=== PATIENT | female | born 1940 | race Two or more races ===

== ENCOUNTER 2020-07-01 17:54 | Inpatient (IN) | payer MEDICARE, MEDICAID ==
[~2020-07-01] VITALS: Ht 162.6 cm; Wt 81.2 kg
[~2020-07-01 17:54] MED LIST: AUGMENTIN 875-1 EAC1 ORAL; BACTRIM DS TAB1 EAC1 ORAL; NORCO 5-325 TA1 EAC1 ORAL; ZOFRAN4 MG ORAL
--- NOTE | 2020-07-01 18:23 | Emergency Room Report ---
History of Present Illness General Chief Complaint: Headache Source: Patient Present Illness HPI Disclaimer: Please note that this report is being documented using [employer] technology. This can lead to erroneous entry secondary to incorrect interpretation by the dictating instrument. HPI: 80-year-old female presents for evaluation of headache and fatigue. Symptoms present 3 days. Denies inciting injury but reports initially a pressure in the back of her head which then spread to the entire scalp. She reports feeling intermittently dizzy. No connection with head movements. Denies ringing in her ears or pain. Denies chest pain, palpitations, nausea, vomiting, diarrhea. She feels globally fatigued. Denies fevers but states she has felt "warm." Denies cough or congestion but states she does feel a little bit short of breath. She reports pressure in the frontal sinuses. Denies nasal congestion or sore throat. Received COVID-19 vaccine 3 weeks ago. PMH: Diabetes, obesity, hypertension PSH: Reviewed Allergies: Reviewed Social Hx: Reviewed Allergies: Coded Allergies: No Known Allergies (Unverified , 02/22/15) Nursing Documentation-PMH Hx Hypertension: Yes Hx Diabetes: Yes Hx Neurological Problems: Yes - Sciatica Review of Systems All Other Systems: negative except mentioned in HPI Physical Exam General: Awake and alert, appears moderately uncomfortable, hypertensive on arrival HEENT: NC/AT. EOMI. Cardiovascular: Tachycardic Resp: Slight tachypnea. Normal work of breathing. No cough, wheezing or crackles appreciated Abdomen: Abdomen is soft, nondistended. Obese abdomen. Nontender Skin: Intact. No abrasions, laceration or rash over the exposed skin MSK: Normal tone and bulk. Moving all extremities. No obvious deformity. Neuro: Awake and alert. Mentating appropriately. No ataxia on [id number] testing. Medical Decision Making Diagnostic Impression: Primary Impression: Hypertensive urgency Additional Impressions: Hiatal hernia Weakness Anemia ER Course 80-year-old female presents for evaluation of headache, fatigue of the past 3 days. Differential includes was not limited to hypertensive urgency, hypertensive emergency, ICH, CVA, ACS, dehydration, electrolyte abnormality, viral syndrome, labyrinthitis, vestibular neuritis, BPPV among others. EKG shows sinus tachycardia but no signs of acute ischemia. Chest x-ray shows some vascular congestion vs infiltratre herniation of bowel in the left side vs mass. CT ordered to further evaluate. CT shows large hiatal hernia, moderate left base atelectasis, evidence of cirrhosis and cholecystectomy. Patient's blood pressures are improving. She is still tachypneic with mild increase in work of breathing. May be mass-effect of the hernia. Heart rate borderline elevated. She appears weak. Antibiotics given for possible pneumonia coverage. Will admit for further work-up. Laboratory Tests Test 07/01/20 18:26 White Blood Count 12.9 K/UL (4.8-10.8) H Red Blood Count 4.28 M/UL (4.20-5.40) Hemoglobin 9.3 G/DL (12.0-16.0) L Hematocrit 31.1 % (37.0-47.0) L Mean Corpuscular Volume 73 FL (80-99) L Mean Corpuscular Hemoglobin 21.7 PG (27.0-31.0) L Mean Corpuscular Hemoglobin Concent 29.8 G/DL (32.0-36.0) L Red Cell Distribution Width 18.2 % (11.6-14.8) H Platelet Count 320 K/UL (150-450) Mean Platelet Volume 7.1 FL (6.5-10.1) Neutrophils (%) (Auto) 58.2 % (45.0-75.0) Lymphocytes (%) (Auto) 31.4 % (20.0-45.0) Monocytes (%) (Auto) 7.2 % (1.0-10.0) Eosinophils (%) (Auto) 1.9 % (0.0-3.0) Basophils (%) (Auto) 1.4 % (0.0-2.0) Prothrombin Time 12.3 SEC (9.30-11.50) H Prothrombin Time INR 1.1 (0.9-1.1) Activated Partial Thromboplast Time 26 SEC (23-33) Sodium Level 138 MMOL/L (136-145) Potassium Level 4.5 MMOL/L (3.5-5.1) Chloride Level 103 MMOL/L (98-107) Carbon Dioxide Level 22 MMOL/L (21-32) Anion Gap 13 mmol/L (5-15) Blood Urea Nitrogen 14 mg/dL (7-18) Creatinine 1.2 MG/DL (0.55-1.30) Estimated Glomerular Filtration Rate 43.1 mL/min (>60) Glucose Level 163 MG/DL (74-106) H Calcium Level 9.2 MG/DL (8.5-10.1) Total Bilirubin 0.2 MG/DL (0.2-1.0) Aspartate Amino Transferase (AST) 76 U/L (15-37) H Alanine Aminotransferase (ALT) 43 U/L (12-78) Alkaline Phosphatase 172 U/L (46-116) H Troponin I 0.048 ng/mL (0.000-0.056) Pro-B-Type Natriuretic Peptide 203 pg/mL (0-125) H Total Protein 8.5 G/DL (6.4-8.2) H Albumin 3.2 G/DL (3.4-5.0) L Globulin 5.3 g/dL Albumin/Globulin Ratio 0.6 (1.0-2.7) L EKG Diagnostic Results Troponin ordered: Yes When was troponin ordered?: Jul 01, 2020 EKG Time: 18:24 Rate: normal Rhythm: NSR ST Segments: no acute changes Other Impression Sinus tachycardia, normal axis. No obvious ST segment changes. Normal intervals. Rhythm Strip Diag. Results Rhythm Strip Time: 18:24 EP Interpretation: yes Rate: 120s Rhythm: NSR, no PVC's, no ectopy Chest X-Ray Diagnostic Results Chest X-Ray Diagnostic Results : Chest X-Ray Ordered: Yes # of Views/Limited/Complete: 1 View Indication: Shortness of Breath EP Interpretation: Yes Interpretation: no pneumothorax, other - Bilateral vascular congestion questionable infiltrate left lower lobe Impression: Other - Consolidation and vascular congestion Electronically Signed by: Electronically signed by Dr. Wni Eaton MD Disposition: ADMITTED INPATIENT Condition: Serious Win Eaton MD Jul 01, 2020 18:22
[2020-07-01 18:30] VITALS: BP 185/68
[2020-07-01] MEDS ORDERED: Labetalol 5mg/ml 20ml vial IV ONE (18:30)
[2020-07-01 18:38] LABS: BASOPHILS % (AUTO) 1.4 % (0.0-2.0); EOSINOPHILS % (AUTO) 1.9 % (0.0-3.0); HEMATOCRIT 31.1 % (37.0-47.0); HEMOGLOBIN 9.3 G/DL (12.0-16.0); LYMPHOCYTES % (AUTO) 31.4 % (20.0-45.0); MEAN CORPUSCULAR VOLUME 73 FL (80-99); MONOCYTES % (AUTO) 7.2 % (1.0-10.0); NEUTROPHILS % (AUTO) 58.2 % (45.0-75.0); PLATELET COUNT 320 K/UL (150-450); RED BLOOD COUNT 4.28 M/UL (4.20-5.40); RED CELL DISTRIBUTION WIDTH 18.2 % (11.6-14.8); WHITE BLOOD COUNT 12.9 K/UL (4.8-10.8)
[2020-07-01 18:45] LABS: CALCIUM 9.2 MG/DL (8.5-10.1); CREATININE 1.2 MG/DL (0.55-1.30); POTASSIUM 4.5 MMOL/L (3.5-5.1)
[2020-07-01 18:46] LABS: INR 1.1 (0.9-1.1)
[2020-07-01 18:58] LABS: ALBUMIN 3.2 G/DL (3.4-5.0); ALBUMIN/GLOBULIN RATIO 0.6 (1.0-2.7); BILIRUBIN,TOTAL 0.2 MG/DL (0.2-1.0)
[2020-07-01] MEDS ORDERED: Nitroglycerin 2% oint pkt TOPIC ONE (19:00)
--- NOTE | 2020-07-01 19:00 | NUR ---
pt brought in with complaints of weakness and elevated blood pressure, pt is calm AOx4, tachycardic, and hypertensive, and tachypnic ct pending
--- NOTE | 2020-07-01 19:10 | Diagnostic Imaging Report ---
EXAM: XR Chest, 1 View CLINICAL HISTORY: SOB TECHNIQUE: Frontal view of the chest. COMPARISON: No relevant prior studies available. FINDINGS: Lungs: Low lung volumes with bronchovascular crowding. Left midlung and base opacities could represent consolidation, some component of small pleural effusion, or hollow visceral herniation. Retrocardiac atelectasis without or with consolidation. Pleural space: See above. Heart: Unremarkable. No cardiomegaly. Mediastinum: Unremarkable. Bones/joints: No acute abnormality IMPRESSION: 1. Low lung volumes with bronchovascular crowding. 2. Left midlung and base opacities could represent consolidation, some component of small pleural effusion, or hollow visceral herniation. 3. Recommend CT chest or PA and lateral chest radiographs to further evaluate left midlung and base findings. 4. Retrocardiac atelectasis without or with consolidation.
[2020-07-01] MEDS ORDERED: LORazepam Inj 2mg/ml 1ml IV ONE (20:00)
--- NOTE | 2020-07-01 20:43 | Diagnostic Imaging Report ---
EXAM: CT Head Without Intravenous Contrast CLINICAL HISTORY: H/A TECHNIQUE: Axial computed tomography images of the head/brain without intravenous contrast. CTDI is 53.40 mGy and DLP is 1018.80 mGy-cm. One or more of the following dose reduction techniques were used: automated exposure control, adjustment of the mA and/or kV according to patient size, use of iterative reconstruction technique. COMPARISON: No relevant prior studies available. FINDINGS: Brain: Parenchymal volume loss. Nonspecific white matter hypoattenuation likely secondary to chronic microvascular ischemia. Cerebrovascular ASVD. No hemorrhage. Ventricles: Unremarkable. No ventriculomegaly. Bones/joints: Unremarkable. No acute fracture. Soft tissues: Unremarkable. Sinuses: Unremarkable as visualized. No acute sinusitis. Mastoid air cells: Unremarkable as visualized. No mastoid effusion. IMPRESSION: 1. No acute intracranial abnormality. 2. Mild chronic senescent findings above.
--- NOTE | 2020-07-01 20:51 | Diagnostic Imaging Report ---
EXAM: CT Chest Without Intravenous Contrast CLINICAL HISTORY: SOB TECHNIQUE: Axial computed tomography images of the chest without intravenous contrast. CTDI is 8.1 mGy and DLP is 239.7 mGy-cm. One or more of the following dose reduction techniques were used: automated exposure control, adjustment of the mA and/or kV according to patient size, use of iterative reconstruction technique. COMPARISON: No relevant prior studies available. FINDINGS: Lungs: Moderate left base passive atelectasis, correlate to exclude consolidation. Otherwise unremarkable lungs. Pleural space: Unremarkable. No pneumothorax. No significant effusion. Heart: Unremarkable. No cardiomegaly. No significant pericardial effusion. Mediastinum: Large hiatal hernia in the left thoracic cavity containing the majority of the organoaxial rotated, partially fluid- containing stomach. Bones/joints: Unremarkable. No acute fracture. No dislocation. Soft tissues: Recommend endoscopy to further evaluate distal esophageal/GE junction region soft tissue thickening, neoplasm not excluded. Vasculature: Unremarkable. No thoracic aortic aneurysm. Lymph nodes: Unremarkable. No enlarged lymph nodes. Liver: Cirrhosis. Gallbladder and bile ducts: Cholecystectomy. IMPRESSION: 1. Large hiatal hernia in the left thoracic cavity containing the majority of the organoaxial rotated, partially fluid-containing stomach. 2. Moderate left base passive atelectasis, correlate to exclude consolidation. 3. Otherwise unremarkable lungs. 4. Recommend endoscopy to further evaluate distal esophageal/GE junction region soft tissue thickening, neoplasm not excluded. 5. Cirrhosis. 6. Cholecystectomy.
[2020-07-01] MEDS ORDERED: Azithromycin 500 MG in NS 275 ML IV ONE (21:15)
[2020-07-01] MEDS ORDERED: cefTRIAXone 1 GM in NS 55 ML IVPB ONE (21:15)
--- NOTE | 2020-07-01 21:38 | NUR ---
ED Nurse Note: urine and blood cultures collected and sent to lab
--- NOTE | 2020-07-01 21:45 | NUR ---
Liana caicedo in [facility] - 07/01/20 at 2146 by NOLAN 7
--- NOTE | 2020-07-01 21:46 | NUR ---
ED Nurse Note: pt daughter took all persoanl belongings
[2020-07-01 21:51] LABS: BILIRUBIN, URINE NEGATIVE (NEGATIVE); GLUCOSE, URINE (UA) NEGATIVE (NEGATIVE); KETONES,URINE NEGATIVE (NEGATIVE); LEUKOCYTE ESTERASE ,URINE 1+ (NEGATIVE); NITRITE,URINE NEGATIVE (NEGATIVE); PH,URINE 5 (4.5-8.0); PROTEIN,URINE 2+ (NEGATIVE); UROBILINOGEN,URINE 1 MG/DL (0.0-1.0)
[2020-07-01 22:03] LABS: APPEARANCE,URINE SLIGHTLY CLOUDY; COLOR,URINE YELLOW
[2020-07-01 23:00] VITALS: BP 137/57
[2020-07-01 23:22] VITALS: BP 131/57
--- NOTE | 2020-07-01 23:30 | NUR ---
TRANSFER TO FLOOR: Patient transferred to Tele as ordered, per MD. Report given to Jaren RAY. Belongings and medications taken with daughter
--- NOTE | 2020-07-02 00:15 | NUR ---
NURSE NOTES: Received report from Shannan RAY at ER.The patient is alert and oriented x2 Croatian speaking, was noted with confusion, forgetfulness with mild anxiety also noted. she is on 2 liters of oxygen via NC with Spo2 @ 95%, the lungs sounds are diminished on auscultation as indicated. The patient body is warm and soft with Capillary refills <2 secs.The is no open sore noted on assessment.The patient has a Left AC 20g that is intact and asymptomatic.The bed in lowest level and call light within easy reach. Will continue to monitor as indicated.
[2020-07-02 00:27] VITALS: BP 140/71
--- NOTE | 2020-07-02 00:31 | NUR ---
NURSE NOTES: The physician Dr. Washington was called for admission orders as indicated and a voice message was left on the phone. Will followup FOR ADMISSION ORDERS.
--- NOTE | 2020-07-02 01:34 | NUR ---
NURSE NOTES: All admission orders obtained from Dr. Washington and executed as indicated.
[2020-07-02 04:00] VITALS: BP 139/72
--- NOTE | 2020-07-02 07:30 | NUR ---
NURSE NOTES: assessed pt, order for venous duplex to r/o DVT placed Addendum: 07/02/20 at 6034 by Willam Miranda RN WRONG PATIENT
--- NOTE | 2020-07-02 07:36 | NUR ---
NURSE HAND-OFF REPORT: Important Events on Shift:Alert and sleeping all night Patient Status: Diet: Pending Orders: Pending Results/Labs: Pending MD notification: Latest Vital Signs: Temperature 97.6 , Pulse 84 , B/P 139 /72 , Respiratory Rate 18 , O2 SAT 96 , Room Air, O2 Flow Rate 2.0 . Vital Sign Comment: EKG Rhythm: Sinus Rhythm Rhythm change?: N MD Notified?: - MD Response: Latest Crawford Fall Score: 60 Fall Risk: High Risk Safety Measures: Call light Within Reach, Bed Alarm Zone 1, Side Rails Side Rails x2, Bed position Low and Locked. Fall Precautions: Yellow Gown Door Sign Patient Fall Education Report given to .
[2020-07-02 09:00] VITALS: BP 136/63
--- NOTE | 2020-07-02 09:34 | NUR ---
assumed care for pt at 0730. pt is awake and in bed eating breakfast. pt is more alert per previous shift. pt is on 2L NC saturating at 95% O2 sat. call light is within reach, bed is locked and in lowest position. IV L AC 20g patent and flushes.
--- NOTE | 2020-07-02 10:45 | NUR ---
assisted pt to bedside commode and gait was unsteady. pt voided.
[2020-07-02 12:00] VITALS: BP 112/53
--- NOTE | 2020-07-02 12:04 | Consultation ---
Consult Note Consult Note DATE OF CONSULTATION: 07/02/2020 CONSULTING PHYSICIAN: Sebastien Chaney MD. ATTENDING PHYSICIAN: Dr. Washington REASON FOR CONSULTATION: Respiratory distress HISTORY OF PRESENT ILLNESS: This is an 80-year-old female with past medical history of hypertension, and diabetes mellitus, who presented to the ED for evaluation of headache and fatigue x3 days. She complained of pressure in the back of her head. Patient received COVID-19 vaccine 3 weeks ago. Chest x-ray showed some vascular congestion versus infiltrate, herniation of bowel in the left side versus mass. CT was ordered to further evaluate. CT of chest showed hiatal hernia, moderate left base atelectasis, evidence of cirrhosis and cholecystectomy. Head CT was negative for acute intracranial abnormality. Patient was admitted to the hospital for further work-up. PAST MEDICAL HISTORY: Hypertension, diabetes mellitus MEDICATIONS: Full list of home medication not available at this time ALLERGIES: No known allergies FAMILY HISTORY: Noncontributory REVIEW OF SYSTEMS: Negative except mentioned in HPI PHYSICAL EXAMINATION: VITAL SIGNS: Blood pressure 136/60, heart rate 89, respiratory rate 18, weight 81 kg, height 163 cm. General: Patient laying in bed comfortably, NAD, normal work of breathing on 2 L nasal cannula HEENT: Head exam reveals that the head is normocephalic, atraumatic without deformity or unusual swelling. Pupils are PERRLA. CHEST AND LUNGS: Reveals clear, normal, symmetrical breath sounds with no adventitious sounds. CARDIOVASCULAR: Reveals normal S1, S2 without murmurs, rubs, or clicks. ABDOMEN: Soft with no tenderness or organomegaly. RECTAL: Deferred. MUSCULOSKELETAL: There is no tenderness to palpation. Range of motion is normal. NEUROLOGICAL: Alert and oriented x3 , nonfocal LABORATORY DATA: Laboratory testing shows hemoglobin 9.3, hematocrit 31.1 Chemistries show glucose 163, AST 76, alk phos 172, BNP 203, albumin 3.2 Urinalysis shows 2+ protein, 11+ leukocyte esterase, and urine bacteria Assessment/Plan 1. UTI - on Abx - f/u UCx 2. Acute respiratory distress on admission -Continue supplemental oxygen; currently saturating well on 2L NC - No indication for steroid at this time 3. Hypertensive urgency - now BP better controlled 4. COVID-19 negative (07/01) 5. DVT ppx - on SCD 6. Left base atelectasis on chest CT - Normoxemia on low flow oxygen 7. ? pneumonia; afebrile, no leukocytosis - recommend Abx for pneumonia coverage The care for this patient was discussed with my supervising physician. Time spent for this case was approximately 31 minutes. Jovan Santos Jul 02, 2020 12:04
--- NOTE | 2020-07-02 13:15 | Consultation ---
Consult Note Consult Note I am asked to evaluate the patient at the request of Dr. Garvey Patient seen, record reviewed. HPI: 80-year-old female presents for evaluation of headache and fatigue. Symptoms present 3 days. Denies inciting injury but reports initially a pressure in the back of her head which then spread to the entire scalp. She re ports feeling intermittently dizzy. No connection with head movements. Denies ringing in her ears or pain. Denies chest pain, palpitations, nausea, vomiting, diarrhea. She feels globally fatigued. Denies fevers but states she has felt "warm." Denies cough or congestion but states she does feel a little bit short of breath. She reports pressure in the frontal sinuses. Denies nasal congestion or sore throat. Received COVID-19 vaccine 3 weeks ago. PMH: Diabetes, obesity, hypertension PSH: Reviewed Allergies: Reviewed Social Hx: Reviewed Allergies: No Known Allergies (Unverified , 02/22/15) Hx Hypertension: Yes Hx Diabetes: Yes Hx Neurological Problems: Yes - Sciatica PHYSICAL EXAMINATION: VITAL SIGNS: Temperature 98, pulse 103, blood pressure 151/63. HEAD AND NECK: No oral lesion. Has lost her teeth. HEART: Tachycardic. LUNGS: Clear. ABDOMEN: Soft. EXTREMITIES: No edema. NEUROLOGIC: Awake, responsive. LABORATORY AND DIAGNOSTIC DATA: WBC today 9.9, hemoglobin 9, hematocrit 31.2, platelets 296. Sodium 141, potassium 4.5, chloride 105, bicarb 28, BUN 12, creatinine 1.1, glucose is 148. Hemoglobin A1c 7.1. Albumin is 3.5. Cultures so far negative. COVID-19 test is negative. UA showed wbc's of 5 to 10, bacteria moderate. Chest x-ray, low lung volumes and bronchoalveolar opacities , left mid lung and base opacity could represent consolidation. CT of chest showed large left hiatal hernia, moderate left base atelectasis versus consolidation, cirrhosis, cholecystectomy. . Assessment/Plan Hypertensive urgency Anemia, low MCV Weakness Hiatus hernia UTI Per orders Adjust blood pressure medication Anemia work-up Antibiotics Monitor blood pressure and renal parameters Gordon Pritchett MD Jul 02, 2020 13:15
--- NOTE | 2020-07-02 14:21 | Cardiac Electrophysiology PN ---
Subjective Subjective [id number] Objective Last 24 Hour Vital Signs Date Time Temp Pulse Resp B/P (MAP) Pulse Ox O2 Delivery O2 Flow Rate FiO2 07/02/20 13:45 98 153/77 07/02/20 09:00 97.4 89 18 136/63 (87) 96 07/02/20 08:00 93 07/02/20 04:00 97.6 84 18 139/72 (94) 96 07/02/20 01:02 83 07/02/20 00:27 97.8 74 19 140/71 (94) 95 07/02/20 00:16 Nasal Cannula 2.0 07/01/20 23:22 98.5 85 16 131/57 100 Room Air 07/01/20 23:00 98.5 87 20 137/57 100 Room Air 07/01/20 18:55 152/56 07/01/20 18:30 98.5 122 18 185/68 100 Room Air 07/01/20 18:30 Room Air 07/01/20 18:18 98.4 118 18 183/66 (105) 93 Room Air Intake and Output 07/01/20 07/02/20 19:00 07:00 Intake Total 30 ml Balance 30 ml Intake Oral 30 ml # Voids 1 Laboratory Tests Test 07/01/20 18:26 07/01/20 21:30 White Blood Count 12.9 K/UL (4.8-10.8) H Red Blood Count 4.28 M/UL (4.20-5.40) Hemoglobin 9.3 G/DL (12.0-16.0) L Hematocrit 31.1 % (37.0-47.0) L Mean Corpuscular Volume 73 FL (80-99) L Mean Corpuscular Hemoglobin 21.7 PG (27.0-31.0) L Mean Corpuscular Hemoglobin Concent 29.8 G/DL (32.0-36.0) L Red Cell Distribution Width 18.2 % (11.6-14.8) H Platelet Count 320 K/UL (150-450) Mean Platelet Volume 7.1 FL (6.5-10.1) Neutrophils (%) (Auto) 58.2 % (45.0-75.0) Lymphocytes (%) (Auto) 31.4 % (20.0-45.0) Monocytes (%) (Auto) 7.2 % (1.0-10.0) Eosinophils (%) (Auto) 1.9 % (0.0-3.0) Basophils (%) (Auto) 1.4 % (0.0-2.0) Prothrombin Time 12.3 SEC (9.30-11.50) H Prothromb Time International Ratio 1.1 (0.9-1.1) Activated Partial Thromboplast Time 26 SEC (23-33) Sodium Level 138 MMOL/L (136-145) Potassium Level 4.5 MMOL/L (3.5-5.1) Chloride Level 103 MMOL/L (98-107) Carbon Dioxide Level 22 MMOL/L (21-32) Anion Gap 13 mmol/L (5-15) Blood Urea Nitrogen 14 mg/dL (7-18) Creatinine 1.2 MG/DL (0.55-1.30) Estimat Glomerular Filtration Rate 43.1 mL/min (>60) Glucose Level 163 MG/DL (74-106) H Calcium Level 9.2 MG/DL (8.5-10.1) Total Bilirubin 0.2 MG/DL (0.2-1.0) Aspartate Amino Transf (AST/SGOT) 76 U/L (15-37) H Alanine Aminotransferase (ALT/SGPT) 43 U/L (12-78) Alkaline Phosphatase 172 U/L (46-116) H Troponin I 0.048 ng/mL (0.000-0.056) Pro-B-Type Natriuretic Peptide 203 pg/mL (0-125) H Total Protein 8.5 G/DL (6.4-8.2) H Albumin 3.2 G/DL (3.4-5.0) L Globulin 5.3 g/dL Albumin/Globulin Ratio 0.6 (1.0-2.7) L Urine Color Yellow Urine Appearance Slightly cloudy Urine pH 5 (4.5-8.0) Urine Specific [place] 1.025 (1.005-1.035) Urine Protein 2+ (NEGATIVE) H Urine Glucose (UA) Negative (NEGATIVE) Urine Ketones Negative (NEGATIVE) Urine Blood Negative (NEGATIVE) Urine Nitrite Negative (NEGATIVE) Urine Bilirubin Negative (NEGATIVE) Urine Urobilinogen 1 MG/DL (0.0-1.0) H Urine Leukocyte Esterase 1+ (NEGATIVE) H Urine RBC 0-2 /HPF (0 - 2) Urine WBC 5-10 /HPF (0 - 2) H Urine Squamous Epithelial Cells Moderate /LPF (NONE/OCC) H Urine Bacteria Moderate /HPF (NONE) H Microbiology Date/Time Source Procedure Growth Status 07/01/20 18:53 Nasopharynx SARS-CoV-2 Antigen (Rapid)([facility]) - Final Complete Jude Stone MD Jul 02, 2020 14:21
--- NOTE | 2020-07-02 15:14 | Consultation ---
DATE OF CONSULTATION: 07/02/2020 CARDIOLOGY CONSULTATION CONSULTING PHYSICIAN: Jude Stone MD. REFERRING PHYSICIAN: Swathi Washington MD. REASON FOR CONSULTATION: Management of shortness of breath and accelerated hypertension. HISTORY OF PRESENT ILLNESS: The patient is an 80-year-old lady with history of hypertension, diabetes who presented to emergency room with fatigue and headache as well as pressure in the back of her head. The patient received COVID vaccine three weeks ago. Chest x-ray showed vascular congestion versus infiltrate. CT of the chest showed hiatal hernia, moderate left-sided atelectasis, evidence of cirrhosis, and cholecystectomy. Head CT was negative for acute intracranial pathology. The patient was admitted and a Cardiology consultation was obtained for further evaluation. REVIEW OF SYSTEMS: Negative other than what was mentioned in the history of present illness. PAST MEDICAL HISTORY: As mentioned above. FAMILY HISTORY: Noncontributory. ALLERGIES: She has no known drug allergies. SOCIAL HISTORY: Denies smoking, drinking alcohol, or using drugs. PHYSICAL EXAMINATION: VITAL SIGNS: Blood pressure 153/77, pulse 98, respirations 18, temperature 97.4. HEAD AND NECK: No JVD. LUNGS: Clear. CARDIOVASCULAR: Regular S1 and S2 with no gallop or murmur. ABDOMEN: Soft. EXTREMITIES: A 1+ pitting edema. LABORATORY DATA: Labs show white count 12.9, hemoglobin 9.7, hematocrit 31.1, platelet count 320. Sodium is 138, potassium 4.5, BUN of 14, creatinine 1.2, and glucose of 163. Alkaline phosphatase is 172. BNP is 203. Troponin is negative. ASSESSMENT AND PLAN: 1. Shortness of breath. EKG shows sinus rhythm with nonspecific ST-T wave abnormalities. First troponin is negative. We will completely rule out PA protocol. We will get an echocardiogram. 2. Accelerated hypertension. Blood pressure is currently better on amlodipine 5 mg b.i.d. and p.r.n. clonidine. The patient received IV labetalol in the emergency room. 3. Shortness of breath and possible pneumonia. Further evaluation by Dr. Chaney. 4. Left base atelectasis on chest CT and possible pneumonia, antibiotic. Thank you very much for allowing me to participate in the care of this patient. Please do not hesitate to contact me for any questions regarding my evaluation. Sincerely, Jude Stone M.D. DR: Lyndsey JOB#: [id number] CC:
[2020-07-02 16:00] VITALS: BP 119/69
--- NOTE | 2020-07-02 17:06 | NUR ---
pt has been eating comfortably in bed and resting. call light is within reach and needs have been met.
[2020-07-02] MEDS: Docusate 100mg cap ORAL SCH (18:29)
--- NOTE | 2020-07-02 19:35 | NUR ---
NURSE HAND-OFF: Important Events on Shift:[] Patient Status: [] Diet: [] Pending Orders: [] Pending Results/Labs:[] Pending MD notification:[] Latest Vital Signs: Temperature 98.0 , Pulse 88 , B/P 119 /69 , Respiratory Rate 18 , O2 SAT 95 , Room Air, O2 Flow Rate 2.0 . Vital Sign Comment: [] Latest Crawford Fall Score: 60 Fall Risk: High Risk Safety Measures: Call light Within Reach, Bed Alarm Zone 1, Side Rails Side Rails x2, Bed position Low and Locked. Fall Precautions: Yellow Socks Yellow Gown Door Sign Patient Fall Education Report given to []. ronnie RAY
[2020-07-02 20:00] VITALS: BP 155/66
[2020-07-02] MEDS: cefTRIAXone 1 GM in D5W 55 ML IVPB SCH (21:35)
--- NOTE | 2020-07-02 23:59 | History and Physical Report ---
DATE OF ADMISSION: 07/01/2020 HISTORY OF PRESENT ILLNESS: Patient only speaks Georgian. Imaging shows cirrhosis, large hiatal hernia. Patient also came in, admitted for hypertensive urgency. Patient is diabetic, complained of shortness of breath, was on oxygen. Also weakness and some mild nonproductive cough. Chest x-ray shows left lower lobe pneumonia. Patient admitted for pneumonia, hypertension, shortness of breath. Patient also has large hiatal hernia contributing to her shortness of breath. Denies nausea, vomiting, or diarrhea. Denies heartburn. Denies fever or chills. Denies sore throat. Denies headache. PAST MEDICAL HISTORY: GERD, constipation, hypertension, hiatal hernia, NIDDM, and hernia. PAST SURGICAL HISTORY: None. ALLERGIES: None. MEDICATIONS: None. FAMILY HISTORY: Noncontributory. SOCIAL HISTORY: Denies history of smoking. Denies history of alcohol abuse. Denies history of drug abuse. REVIEW OF SYSTEMS: HEENT: Denies headaches. RESPIRATORY: Reports shortness of breath and mild cough. CARDIOVASCULAR: Denies chest pain. No orthopnea. GASTROINTESTINAL: Denies nausea, vomiting, or diarrhea. Does have heartburn. Denies any significant abdominal pain. EXTREMITIES: Denies pain in lower extremities. CENTRAL NERVOUS SYSTEM: Denies change in speech pattern. Feels weakness. PHYSICAL EXAMINATION: VITAL SIGNS: Temperature is 97.6, pulse is 84, blood pressure is 153/77. Patient is on oxygen. HEENT: PERRLA. NECK: Supple. No lymphadenopathy. CHEST: Clear to auscultation. CARDIOVASCULAR: Regular rate and rhythm. No murmurs or extra sounds. GASTROINTESTINAL: Soft, nontender, nondistended. No organomegaly. Abdomen is soft. EXTREMITIES: No edema. Moves all four extremities. NEUROLOGIC: Has generalized weakness. Reflexes on both sides. Chest x-ray shows possible left lower lobe pneumonia. LABORATORY DATA: WBC of 12.9, hemoglobin 9.3, platelets 320. Sodium 138, potassium 4.5, BUN of 14, creatinine 1.2, glucose of 163. Troponin 0.048. ASSESSMENT AND PLAN: 1. Chest x-ray shows left lower lobe pneumonia. 2. Hypertension. 3. Shortness of breath. 4. Hiatal hernia. 5. Possible cirrhosis on the imaging. I have consulted basically Dr. Kulkarni, Dr. Sebastien Chaney, Dr. Pritchett, Dr. Keanu Goodson to help with the above-mentioned abnormal findings, abnormal imaging studies, abnormal laboratories, and abnormal x-ray. Antibiotics per Dr. Keanu Goodson. Swathi Washington M.D. DR: SAMUEL JOB#: [id number] CC:
[2020-07-03 00:33] VITALS: BP 155/67
--- NOTE | 2020-07-03 00:59 | Consultation ---
DATE OF CONSULTATION: 07/02/2020 GASTROENTEROLOGY CONSULTATION CONSULTING PHYSICIAN: Lalita Martinez M.D. CHIEF COMPLAINT: "I was asked to see this patient for evaluation of suspected cirrhosis." HISTORY OF PRESENT ILLNESS: The patient is an 80-year-old woman, who comes into the hospital due to fatigue and headaches. Her CT imaging on record shows a history of possible cirrhotic liver, and therefore, this consultation was generated. In addition, her admission laboratory tests show a significant microcytic anemia. The patient denies abdominal pain, nausea, vomiting, or diarrhea except for one episode. She had no history of liver disease and no alcohol use. No history of hepatitis or jaundice. She has never had endoscopy or colonoscopy in the past. PAST MEDICAL HISTORY: Remarkable for a history of diabetes, hypertension, and hypercholesterolemia. MEDICATIONS: Include metformin, few blood pressure medications, and aspirin. The patient is unaware of the exact names of her medications. FAMILY HISTORY: Negative for liver disease. SOCIAL HISTORY: The patient does not drink alcohol or smoke. REVIEW OF SYSTEMS: Negative. ALLERGIES: None. PHYSICAL EXAMINATION: GENERAL: A well-developed, well-nourished woman, seen in the room. HEENT: Normocephalic and atraumatic. Sclerae anicteric. Oropharynx clear. NECK: Supple. CHEST: Clear to auscultation. CARDIOVASCULAR: Revealed regular rate. ABDOMEN: Soft, nontender, nondistended. There is no organomegaly. EXTREMITIES: Revealed no edema. LABORATORY DATA: Noted. ASSESSMENT: This patient presents with severe microcytic anemia, which is concerning for iron deficiency. The patient does have a large hernia of the stomach on chest CT, and therefore, this anemia could potentially be from Moe type of ulcers seen in this setting, however, the patient should undergo an endoscopy and colonoscopy once stabilized to evaluate the GI tract. In addition, she has had a history of possible cirrhosis based on her CT imaging. I will order an abdominal ultrasound to evaluate her liver further and also order hepatitis serology, autoimmune markers, and also alpha fetoprotein. The patient is already having iron panel checked tomorrow morning and her iron can be replaced intravenously afterwards. RECOMMENDATIONS: Per above discussion and per orders in the chart. Thank you for asking me to participate in the care of this patient. Lalita Martinez M.D. DR: TY JOB#: [id number] CC:
[2020-07-03 04:24] VITALS: BP 150/71
--- NOTE | 2020-07-03 07:28 | NUR ---
Assumed pt's care at 1999 from [facility]. Pt's aox3, non thai speaking. Pt denies any pain. VSS. Respirations even and unlabored. Cont ABT rocephin IV for UTI with no adv reactions. Safety and comfort measures maintained, call light within reach.
--- NOTE | 2020-07-03 07:48 | NUR ---
NURSE HAND-OFF REPORT: Important Events on Shift: Cont abt IV rocephin, no adv reactions noted. No change in condition. Patient Status: Diet: Pending Orders: Pending Results/Labs: Pending MD notification: Latest Vital Signs: Temperature 98.4 , Pulse 83 , B/P 150 /71 , Respiratory Rate 20 , O2 SAT 95 , Room Air, O2 Flow Rate 2.0 . Vital Sign Comment: EKG Rhythm: Sinus Rhythm Rhythm change?: N MD Notified?: - MD Response: Latest Crawford Fall Score: 60 Fall Risk: High Risk Safety Measures: Call light Within Reach, Bed Alarm Zone 1, Side Rails Side Rails x2, Bed position Low and Locked. Fall Precautions: Yellow Socks Yellow Gown Door Sign Patient Fall Education Report given to .
[2020-07-03 08:00] VITALS: BP 151/63
[2020-07-03 09:03] LABS: BASOPHILS % (AUTO) 1.4 % (0.0-2.0); EOSINOPHILS % (AUTO) 3.7 % (0.0-3.0); HEMATOCRIT 31.2 % (37.0-47.0); LYMPHOCYTES % (AUTO) 39.7 % (20.0-45.0); MEAN CORPUSCULAR VOLUME 74 FL (80-99); MONOCYTES % (AUTO) 8.2 % (1.0-10.0); NEUTROPHILS % (AUTO) 47.1 % (45.0-75.0); PLATELET COUNT 296 K/UL (150-450); RED BLOOD COUNT 4.24 M/UL (4.20-5.40); WHITE BLOOD COUNT 9.9 K/UL (4.8-10.8)
--- NOTE | 2020-07-03 09:11 | Pulmonology Progress Note ---
Subjective ROS Limited/Unobtainable: No Interval Events: none major reported per nursing Constitutional: Reports: no symptoms HEENT: Repors: no symptoms Respiratory: Reports: shortness of breath Cardiovascular: Reports: no symptoms Gastrointestinal/Abdominal: Reports: no symptoms Allergies: Coded Allergies: No Known Allergies (Unverified , 02/22/15) Objective Last 24 Hour Vital Signs Date Time Temp Pulse Resp B/P (MAP) Pulse Ox O2 Delivery O2 Flow Rate FiO2 07/03/20 04:38 83 07/03/20 04:24 98.4 94 20 150/71 (97) 95 07/03/20 00:33 98.6 94 20 155/67 (96) 97 07/03/20 00:00 95 07/02/20 21:34 95 155/66 07/02/20 21:00 Nasal Cannula 2.0 07/02/20 20:00 98.5 95 20 155/66 (95) 95 07/02/20 20:00 90 07/02/20 16:00 88 07/02/20 16:00 98.0 96 18 119/69 (86) 95 07/02/20 13:45 98 153/77 07/02/20 12:00 97.7 94 18 112/53 (72) 07/02/20 12:00 99 Intake and Output 07/02/20 07/03/20 19:00 07:00 Intake Total 640 ml Output Total 400 ml Balance 240 ml Intake Oral 640 ml Output Urine Total 400 ml # Voids 3 General Appearance: no acute distress HEENT: atraumatic Respiratory: lungs clear Cardiovascular: normal rate, regular rhythm Abdomen: tender - RUQ Microbiology Date/Time Source Procedure Growth Status 07/01/20 21:30 Urine,Clean Catch Urine Culture - Preliminary NO GROWTH AFTER 24 HOURS Resulted 07/01/20 21:30 Blood Blood Culture - Preliminary NO GROWTH AFTER 24 HOURS Resulted 07/01/20 21:30 Blood Blood Culture - Preliminary NO GROWTH AFTER 24 HOURS Resulted 07/01/20 18:53 Nasopharynx SARS-CoV-2 Antigen (Rapid)(PHUONG) - Final Complete Laboratory Tests 07/03/20 08:52: White Blood Count [Pending], Red Blood Count [Pending], Hemoglobin [Pending], Hematocrit [Pending], Mean Corpuscular Volume [Pending], Mean Corpuscular Hemoglobin [Pending], Mean Corpuscular Hemoglobin Concent [Pending], Red Cell Distribution Width [Pending], Platelet Count [Pending], Mean Platelet Volume [Pending], Neutrophils (%) (Auto) [Pending], Lymphocytes (%) (Auto) [Pending], Monocytes (%) (Auto) [Pending], Eosinophils (%) (Auto) [Pending], Basophils (%) (Auto) [Pending], Sodium Level [Pending], Potassium Level [Pending], Chloride Level [Pending], Carbon Dioxide Level [Pending], Blood Urea Nitrogen [Pending], Creatinine [Pending], Estimat Glomerular Filtration Rate [Pending], Glucose Level [Pending], Hemoglobin A1c [Pending], Uric Acid [Pending], Calcium Level [Pending], Phosphorus Level [Pending], Magnesium Level [Pending], Iron Level [Pending], Unsaturated Iron Binding [Pending], Ferritin [Pending], Total Bilirubin [Pending], Gamma Glutamyl Transpeptidase [Pending], Aspartate Amino Transf (AST/SGOT) [Pending], Alanine Aminotransferase (ALT/SGPT) [Pending], A lkaline Phosphatase [Pending], Troponin I [Pending], C-Reactive Protein, Quantitative [Pending], Pro-B-Type Natriuretic Peptide [Pending], Total Protein [Pending], Albumin [Pending], Globulin [Pending], Triglycerides Level [Pending], Cholesterol Level [Pending], LDL Cholesterol [Pending], HDL Cholesterol [Pending], Cholesterol/HDL Ratio [Pending], Alpha Fetoprotein [Pending], Vitamin B12 Level [Pending], Folate [Pending], Thyroid Stimulating Hormone (TSH) [Pending], Anti-Nuclear Antibody Screen [Pending], F-Actin IgG Antibody [Pending], Hepatitis A IgM Antibody [Pending], Hepatitis B Surface Antigen [Pending], Hepatitis B Core IgM Antibody [Pending], Hepatitis C Antibody [Pending] Current Medications Medications (Trade) Dose Ordered Sig/Yasmany Route PRN Reason Start Time Stop Time Status Last Admin Dose Admin Amlodipine Besylate (Norvasc) 2.5 mg Q12HR ORAL 07/02/20 13:30 08/01/20 13:29 07/02/20 21:34 Ceftriaxone Sodium 1 gm/ Dextrose 55 ml @ 110 mls/hr Q24H IVPB 07/02/20 21:00 07/09/20 20:59 07/02/20 21:35 Clonidine HCl (Catapres Tab) 0.1 mg Q6H PRN ORAL For High Blood Pressure 07/02/20 02:15 09/30/20 02:14 Docusate Sodium (Colace) 100 mg THREE TIMES A DAY ORAL 07/02/20 18:00 08/01/20 17:59 07/02/20 18:29 Pantoprazole (Protonix) 40 mg EVERY 12 HOURS ORAL 07/02/20 21:00 08/01/20 20:59 07/02/20 21:32 Assessment/Plan Assessment/Plan 1. UTI - on Abx - f/u UCx 2. Acute respiratory distress on admission -Continue supplemental oxygen; currently saturating well on 2L NC - No indication for steroid at this time - Cardio w/u with serial trops and 2D Echo 3. Hypertensive urgency - now BP better controlled 4. COVID-19 negative (07/01) 5. DVT ppx - on SCD 6. Left base atelectasis on chest CT - Normoxemia on low flow oxygen 7. ? pneumonia; afebrile, no leukocytosis - recommend Abx for pneumonia coverage 8. ? Liver cirrhosis - GI following - Abd US, hep panel The care for this patient was discussed with my supervising physician. Time spent for this case was approximately 31 minutes. Jovan Santos Jul 03, 2020 09:11
[2020-07-03] MEDS: Docusate 100mg cap ORAL SCH ×3 (09:50→17:07)
[2020-07-03 10:13] LABS: ALANINE AMINOTRANSFERASE 56 U/L (12-78); ALBUMIN 3.1 G/DL (3.4-5.0); ALBUMIN/GLOBULIN RATIO 0.6 (1.0-2.7); ALKALINE PHOSPHATASE 160 U/L (46-116); ANION GAP 8 mmol/L (5-15); ASPARTATE AMINO TRANSFERASE 97 U/L (15-37); BILIRUBIN,TOTAL 0.5 MG/DL (0.2-1.0); BLOOD UREA NITROGEN 12 mg/dL (7-18); CALCIUM 9.6 MG/DL (8.5-10.1); CARBON DIOXIDE 28 MMOL/L (21-32); CHLORIDE 105 MMOL/L (98-107); CHOLESTEROL 132 MG/DL (< 200); CREATININE 1.1 MG/DL (0.55-1.30); FERRITIN 11 NG/ML (8-388); GAMMA GLUTAMYL TRANSPEPTIDASE 155 U/L (5-85); HDL CHOLESTEROL 58 MG/DL (40-60); PHOSPHORUS 3.7 MG/DL (2.5-4.9); POTASSIUM 4.5 MMOL/L (3.5-5.1); SODIUM 141 MMOL/L (136-145); TRIGLYCERIDES 71 MG/DL (30-150)
[2020-07-03 11:11] LABS: % IRON SATURATION 7 % (15-50); IRON 35 ug/dL (50-175); TOTAL IRON BINDING CAPACITY 508 ug/dL (250-450)
[2020-07-03 12:00] VITALS: BP 161/80
--- NOTE | 2020-07-03 12:08 | Cardiac Electrophysiology PN ---
Assessment/Plan Assessment/Plan 1. Shortness of breath. EKG shows sinus rhythm with nonspecific ST-T wave abnormalities. Ruled out VT protocol. EF 65% on echocardiogram. 2. Accelerated hypertension. Increase Norvasc to 5 po bid On p.r.n. clonidine. The patient received IV labetalol in the emergency room. 3. Shortness of breath and possible pneumonia. Further evaluation by Dr. Chaney. 4. Left base atelectasis on chest CT and possible pneumonia, antibiotic. Subjective Subjective BP better. No CP or SOB Objective Last 24 Hour Vital Signs Date Time Temp Pulse Resp B/P (MAP) Pulse Ox O2 Delivery O2 Flow Rate FiO2 07/03/20 09:50 103 151/63 07/03/20 09:00 Nasal Cannula 2.0 07/03/20 08:00 98.0 103 19 151/63 (92) 96 07/03/20 08:00 67 07/03/20 04:38 83 07/03/20 04:24 98.4 94 20 150/71 (97) 95 07/03/20 00:33 98.6 94 20 155/67 (96) 97 07/03/20 00:00 95 07/02/20 21:34 95 155/66 07/02/20 21:00 Nasal Cannula 2.0 07/02/20 20:00 98.5 95 20 155/66 (95) 95 07/02/20 20:00 90 07/02/20 16:00 88 07/02/20 16:00 98.0 96 18 119/69 (86) 95 07/02/20 13:45 98 153/77 Intake and Output 07/02/20 07/03/20 19:00 07:00 Intake Total 640 ml Output Total 400 ml Balance 240 ml Intake Oral 640 ml Output Urine Total 400 ml # Voids 3 Laboratory Tests Test 07/03/20 08:52 White Blood Count 9.9 K/UL (4.8-10.8) Red Blood Count 4.24 M/UL (4.20-5.40) Hemoglobin 9.0 G/DL (12.0-16.0) L Hematocrit 31.2 % (37.0-47.0) L Mean Corpuscular Volume 74 FL (80-99) L Mean Corpuscular Hemoglobin 21.3 PG (27.0-31.0) L Mean Corpuscular Hemoglobin Concent 29.0 G/DL (32.0-36.0) L Red Cell Distribution Width 17.0 % (11.6-14.8) H Platelet Count 296 K/UL (150-450) Mean Platelet Volume 6.6 FL (6.5-10.1) Neutrophils (%) (Auto) 47.1 % (45.0-75.0) Lymphocytes (%) (Auto) 39.7 % (20.0-45.0) Monocytes (%) (Auto) 8.2 % (1.0-10.0) Eosinophils (%) (Auto) 3.7 % (0.0-3.0) H Basophils (%) (Auto) 1.4 % (0.0-2.0) Sodium Level 141 MMOL/L (136-145) Potassium Level 4.5 MMOL/L (3.5-5.1) Chloride Level 105 MMOL/L (98-107) Carbon Dioxide Level 28 MMOL/L (21-32) Anion Gap 8 mmol/L (5-15) Blood Urea Nitrogen 12 mg/dL (7-18) Creatinine 1.1 MG/DL (0.55-1.30) Estimat Glomerular Filtration Rate 47.6 mL/min (>60) Glucose Level 148 MG/DL (74-106) H Hemoglobin A1c 7.1 % (4.3-6.0) H Uric Acid 5.4 MG/DL (2.6-7.2) Calcium Level 9.6 MG/DL (8.5-10.1) Phosphorus Level 3.7 MG/DL (2.5-4.9) Magnesium Level 1.8 MG/DL (1.8-2.4) Iron Level 35 ug/dL (50-175) L Total Iron Binding Capacity 508 ug/dL (250-450) H Percent Iron Saturation 7 % (15-50) L Unsaturated Iron Binding 473 ug/dL (112-346) H Ferritin 11 NG/ML (8-388) Total Bilirubin 0.5 MG/DL (0.2-1.0) Gamma Glutamyl Transpeptidase 155 U/L (5-85) H Aspartate Amino Transf (AST/SGOT) 97 U/L (15-37) H Alanine Aminotransferase (ALT/SGPT) 56 U/L (12-78) Alkaline Phosphatase 160 U/L (46-116) H Troponin I 0.046 ng/mL (0.000-0.056) C-Reactive Protein, Quantitative < 0.4 mg/dL (0.00-0.90) Pro-B-Type Natriuretic Peptide 223 pg/mL (0-125) H Total Protein 8.7 G/DL (6.4-8.2) H Albumin 3.1 G/DL (3.4-5.0) L Globulin 5.6 g/dL Albumin/Globulin Ratio 0.6 (1.0-2.7) L Triglycerides Level 71 MG/DL (30-150) Cholesterol Level 132 MG/DL (< 200) LDL Cholesterol 64 mg/dL (<100) HDL Cholesterol 58 MG/DL (40-60) Cholesterol/HDL Ratio 2.3 (3.3-4.4) L Alpha Fetoprotein Pending Vitamin B12 Level 1866 PG/ML (193-986) H Folate 42.4 NG/ML (8.6-58.9) Thyroid Stimulating Hormone (TSH) 1.734 uiU/mL (0.358-3.740) Anti-Nuclear Antibody Screen Pending F-Actin IgG Antibody Pending Hepatitis A IgM Antibody Pending Hepatitis B Surface Antigen Pending Hepatitis B Core IgM Antibody Pending Hepatitis C Antibody Pending Microbiology Date/Time Source Procedure Growth Status 07/01/20 21:30 Urine,Clean Catch Urine Culture - Preliminary NO GROWTH AFTER 24 HOURS Resulted 07/01/20 21:30 Blood Blood Culture - Preliminary NO GROWTH AFTER 24 HOURS Resulted 07/01/20 21:30 Blood Blood Culture - Preliminary NO GROWTH AFTER 24 HOURS Resulted 07/01/20 18:53 Nasopharynx SARS-CoV-2 Antigen (Rapid)(PHUONG) - Final Complete Objective HEAD AND NECK: No JVD. LUNGS: Clear. CARDIOVASCULAR: Regular S1 and S2 with no gallop or murmur. ABDOMEN: Soft. EXTREMITIES: 1+ pitting edema. Jude Stone MD Jul 03, 2020 12:08
--- NOTE | 2020-07-03 13:21 | Nephrology Progress Note ---
Assessment/Plan Problem List: (1) Iron deficiency anemia (2) Hypertensive urgency (3) UTI (urinary tract infection) (4) DMII (diabetes mellitus, type 2) Assessment: Hemoglobin A1c 7.1 Assessment Hypertensive urgency Anemia, low MCV Weakness Hiatus hernia UTI DM Plan July 03: Blood pressure needs better control, hence lisinopril added to Norvasc. IV iron initiated for low iron anemia. Continue per consultants. Stable from renal standpoint of view. Antibiotic for UTI in process. Subjective ROS Limited/Unobtainable: No Constitutional: Reports: malaise Objective Objective Last 24 Hour Vital Signs Date Time Temp Pulse Resp B/P (MAP) Pulse Ox O2 Delivery O2 Flow Rate FiO2 07/03/20 12:00 97.7 102 20 161/80 (107) 92 07/03/20 09:50 103 151/63 07/03/20 09:00 Nasal Cannula 2.0 07/03/20 08:00 98.0 103 19 151/63 (92) 96 07/03/20 08:00 67 07/03/20 04:38 83 07/03/20 04:24 98.4 94 20 150/71 (97) 95 07/03/20 00:33 98.6 94 20 155/67 (96) 97 07/03/20 00:00 95 07/02/20 21:34 95 155/66 07/02/20 21:00 Nasal Cannula 2.0 07/02/20 20:00 98.5 95 20 155/66 (95) 95 07/02/20 20:00 90 07/02/20 16:00 88 07/02/20 16:00 98.0 96 18 119/69 (86) 95 07/02/20 13:45 98 153/77 Intake and Output 07/02/20 07/03/20 19:00 07:00 Intake Total 640 ml Output Total 400 ml Balance 240 ml Intake Oral 640 ml Output Urine Total 400 ml # Voids 3 Current Medications Medications (Trade) Dose Ordered Sig/Yasmany Route PRN Reason Start Time Stop Time Status Last Admin Dose Admin Amlodipine Besylate (Norvasc) 2.5 mg ONCE ORAL 07/03/20 13:15 07/03/20 15:30 Amlodipine Besylate (Norvasc) 5 mg Q12HR ORAL 07/03/20 21:00 08/02/20 20:59 Ceftriaxone Sodium 1 gm/ Dextrose 55 ml @ 110 mls/hr Q24H IVPB 07/02/20 21:00 07/09/20 20:59 07/02/20 21:35 Clonidine HCl (Catapres Tab) 0.1 mg Q6H PRN ORAL For High Blood Pressure 07/02/20 02:15 09/30/20 02:14 Docusate Sodium (Colace) 100 mg THREE TIMES A DAY ORAL 07/02/20 18:00 08/01/20 17:59 07/03/20 09:50 Iron Sucrose 100 mg/Sodium Chloride 60 ml @ 240 mls/hr BEDTIME IVPB 07/04/20 21:00 07/08/20 21:14 UNV Iron Sucrose 200 mg/Sodium Chloride 120 ml @ 240 mls/hr ONCE ONCE IVPB 07/03/20 13:30 07/03/20 13:59 UNV Pantoprazole (Protonix) 40 mg EVERY 12 HOURS ORAL 07/02/20 21:00 08/01/20 20:59 07/03/20 09:50 Laboratory Tests 07/03/20 08:52: White Blood Count 9.9, Red Blood Count 4.24, Hemoglobin 9.0L, Hematocrit 31.2L, Mean Corpuscular Volume 74L, Mean Corpuscular Hemoglobin 21.3L, Mean Corpuscular Hemoglobin Concent 29.0L, Red Cell Distribution Width 17.0H, Platelet Count 296, Mean Platelet Volume 6.6, Neutrophils (%) (Auto) 47.1, Lymphocytes (%) (Auto) 39.7, Monocytes (%) (Auto) 8.2, Eosinophils (%) (Auto) 3.7H, Basophils (%) (Auto) 1.4, Sodium Level 141, Potassium Level 4.5, Chloride Level 105, Carbon Dioxide Level 28, Anion Gap 8, Blood Urea Nitrogen 12, Creatinine 1.1, Estimat Glomerular Filtration Rate 47.6, Glucose Level 148H, Hemoglobin A1c 7.1H, Uric Acid 5.4, Calcium Level 9.6, Phosphorus Level 3.7, Magnesium Level 1.8, Iron Level 35L, Total Iron Binding Capacity 508H, Percent Iron Saturation 7L, Uns aturated Iron Binding 473H, Ferritin 11, Total Bilirubin 0.5, Gamma Glutamyl Transpeptidase 155H, Aspartate Amino Transf (AST/SGOT) 97H, Alanine Aminotransferase (ALT/SGPT) 56, Alkaline Phosphatase 160H, Troponin I 0.046, C- Reactive Protein, Quantitative < 0.4, Pro-B-Type Natriuretic Peptide 223H, Total Protein 8.7H, Albumin 3.1L, Globulin 5.6, Albumin/Globulin Ratio 0.6L, Triglycerides Level 71, Cholesterol Level 132, LDL Cholesterol 64, HDL Cholesterol 58, Cholesterol/HDL Ratio 2.3L, Alpha Fetoprotein [Pending], Vitamin B12 Level 1866H, Folate 42.4, Thyroid Stimulating Hormone (TSH) 1.734, Anti- Nuclear Antibody Screen [Pending], F-Actin IgG Antibody [Pending], Hepatitis A IgM Antibody [Pending], Hepatitis B Surface Antigen [Pending], Hepatitis B Core IgM Antibody [Pending], Hepatitis C Antibody [Pending] Height (Feet): 5 Height (Inches): 4.00 Weight (Pounds): 179 General Appearance: no apparent distress Cardiovascular: tachycardia Respiratory/Chest: decreased breath sounds Abdomen: distended Gordon Pritchett MD Jul 03, 2020 13:21
--- NOTE | 2020-07-03 13:29 | Consultation ---
DATE OF CONSULTATION: 07/03/2020 INFECTIOUS DISEASES CONSULTATION CONSULTING PHYSICIAN: Keanu Goodson MD PRIMARY ATTENDING PHYSICIAN: Swathi Washington MD REASON FOR CONSULTATION: Pneumonia, pyuria, UTI. HISTORY OF PRESENT ILLNESS: This is an 80-year-old female admitted on 07/01/2020 complaining of headache, fatigue, shortness of breath. The patient has mild leukocytosis of 12.9 at the time of admission, had mild pyuria, had abnormal chest x-ray. PAST MEDICAL HISTORY: Diabetes mellitus, hypertension, obesity, has history of COVID-19 vaccination three sweeks before admission. ALLERGIES: No known drug allergies. MEDICATIONS: Getting ceftriaxone, clonidine, amlodipine. SOCIAL HISTORY: . No history of alcohol, drug abuse, or smoking. REVIEW OF SYSTEMS: Limited because of language barrier. PHYSICAL EXAMINATION: VITAL SIGNS: Temperature 98, pulse 103, blood pressure 151/63. HEAD AND NECK: No oral lesion. Has lost her teeth. HEART: Tachycardic. LUNGS: Clear. ABDOMEN: Soft. EXTREMITIES: No edema. NEUROLOGIC: Awake, responsive. LABORATORY AND DIAGNOSTIC DATA: WBC today 9.9, hemoglobin 9, hematocrit 31.2, platelets 296. Sodium 141, potassium 4.5, chloride 105, bicarb 28, BUN 12, creatinine 1.1, glucose is 148. Hemoglobin A1c 7.1. Albumin is 3.5. Cultures so far negative. COVID-19 test is negative. UA showed wbc's of 5 to 10, bacteria moderate. Chest x-ray, low lung volumes and bronchoalveolar opacities , left mid lung and base opacity could represent consolidation. CT of chest showed large left hiatal hernia, moderate left base atelectasis versus consolidation, cirrhosis, cholecystectomy. IMPRESSION: 1. Atelectasis versus pneumonia in the left lung base. 2. Pyuria and bacteriuria, may have UTI, so far urine culture is negative. 3. Diabetes mellitus. 4. Hypertensive, accelerated hypertension. 5. Cirrhosis. 6. Anemia. RECOMMENDATION: Continue with ceftriaxone. We will follow up the cultures. At the end of my exam, I thank Dr. Washington for involving me in the care of this patient. Keanu Goodson M.D. DR: Nicci JOB#: [id number] CC: CECY
[2020-07-03] MEDS ORDERED: Lisinopril 10mg tab ORAL SCH (13:30)
--- NOTE | 2020-07-03 13:43 | General Progress Note ---
Subjective ROS Limited/Unobtainable: Yes Allergies: Coded Allergies: No Known Allergies (Unverified , 02/22/15) Objective Last 24 Hour Vital Signs Date Time Temp Pulse Resp B/P (MAP) Pulse Ox O2 Delivery O2 Flow Rate FiO2 07/03/20 13:32 161/80 07/03/20 13:29 102 161/80 07/03/20 12:00 97.7 102 20 161/80 (107) 92 07/03/20 09:50 103 151/63 07/03/20 09:00 Nasal Cannula 2.0 07/03/20 08:00 98.0 103 19 151/63 (92) 96 07/03/20 08:00 67 07/03/20 04:38 83 07/03/20 04:24 98.4 94 20 150/71 (97) 95 07/03/20 00:33 98.6 94 20 155/67 (96) 97 07/03/20 00:00 95 07/02/20 21:34 95 155/66 07/02/20 21:00 Nasal Cannula 2.0 07/02/20 20:00 98.5 95 20 155/66 (95) 95 07/02/20 20:00 90 07/02/20 16:00 88 07/02/20 16:00 98.0 96 18 119/69 (86) 95 07/02/20 13:45 98 153/77 Intake and Output 07/02/20 07/03/20 19:00 07:00 Intake Total 640 ml Output Total 400 ml Balance 240 ml Intake Oral 640 ml Output Urine Total 400 ml # Voids 3 Laboratory Tests 07/03/20 08:52: White Blood Count 9.9, Red Blood Count 4.24, Hemoglobin 9.0L, Hematocrit 31.2L, Mean Corpuscular Volume 74L, Mean Corpuscular Hemoglobin 21.3L, Mean Corpuscular Hemoglobin Concent 29.0L, Red Cell Distribution Width 17.0H, Platelet Count 296, Mean Platelet Volume 6.6, Neutrophils (%) (Auto) 47.1, Lymphocytes (%) (Auto) 39.7, Monocytes (%) (Auto) 8.2, Eosinophils (%) (Auto) 3.7H, Basophils (%) (Auto) 1.4, Sodium Level 141, Potassium Level 4.5, Chloride Level 105, Carbon Dioxide Level 28, Anion Gap 8, Blood Urea Nitrogen 12, Creatinine 1.1, Estimat Glomerular Filtration Rate 47.6, Glucose Level 148H, Hemoglobin A1c 7.1H, Uric Acid 5.4, Calcium Level 9.6, Phosphorus Level 3.7, Magnesium Level 1.8, Iron Level 35L, Total Iron Binding Capacity 508H, Percent Iron Saturation 7L, Unsaturated Iron Binding 473H, Ferritin 11, Total Bilirubin 0.5, Gamma Glutamyl Transpeptidase 155H, Aspartate Amino Transf (AST/SGOT) 97H, Alanine Aminotransferase (ALT/SGPT) 56, Alkaline Phosphatase 160H, Troponin I 0.046, C- Reactive Protein, Quantitative < 0.4, Pro-B-Type Natriuretic Peptide 223H, Total Protein 8.7H, Albumin 3.1L, Globulin 5.6, Albumin/Globulin Ratio 0.6L, Triglycerides Level 71, Cholesterol Level 132, LDL Cholesterol 64, HDL Cholesterol 58, Cholesterol/HDL Ratio 2.3L, Alpha Fetoprotein [Pending], Vitamin B12 Level 1866H, Folate 42.4, Thyroid Stimulating Hormone (TSH) 1.734, Anti- Nuclear Antibody Screen [Pending], F-Actin IgG Antibody [Pending], Hepatitis A IgM Antibody [Pending], Hepatitis B Surface Antigen [Pending], Hepatitis B Core IgM Antibody [Pending], Hepatitis C Antibody [Pending] Height (Feet): 5 Height (Inches): 4.00 Weight (Pounds): 179 General Appearance: no apparent distress EENT: normal ENT inspection Neck: supple Cardiovascular: normal peripheral pulses Respiratory/Chest: decreased breath sounds Abdomen: hypoactive bowel sounds Extremities: non-tender Assessment/Plan Problem List: (1) DMII (diabetes mellitus, type 2) ICD Codes: E11.9 - Type 2 diabetes mellitus without complications SNOMED: 01894152 (2) UTI (urinary tract infection) ICD Codes: N39.0 - Urinary tract infection, site not specified SNOMED: 42808440 (3) Iron deficiency anemia ICD Codes: D50.9 - Iron deficiency anemia, unspecified SNOMED: 86908656 (4) Hiatal hernia ICD Codes: K44.9 - Diaphragmatic hernia without obstruction or gangrene SNOMED: 82415381 (5) Abdominal pain ICD Codes: R10.9 - Unspecified abdominal pain SNOMED: 58374666 Assessment/Plan: iv iron fu H&H fu stool ob EGD and colonoscopy possibly for Wed if cleared by cardiology fu hepatitis panel fu abd us Charlie Kulkarni MD Jul 03, 2020 13:43
[2020-07-03] MEDS ORDERED: Iron Sucrose 200 MG in NS 110 ML IVPB SCH (15:00)
[2020-07-03 16:00] VITALS: BP 146/63
--- NOTE | 2020-07-03 18:14 | Diagnostic Imaging Report ---
Indication: Abnormal liver function tests Technique: Cristina-scale and duplex images of the upper abdomen were obtained Comparison: none Findings: Gallbladder is absent. Sonographic Washington's sign is negative. Common bile duct measures 7.5 mm in diameter. No intrahepatic biliary ductal dilatation. Liver demonstrates coarsened echogenicity and surface nodularity Portal vein and hepatic veins are patent. Pancreas is obscured by bowel gas. Spleen is unremarkable. Left kidney measures 8.6 cm in length. Right kidney measures 8.7 cm length. Both kidneys demonstrate normal echogenicity. There is no hydronephrosis. No focal abnormality . Non-aneurysmal abdominal aorta . Impression: Heterogeneous liver with surface nodularity, likely cirrhosis Absent gallbladder. Mild ectasia of the common bile duct, likely related to age and postcholecystectomy state. Downstream obstruction on completely excludable. Consider MRCP for further evaluation if clinically indicated Nonvisualized pancreas
--- NOTE | 2020-07-03 19:20 | NUR ---
NURSE NOTES: received patient resting comfortable talking on the phone. assessment initiated. patient show no signs of distress. bed in low position. call de la rosa within reach, bed alarm on. will continue to monitor.
[2020-07-03 20:00] VITALS: BP 153/72
--- NOTE | 2020-07-03 20:17 | General Progress Note ---
Subjective ROS Limited/Unobtainable: Yes Allergies: Coded Allergies: No Known Allergies (Unverified , 02/22/15) Objective Last 24 Hour Vital Signs Date Time Temp Pulse Resp B/P (MAP) Pulse Ox O2 Delivery O2 Flow Rate FiO2 07/03/20 16:00 89 07/03/20 16:00 97.9 94 20 146/63 (90) 100 07/03/20 13:32 161/80 07/03/20 13:29 102 161/80 07/03/20 12:00 97.7 102 20 161/80 (107) 92 07/03/20 12:00 102 07/03/20 09:50 103 151/63 07/03/20 09:00 Nasal Cannula 2.0 07/03/20 08:00 98.0 103 19 151/63 (92) 96 07/03/20 08:00 98 07/03/20 04:38 83 07/03/20 04:24 98.4 94 20 150/71 (97) 95 07/03/20 00:33 98.6 94 20 155/67 (96) 97 07/03/20 00:00 95 07/02/20 21:34 95 155/66 07/02/20 21:00 Nasal Cannula 2.0 Intake and Output 07/02/20 07/03/20 19:00 07:00 Intake Total 640 ml Output Total 400 ml Balance 240 ml Intake Oral 640 ml Output Urine Total 400 ml # Voids 3 Laboratory Tests 07/03/20 08:52: White Blood Count 9.9, Red Blood Count 4.24, Hemoglobin 9.0L, Hematocrit 31.2L, Mean Corpuscular Volume 74L, Mean Corpuscular Hemoglobin 21.3L, Mean Corpuscular Hemoglobin Concent 29.0L, Red Cell Distribution Width 17.0H, Platelet Count 296, Mean Platelet Volume 6.6, Neutrophils (%) (Auto) 47.1, Lymphocytes (%) (Auto) 39.7, Monocytes (%) (Auto) 8.2, Eosinophils (%) (Auto) 3.7H, Basophils (%) (Auto) 1.4, Sodium Level 141, Potassium Level 4.5, Chloride Level 105, Carbon Dioxide Level 28, Anion Gap 8, Blood Urea Nitrogen 12, Creatinine 1.1, Estimat Glomerular Filtration Rate 47.6, Glucose Level 148H, Hemoglobin A1c 7.1H, Uric Acid 5.4, Calcium Level 9.6, Phosphorus Level 3.7, Magnesium Level 1.8, Iron Level 35L, Total Iron Binding Capacity 508H, Percent Iron Saturation 7L, Unsaturated Iron Binding 473H, Ferritin 11, Total Bilirubin 0.5, Gamma Glutamyl Transpeptidase 155H, Aspartate Amino Transf (AST/SGOT) 97H, Alanine Aminotransferase (ALT/SGPT) 56, Alkaline Phosphatase 160H, Troponin I 0.046, C- Reactive Protein, Quantitative < 0.4, Pro-B-Type Natriuretic Peptide 223H, Total Protein 8.7H, Albumin 3.1L, Globulin 5.6, Albumin/Globulin Ratio 0.6L, Triglycerides Level 71, Cholesterol Level 132, LDL Cholesterol 64, HDL Cho lesterol 58, Cholesterol/HDL Ratio 2.3L, Alpha Fetoprotein [Pending], Vitamin B12 Level 1866H, Folate 42.4, Thyroid Stimulating Hormone (TSH) 1.734, Anti- Nuclear Antibody Screen [Pending], F-Actin IgG Antibody [Pending], Hepatitis A IgM Antibody [Pending], Hepatitis B Surface Antigen [Pending], Hepatitis B Core IgM Antibody [Pending], Hepatitis C Antibody [Pending] Height (Feet): 5 Height (Inches): 4.00 Weight (Pounds): 179 Assessment/Plan Problem List: (1) Weakness ICD Codes: R53.1 - Weakness SNOMED: 48288315 (2) Hypertensive urgency ICD Codes: I16.0 - Hypertensive urgency SNOMED: 572621576 (3) UTI (urinary tract infection) ICD Codes: N39.0 - Urinary tract infection, site not specified SNOMED: 45917661 (4) DMII (diabetes mellitus, type 2) ICD Codes: E11.9 - Type 2 diabetes mellitus without complications SNOMED: 74993253 (5) Abdominal pain ICD Codes: R10.9 - Unspecified abdominal pain SNOMED: 23480047 (6) Hiatal hernia ICD Codes: K44.9 - Diaphragmatic hernia without obstruction or gangrene SNOMED: 16348504 Status: progressing Assessment/Plan: on oxygen reviewed chart and labs afebrile weak dm bp improving Swathi Washington MD Jul 03, 2020 20:17
[2020-07-03] MEDS ORDERED: Iron Sucrose 100 MG in NS 55 ML IVPB SCH (21:00)
[2020-07-03] MEDS: cefTRIAXone 1 GM in D5W 55 ML IVPB SCH (22:11)
[2020-07-04] VITALS: BP 148/66
[2020-07-04 04:00] VITALS: BP 141/62
--- NOTE | 2020-07-04 04:00 | NUR ---
NURSE NOTES: patient resting in bed comfortable with no signs of distress. call de la rosa within reach, will continue to monitor.
--- NOTE | 2020-07-04 07:04 | NUR ---
NURSE HAND-OFF REPORT: Important Events on Shift:[] Patient Status: [] Diet: [] Pending Orders: [] Pending Results/Labs:[] Pending MD notification:[] Latest Vital Signs: Temperature 97.4 , Pulse 84 , B/P 141 /62 , Respiratory Rate 20 , O2 SAT 95 , Room Air, O2 Flow Rate 2.0 . Vital Sign Comment: [] EKG Rhythm: Sinus Rhythm Rhythm change?: N MD Notified?: - MD Response: Latest Crawford Fall Score: 60 Fall Risk: High Risk Safety Measures: Call light Within Reach, Bed Alarm Zone 1, Side Rails Side Rails x2, Bed position Low and Locked. Fall Precautions: Yellow Socks Yellow Gown Door Sign Patient Fall Education Report given to [].
[2020-07-04 08:00] VITALS: BP 119/57
--- NOTE | 2020-07-04 08:15 | Cardiac Electrophysiology PN ---
Assessment/Plan Assessment/Plan 1. Shortness of breath. EKG shows sinus rhythm with nonspecific ST-T wave abnormalities. Ruled out PA protocol. EF 65% on echocardiogram. 2. Accelerated hypertension. Better with Norvasc 5 po bid and Lisinopril 10 daily On p.r.n. clonidine. 3. Shortness of breath and possible pneumonia. Further evaluation by Dr. Chaney. 4. Left base atelectasis on chest CT and possible pneumonia, Subjective Subjective BP better. No CP or SOB.On Nasal cannula Objective Last 24 Hour Vital Signs Date Time Temp Pulse Resp B/P (MAP) Pulse Ox O2 Delivery O2 Flow Rate FiO2 07/04/20 04:00 84 07/04/20 04:00 97.4 90 20 141/62 (88) 95 07/04/20 00:00 98.0 93 20 148/66 (93) 95 07/04/20 00:00 88 07/03/20 22:05 88 153/72 07/03/20 21:00 Nasal Cannula 2.0 07/03/20 20:00 82 07/03/20 20:00 97.9 88 20 153/72 (99) 97 07/03/20 16:00 89 07/03/20 16:00 97.9 94 20 146/63 (90) 100 07/03/20 13:32 161/80 07/03/20 13:29 102 161/80 07/03/20 12:00 97.7 102 20 161/80 (107) 92 07/03/20 12:00 102 07/03/20 09:50 103 151/63 07/03/20 09:00 Nasal Cannula 2.0 Intake and Output 07/03/20 07/04/20 19:00 07:00 Output Total 400 ml Balance -400 ml Output Urine Total 400 ml # Voids 3 # Bowel Movements 1 Laboratory Tests Test 07/03/20 08:52 White Blood Count 9.9 K/UL (4.8-10.8) Red Blood Count 4.24 M/UL (4.20-5.40) Hemoglobin 9.0 G/DL (12.0-16.0) L Hematocrit 31.2 % (37.0-47.0) L Mean Corpuscular Volume 74 FL (80-99) L Mean Corpuscular Hemoglobin 21.3 PG (27.0-31.0) L Mean Corpuscular Hemoglobin Concent 29.0 G/DL (32.0-36.0) L Red Cell Distribution Width 17.0 % (11.6-14.8) H Platelet Count 296 K/UL (150-450) Mean Platelet Volume 6.6 FL (6.5-10.1) Neutrophils (%) (Auto) 47.1 % (45.0-75.0) Lymphocytes (%) (Auto) 39.7 % (20.0-45.0) Monocytes (%) (Auto) 8.2 % (1.0-10.0) Eosinophils (%) (Auto) 3.7 % (0.0-3.0) H Basophils (%) (Auto) 1.4 % (0.0-2.0) Sodium Level 141 MMOL/L (136-145) Potassium Level 4.5 MMOL/L (3.5-5.1) Chloride Level 105 MMOL/L (98-107) Carbon Dioxide Level 28 MMOL/L (21-32) Anion Gap 8 mmol/L (5-15) Blood Urea Nitrogen 12 mg/dL (7-18) Creatinine 1.1 MG/DL (0.55-1.30) Estimat Glomerular Filtration Rate 47.6 mL/min (>60) Glucose Level 148 MG/DL (74-106) H Hemoglobin A1c 7.1 % (4.3-6.0) H Uric Acid 5.4 MG/DL (2.6-7.2) Calcium Level 9.6 MG/DL (8.5-10.1) Phosphorus Level 3.7 MG/DL (2.5-4.9) Magnesium Level 1.8 MG/DL (1.8-2.4) Iron Level 35 ug/dL (50-175) L Total Iron Binding Capacity 508 ug/dL (250-450) H Percent Iron Saturation 7 % (15-50) L Unsaturated Iron Binding 473 ug/dL (112-346) H Ferritin 11 NG/ML (8-388) Total Bilirubin 0.5 MG/DL (0.2-1.0) Gamma Glutamyl Transpeptidase 155 U/L (5-85) H Aspartate Amino Transf (AST/SGOT) 97 U/L (15-37) H Alanine Aminotransferase (ALT/SGPT) 56 U/L (12-78) Alkaline Phosphatase 160 U/L (46-116) H Troponin I 0.046 ng/mL (0.000-0.056) C-Reactive Protein, Quantitative < 0.4 mg/dL (0.00-0.90) Pro-B-Type Natriuretic Peptide 223 pg/mL (0-125) H Total Protein 8.7 G/DL (6.4-8.2) H Albumin 3.1 G/DL (3.4-5.0) L Globulin 5.6 g/dL Albumin/Globulin Ratio 0.6 (1.0-2.7) L Triglycerides Level 71 MG/DL (30-150) Cholesterol Level 132 MG/DL (< 200) LDL Cholesterol 64 mg/dL (<100) HDL Cholesterol 58 MG/DL (40-60) Cholesterol/HDL Ratio 2.3 (3.3-4.4) L Alpha Fetoprotein Pending Vitamin B12 Level 1866 PG/ML (193-986) H Folate 42.4 NG/ML (8.6-58.9) Thyroid Stimulating Hormone (TSH) 1.734 uiU/mL (0.358-3.740) Anti-Nuclear Antibody Screen Pending F-Actin IgG Antibody Pending Hepatitis A IgM Antibody Pending Hepatitis B Surface Antigen Pending Hepatitis B Core IgM Antibody Pending Hepatitis C Antibody Pending Microbiology Date/Time Source Procedure Growth Status 07/01/20 21:30 Urine,Clean Catch Urine Culture - Preliminary NO GROWTH AFTER 24 HOURS Resulted 07/01/20 21:30 Blood Blood Culture - Preliminary NO GROWTH AFTER 24 HOURS Resulted 07/01/20 21:30 Blood Blood Culture - Preliminary NO GROWTH AFTER 24 HOURS Resulted 07/01/20 18:53 Nasopharynx SARS-CoV-2 Antigen (Rapid)(PHUONG) - Final Complete Objective HEAD AND NECK: No JVD. LUNGS: Clear. CARDIOVASCULAR: Regular S1 and S2 with no gallop or murmur. ABDOMEN: Soft. EXTREMITIES: 1+ pitting edema. Jude Stone MD Jul 04, 2020 08:15
[2020-07-04] MEDS: Lisinopril 10mg tab ORAL SCH (09:20)
[2020-07-04] MEDS: Docusate 100mg cap ORAL SCH ×3 (09:20→18:11)
--- NOTE | 2020-07-04 10:51 | Pulmonology Progress Note ---
Subjective ROS Limited/Unobtainable: Yes Interval Events: none major reported per nursing Constitutional: Reports: no symptoms HEENT: Repors: no symptoms Respiratory: Reports: shortness of breath Cardiovascular: Reports: no symptoms Gastrointestinal/Abdominal: Reports: no symptoms Allergies: Coded Allergies: No Known Allergies (Unverified , 02/22/15) Objective Last 24 Hour Vital Signs Date Time Temp Pulse Resp B/P (MAP) Pulse Ox O2 Delivery O2 Flow Rate FiO2 07/04/20 09:20 119/57 07/04/20 09:20 90 119/57 07/04/20 08:00 97.6 95 20 119/57 (77) 95 07/04/20 08:00 90 07/04/20 04:00 84 07/04/20 04:00 97.4 90 20 141/62 (88) 95 07/04/20 00:00 98.0 93 20 148/66 (93) 95 07/04/20 00:00 88 07/03/20 22:05 88 153/72 07/03/20 21:00 Nasal Cannula 2.0 07/03/20 20:00 82 07/03/20 20:00 97.9 88 20 153/72 (99) 97 07/03/20 16:00 89 07/03/20 16:00 97.9 94 20 146/63 (90) 100 07/03/20 13:32 161/80 07/03/20 13:29 102 161/80 07/03/20 12:00 97.7 102 20 161/80 (107) 92 07/03/20 12:00 102 Intake and Output 07/03/20 07/04/20 19:00 07:00 Output Total 400 ml Balance -400 ml Output Urine Total 400 ml # Voids 3 # Bowel Movements 1 General Appearance: no acute distress HEENT: atraumatic Respiratory: lungs clear Cardiovascular: normal rate, regular rhythm Abdomen: tender - RUQ Microbiology Date/Time Source Procedure Growth Status 07/01/20 21:30 Urine,Clean Catch Urine Culture - Final NO GROWTH AFTER 48 HOURS Complete 07/01/20 21:30 Blood Blood Culture - Preliminary NO GROWTH AFTER 48 HOURS Resulted 07/01/20 21:30 Blood Blood Culture - Preliminary NO GROWTH AFTER 48 HOURS Resulted 07/01/20 18:53 Nasopharynx SARS-CoV-2 Antigen (Rapid)(PHUONG) - Final Complete Current Medications Medications (Trade) Dose Ordered Sig/Yasmany Route PRN Reason Start Time Stop Time Status Last Admin Dose Admin Amlodipine Besylate (Norvasc) 5 mg Q12HR ORAL 07/03/20 21:00 08/02/20 20:59 07/04/20 09:20 Ceftriaxone Sodium 1 gm/ Dextrose 55 ml @ 110 mls/hr Q24H IVPB 07/02/20 21:00 07/09/20 20:59 07/03/20 22:11 Clonidine HCl (Catapres Tab) 0.1 mg Q6H PRN ORAL For High Blood Pressure 07/02/20 02:15 09/30/20 02:14 Docusate Sodium (Colace) 100 mg THREE TIMES A DAY ORAL 07/02/20 18:00 08/01/20 17:59 07/04/20 09:20 Iron Sucrose 100 mg/Sodium Chloride 60 ml @ 240 mls/hr BEDTIME IVPB 07/04/20 21:00 07/08/20 21:14 Lisinopril (ZestriL) 10 mg DAILY ORAL 07/04/20 09:00 08/03/20 08:59 07/04/20 09:20 Pantoprazole (Protonix) 40 mg EVERY 12 HOURS ORAL 07/02/20 21:00 08/01/20 20:59 07/04/20 09:19 Assessment/Plan Assessment/Plan 1. UTI - on Abx - f/u UCx negative (07/01) 2. Acute respiratory distress on admission -Continue supplemental oxygen; currently saturating well on 2L NC - No indication for steroid at this time - Cardio w/u with serial trops neg and 2D Echo 55-60% 3. Hypertensive urgency - now BP better controlled 4. COVID-19 negative (07/01) 5. DVT ppx - on SCD 6. Left base atelectasis on chest CT - Normoxemia on low flow oxygen 7. ? pneumonia; afebrile, no leukocytosis - recommend Abx for pneumonia coverage 8. ? Liver cirrhosis - GI following - Abd US, hep panel Possible EGD/Col on Fri if cleared by cardio The care for this patient was discussed with my supervising physician. Time spent for this case was approximately 31 minutes. Jovan Santos Jul 04, 2020 10:51
--- NOTE | 2020-07-04 11:29 | General Progress Note ---
Subjective ROS Limited/Unobtainable: Yes Allergies: Coded Allergies: No Known Allergies (Unverified , 02/22/15) Objective Last 24 Hour Vital Signs Date Time Temp Pulse Resp B/P (MAP) Pulse Ox O2 Delivery O2 Flow Rate FiO2 07/04/20 09:20 119/57 07/04/20 09:20 90 119/57 07/04/20 08:00 97.6 95 20 119/57 (77) 95 07/04/20 08:00 90 07/04/20 04:00 84 07/04/20 04:00 97.4 90 20 141/62 (88) 95 07/04/20 00:00 98.0 93 20 148/66 (93) 95 07/04/20 00:00 88 07/03/20 22:05 88 153/72 07/03/20 21:00 Nasal Cannula 2.0 07/03/20 20:00 82 07/03/20 20:00 97.9 88 20 153/72 (99) 97 07/03/20 16:00 89 07/03/20 16:00 97.9 94 20 146/63 (90) 100 07/03/20 13:32 161/80 07/03/20 13:29 102 161/80 07/03/20 12:00 97.7 102 20 161/80 (107) 92 07/03/20 12:00 102 Intake and Output 07/03/20 07/04/20 19:00 07:00 Output Total 400 ml Balance -400 ml Output Urine Total 400 ml # Voids 3 # Bowel Movements 1 Height (Feet): 5 Height (Inches): 4.00 Weight (Pounds): 179 Assessment/Plan Problem List: (1) Weakness ICD Codes: R53.1 - Weakness SNOMED: 26211623 (2) Hypertensive urgency ICD Codes: I16.0 - Hypertensive urgency SNOMED: 738695238 (3) UTI (urinary tract infection) ICD Codes: N39.0 - Urinary tract infection, site not specified SNOMED: 45267234 (4) DMII (diabetes mellitus, type 2) ICD Codes: E11.9 - Type 2 diabetes mellitus without complications SNOMED: 07226655 (5) Abdominal pain ICD Codes: R10.9 - Unspecified abdominal pain SNOMED: 38778713 (6) Hiatal hernia ICD Codes: K44.9 - Diaphragmatic hernia without obstruction or gangrene SNOMED: 85412323 Status: progressing Assessment/Plan: r/o pna weak abx requires oxygen poor po intake Swathi Washington MD Jul 04, 2020 11:29
[2020-07-04 12:00] VITALS: BP 143/67
--- NOTE | 2020-07-04 12:09 | Infectious Diseases Prog Note ---
Assessment/Plan Assessment/Plan IMPRESSION: 1. Atelectasis versus pneumonia in the left lung base. 2. Pyuria and bacteriuria, may have UTI, 3. Diabetes mellitus. 4. Hypertensive, accelerated 5. Cirrhosis. 6. Anemia. 7. s/p cholecystectomy RECOMMENDATION: Continue with ceftriaxone. We will follow up the cultures. Subjective ROS Limited/Unobtainable: Yes Constitutional: Reports: anorexia; Denies: fever Allergies: Coded Allergies: No Known Allergies (Unverified , 02/22/15) Objective Last 24 Hour Vital Signs Date Time Temp Pulse Resp B/P (MAP) Pulse Ox O2 Delivery O2 Flow Rate FiO2 07/04/20 09:20 119/57 07/04/20 09:20 90 119/57 07/04/20 09:00 Nasal Cannula 2.0 07/04/20 08:00 97.6 95 20 119/57 (77) 95 07/04/20 08:00 90 07/04/20 04:00 84 07/04/20 04:00 97.4 90 20 141/62 (88) 95 07/04/20 00:00 98.0 93 20 148/66 (93) 95 07/04/20 00:00 88 07/03/20 22:05 88 153/72 07/03/20 21:00 Nasal Cannula 2.0 07/03/20 20:00 82 07/03/20 20:00 97.9 88 20 153/72 (99) 97 07/03/20 16:00 89 07/03/20 16:00 97.9 94 20 146/63 (90) 100 07/03/20 13:32 161/80 07/03/20 13:29 102 161/80 Height (Feet): 5 Height (Inches): 4.00 Weight (Pounds): 179 HEENT: mucous membranes moist Respiratory/Chest: lungs clear Cardiovascular: normal rate Abdomen: soft, non tender Extremities: other - SCD of legs Neurologic/Psychiatric: alert, responsive Microbiology Date/Time Source Procedure Growth Status 07/01/20 21:30 Urine,Clean Catch Urine Culture - Final NO GROWTH AFTER 48 HOURS Complete 07/01/20 21:30 Blood Blood Culture - Preliminary NO GROWTH AFTER 48 HOURS Resulted 07/01/20 21:30 Blood Blood Culture - Preliminary NO GROWTH AFTER 48 HOURS Resulted 07/01/20 18:53 Nasopharynx SARS-CoV-2 Antigen (Rapid)(PHUONG) - Final Complete Current Medications Medications (Trade) Dose Ordered Sig/Yasmany Route PRN Reason Start Time Stop Time Status Last Admin Dose Admin Amlodipine Besylate (Norvasc) 5 mg Q12HR ORAL 07/03/20 21:00 08/02/20 20:59 07/04/20 09:20 Ceftriaxone Sodium 1 gm/ Dextrose 55 ml @ 110 mls/hr Q24H IVPB 07/02/20 21:00 07/09/20 20:59 07/03/20 22:11 Clonidine HCl (Catapres Tab) 0.1 mg Q6H PRN ORAL For High Blood Pressure 07/02/20 02:15 09/30/20 02:14 Docusate Sodium (Colace) 100 mg THREE TIMES A DAY ORAL 07/02/20 18:00 08/01/20 17:59 07/04/20 09:20 Iron Sucrose 100 mg/Sodium Chloride 60 ml @ 240 mls/hr BEDTIME IVPB 07/04/20 21:00 07/08/20 21:14 Lisinopril (ZestriL) 10 mg DAILY ORAL 07/04/20 09:00 08/03/20 08:59 07/04/20 09:20 Pantoprazole (Protonix) 40 mg EVERY 12 HOURS ORAL 07/02/20 21:00 08/01/20 20:59 07/04/20 09:19 Keanu Goodson MD Jul 04, 2020 12:09
--- NOTE | 2020-07-04 12:48 | General Progress Note ---
Subjective ROS Limited/Unobtainable: Yes Allergies: Coded Allergies: No Known Allergies (Unverified , 02/22/15) Objective Last 24 Hour Vital Signs Date Time Temp Pulse Resp B/P (MAP) Pulse Ox O2 Delivery O2 Flow Rate FiO2 07/04/20 09:20 119/57 07/04/20 09:20 90 119/57 07/04/20 09:00 Nasal Cannula 2.0 07/04/20 08:00 97.6 95 20 119/57 (77) 95 07/04/20 08:00 90 07/04/20 04:00 84 07/04/20 04:00 97.4 90 20 141/62 (88) 95 07/04/20 00:00 98.0 93 20 148/66 (93) 95 07/04/20 00:00 88 07/03/20 22:05 88 153/72 07/03/20 21:00 Nasal Cannula 2.0 07/03/20 20:00 82 07/03/20 20:00 97.9 88 20 153/72 (99) 97 07/03/20 16:00 89 07/03/20 16:00 97.9 94 20 146/63 (90) 100 07/03/20 13:32 161/80 07/03/20 13:29 102 161/80 Intake and Output 07/03/20 07/04/20 19:00 07:00 Output Total 400 ml Balance -400 ml Output Urine Total 400 ml # Voids 3 # Bowel Movements 1 Height (Feet): 5 Height (Inches): 4.00 Weight (Pounds): 179 General Appearance: no apparent distress EENT: normal ENT inspection Neck: supple Cardiovascular: normal rate Respiratory/Chest: decreased breath sounds Abdomen: normal bowel sounds, non tender, soft Extremities: non-tender Assessment/Plan Problem List: (1) DMII (diabetes mellitus, type 2) ICD Codes: E11.9 - Type 2 diabetes mellitus without complications SNOMED: 03191068 (2) UTI (urinary tract infection) ICD Codes: N39.0 - Urinary tract infection, site not specified SNOMED: 49840117 (3) Iron deficiency anemia ICD Codes: D50.9 - Iron deficiency anemia, unspecified SNOMED: 23029449 (4) Hiatal hernia ICD Codes: K44.9 - Diaphragmatic hernia without obstruction or gangrene SNOMED: 85170618 (5) Abdominal pain ICD Codes: R10.9 - Unspecified abdominal pain SNOMED: 19340155 Status: progressing Assessment/Plan: iv iron fu H&H fu stool ob patient refusing EGD and colonoscopy fu hepatitis panel fu abd us>>>> cirrhosis Charlie Kulkarni MD Jul 04, 2020 12:48
--- NOTE | 2020-07-04 14:30 | Nephrology Progress Note ---
Assessment/Plan Problem List: (1) Iron deficiency anemia (2) Hypertensive urgency (3) UTI (urinary tract infection) (4) DMII (diabetes mellitus, type 2) Assessment: Hemoglobin A1c 7.1 Assessment Hypertensive urgency Anemia, low MCV Weakness Hiatus hernia UTI DM Plan July 04: No blood drawn today. Blood pressure better controlled. Will check lab tomorrow. Continue to rest. July 03: Blood pressure needs better control, hence lisinopril added to Norvasc. IV iron initiated for low iron anemia. Continue per consultants. Stable from renal standpoint of view. Antibiotic for UTI in process. Subjective ROS Limited/Unobtainable: No Constitutional: Reports: malaise Objective Objective Last 24 Hour Vital Signs Date Time Temp Pulse Resp B/P (MAP) Pulse Ox O2 Delivery O2 Flow Rate FiO2 07/04/20 12:00 97.2 92 18 143/67 (92) 95 07/04/20 12:00 87 07/04/20 09:20 119/57 07/04/20 09:20 90 119/57 07/04/20 09:00 Nasal Cannula 2.0 07/04/20 08:00 97.6 95 20 119/57 (77) 95 07/04/20 08:00 90 07/04/20 04:00 84 07/04/20 04:00 97.4 90 20 141/62 (88) 95 07/04/20 00:00 98.0 93 20 148/66 (93) 95 07/04/20 00:00 88 07/03/20 22:05 88 153/72 07/03/20 21:00 Nasal Cannula 2.0 07/03/20 20:00 82 07/03/20 20:00 97.9 88 20 153/72 (99) 97 07/03/20 16:00 89 07/03/20 16:00 97.9 94 20 146/63 (90) 100 Intake and Output 07/03/20 07/04/20 19:00 07:00 Output Total 400 ml Balance -400 ml Output Urine Total 400 ml # Voids 3 # Bowel Movements 1 No CHEM panel drawn today Height (Feet): 5 Height (Inches): 4.00 Weight (Pounds): 179 General Appearance: no apparent distress Cardiovascular: tachycardia Respiratory/Chest: decreased breath sounds Abdomen: distended Gordon Pritchett MD Jul 04, 2020 14:30
[2020-07-04 16:00] VITALS: BP 143/61
--- NOTE | 2020-07-04 19:54 | NUR ---
NURSE NOTES: received patient alert resting comfortable in bed with no signs of distress. bed in low position. bed alarm on. call [place] within reach, will continue to monitor.
[2020-07-04 20:00] VITALS: BP 162/67
[2020-07-04] MEDS: cefTRIAXone 1 GM in D5W 55 ML IVPB SCH (21:52)
[2020-07-04] MEDS: Iron Sucrose 100 MG in NS 55 ML IVPB SCH (21:52)
[2020-07-05] VITALS: BP 149/64
[2020-07-05 04:00] VITALS: BP 154/73
--- NOTE | 2020-07-05 04:00 | NUR ---
NURSE NOTES: patient resting comfortable in bed with no signs of distress. call [place] within reach. bed alarm. will continue to monitor.
[2020-07-05 06:48] LABS: BASOPHILS % (AUTO) 1.3 % (0.0-2.0); EOSINOPHILS % (AUTO) 3.6 % (0.0-3.0); HEMATOCRIT 27.2 % (37.0-47.0); LYMPHOCYTES % (AUTO) 33.9 % (20.0-45.0); MEAN CORPUSCULAR VOLUME 73 FL (80-99); NEUTROPHILS % (AUTO) 50.2 % (45.0-75.0); PLATELET COUNT 254 K/UL (150-450); RED BLOOD COUNT 3.73 M/UL (4.20-5.40); RED CELL DISTRIBUTION WIDTH 16.9 % (11.6-14.8)
[2020-07-05 07:01] LABS: ALANINE AMINOTRANSFERASE 51 U/L (12-78); ALBUMIN 2.5 G/DL (3.4-5.0); ALBUMIN/GLOBULIN RATIO 0.5 (1.0-2.7); ALKALINE PHOSPHATASE 128 U/L (46-116); ANION GAP 4 mmol/L (5-15); ASPARTATE AMINO TRANSFERASE 89 U/L (15-37); BILIRUBIN,TOTAL 0.3 MG/DL (0.2-1.0); BLOOD UREA NITROGEN 9 mg/dL (7-18); CALCIUM 8.9 MG/DL (8.5-10.1); CARBON DIOXIDE 30 MMOL/L (21-32); CHLORIDE 106 MMOL/L (98-107); CREATININE 0.9 MG/DL (0.55-1.30); POTASSIUM 3.9 MMOL/L (3.5-5.1); SODIUM 140 MMOL/L (136-145)
--- NOTE | 2020-07-05 07:16 | NUR ---
NURSE HAND-OFF REPORT: Important Events on Shift:[] Patient Status: [] Diet: [] Pending Orders: [] Pending Results/Labs:[] Pending MD notification:[] Latest Vital Signs: Temperature 98.0 , Pulse 88 , B/P 154 /73 , Respiratory Rate 18 , O2 SAT 92 , Room Air, O2 Flow Rate 2.0 . Vital Sign Comment: [] EKG Rhythm: Sinus Rhythm Rhythm change?: N MD Notified?: - MD Response: Latest Crawford Fall Score: 60 Fall Risk: High Risk Safety Measures: Call light Within Reach, Bed Alarm Zone 1, Side Rails Side Rails x2, Bed position Low and Locked. Fall Precautions: Yellow Socks Yellow Gown Door Sign Patient Fall Education Report given to [].
[2020-07-05 08:00] VITALS: BP 147/76
--- NOTE | 2020-07-05 09:33 | General Progress Note ---
Subjective ROS Limited/Unobtainable: Yes Allergies: Coded Allergies: No Known Allergies (Unverified , 02/22/15) Objective Last 24 Hour Vital Signs Date Time Temp Pulse Resp B/P (MAP) Pulse Ox O2 Delivery O2 Flow Rate FiO2 07/05/20 08:00 96.9 59 20 147/76 (99) 91 07/05/20 08:00 96 07/05/20 04:00 88 07/05/20 04:00 98.0 88 18 154/73 (100) 92 07/05/20 00:00 98.1 93 20 149/64 (92) 94 07/05/20 00:00 89 07/04/20 21:50 92 162/67 07/04/20 21:00 Nasal Cannula 2.0 07/04/20 20:00 97.0 95 20 162/67 (98) 92 07/04/20 20:00 83 07/04/20 16:00 80 07/04/20 16:00 97.4 85 20 143/61 (88) 100 07/04/20 12:00 97.2 92 18 143/67 (92) 95 07/04/20 12:00 87 Intake and Output 07/04/20 07/05/20 19:00 07:00 Intake Total 240 ml 120 ml Output Total 450 ml Balance -210 ml 120 ml Intake Oral 240 ml 120 ml Output Urine Total 450 ml # Voids 3 Laboratory Tests 07/05/20 05:50: White Blood Count 8.0, Red Blood Count 3.73L, Hemoglobin 8.0L, Hematocrit 27.2L, Mean Corpuscular Volume 73L, Mean Corpuscular Hemoglobin 21.3L, Mean Corpuscular Hemoglobin Concent 29.3L, Red Cell Distribution Width 16.9H, Platelet Count 254, Mean Platelet Volume 6.6, Neutrophils (%) (Auto) 50.2, Lymphocytes (%) (Auto) 33.9, Monocytes (%) (Auto) 11.0H, Eosinophils (%) (Auto) 3.6H, Basophils (%) (Auto) 1.3, Sodium Level 140, Potassium Level 3.9, Chloride Level 106, Carbon Dioxide Level 30, Anion Gap 4L, Blood Urea Nitrogen 9, Creatinine 0.9, Estimat Glomerular Filtration Rate > 60, Glucose Level 82, Calcium Level 8.9, Total Bilirubin 0.3, Aspartate Amino Transf (AST/SGOT) 89H, Alanine Aminotransferase (ALT/SGPT) 51, Alkaline Phosphatase 128H, Total Protein 7.1, Albumin 2.5L, Globulin 4.6, Albumin/Globulin Ratio 0.5L Height (Feet): 5 Height (Inches): 4.00 Weight (Pounds): 179 General Appearance: no apparent distress EENT: normal ENT inspection Neck: supple Cardiovascular: normal rate Respiratory/Chest: decreased breath sounds Abdomen: hypoactive bowel sounds Extremities: non-tender Assessment/Plan Problem List: (1) DMII (diabetes mellitus, type 2) ICD Codes: E11.9 - Type 2 diabetes mellitus without complications SNOMED: 65898168 (2) UTI (urinary tract infection) ICD Codes: N39.0 - Urinary tract infection, site not specified SNOMED: 80805648 (3) Iron deficiency anemia ICD Codes: D50.9 - Iron deficiency anemia, unspecified SNOMED: 80633289 (4) Hiatal hernia ICD Codes: K44.9 - Diaphragmatic hernia without obstruction or gangrene SNOMED: 86300166 (5) Abdominal pain ICD Codes: R10.9 - Unspecified abdominal pain SNOMED: 48250397 Status: progressing Assessment/Plan: iv iron fu H&H fu stool ob patient refusing EGD and colonoscopy fu hepatitis panel fu abd us>>>> cirrhosis Charlie Kulkarni MD Jul 05, 2020 09:33
[2020-07-05] MEDS: Lisinopril 10mg tab ORAL SCH (09:43)
[2020-07-05] MEDS: Docusate 100mg cap ORAL SCH ×3 (09:43→17:35)
[2020-07-05] MEDS ORDERED: Lactulose 20gm/30ml UDC ORAL SCH (09:45)
--- NOTE | 2020-07-05 09:54 | Pulmonology Progress Note ---
Subjective ROS Limited/Unobtainable: Yes Interval Events: desaturated to 88% on room air yesterday; back on 2L NC Constitutional: Reports: anorexia; Denies: fever HEENT: Repors: no symptoms Respiratory: Reports: shortness of breath Cardiovascular: Reports: no symptoms Gastrointestinal/Abdominal: Reports: no symptoms Allergies: Coded Allergies: No Known Allergies (Unverified , 02/22/15) Objective Last 24 Hour Vital Signs Date Time Temp Pulse Resp B/P (MAP) Pulse Ox O2 Delivery O2 Flow Rate FiO2 07/05/20 09:43 147/76 07/05/20 09:43 96 147/76 07/05/20 08:00 96.9 59 20 147/76 (99) 91 07/05/20 08:00 96 07/05/20 04:00 88 07/05/20 04:00 98.0 88 18 154/73 (100) 92 07/05/20 00:00 98.1 93 20 149/64 (92) 94 07/05/20 00:00 89 07/04/20 21:50 92 162/67 07/04/20 21:00 Nasal Cannula 2.0 07/04/20 20:00 97.0 95 20 162/67 (98) 92 07/04/20 20:00 83 07/04/20 16:00 80 07/04/20 16:00 97.4 85 20 143/61 (88) 100 07/04/20 12:00 97.2 92 18 143/67 (92) 95 07/04/20 12:00 87 Intake and Output 07/04/20 07/05/20 19:00 07:00 Intake Total 240 ml 120 ml Output Total 450 ml Balance -210 ml 120 ml Intake Oral 240 ml 120 ml Output Urine Total 450 ml # Voids 3 General Appearance: no acute distress HEENT: atraumatic Respiratory: lungs clear Cardiovascular: normal rate, regular rhythm Abdomen: tender - RUQ Laboratory Tests 07/05/20 05:50: White Blood Count 8.0, Red Blood Count 3.73L, Hemoglobin 8.0L, Hematocrit 27.2L, Mean Corpuscular Volume 73L, Mean Corpuscular Hemoglobin 21.3L, Mean Corpuscular Hemoglobin Concent 29.3L, Red Cell Distribution Width 16.9H, Platelet Count 254, Mean Platelet Volume 6.6, Neutrophils (%) (Auto) 50.2, Lymphocytes (%) (Auto) 33.9, Monocytes (%) (Auto) 11.0H, Eosinophils (%) (Auto) 3.6H, Basophils (%) (Auto) 1.3, Sodium Level 140, Potassium Level 3.9, Chloride Level 106, Carbon Dioxide Level 30, Anion Gap 4L, Blood Urea Nitrogen 9, Creatinine 0.9, Estimat Glomerular Filtration Rate > 60, Glucose Level 82, Calcium Level 8.9, Total Bilirubin 0.3, Aspartate Amino Transf (AST/SGOT) 89H, Alanine Aminotransferase (ALT/SGPT) 51, Alkaline Phosphatase 128H, Total Protein 7.1, Albumin 2.5L, Globulin 4.6, Albumin/Globulin Ratio 0.5L Current Medications Medications (Trade) Dose Ordered Sig/Yasmany Route PRN Reason Start Time Stop Time Status Last Admin Dose Admin Amlodipine Besylate (Norvasc) 5 mg Q12HR ORAL 07/03/20 21:00 08/02/20 20:59 07/05/20 09:43 Ceftriaxone Sodium 1 gm/ Dextrose 55 ml @ 110 mls/hr Q24H IVPB 07/02/20 21:00 07/09/20 20:59 07/04/20 21:52 Clonidine HCl (Catapres Tab) 0.1 mg Q6H PRN ORAL For High Blood Pressure 07/02/20 02:15 09/30/20 02:14 Docusate Sodium (Colace) 100 mg THREE TIMES A DAY ORAL 07/02/20 18:00 08/01/20 17:59 07/05/20 09:43 Iron Sucrose 100 mg/Sodium Chloride 60 ml @ 240 mls/hr BEDTIME IVPB 07/04/20 21:00 07/08/20 21:14 07/04/20 21:52 Lactulose (Cephulac) 30 gm ONCE ORAL 07/05/20 09:45 07/05/20 11:00 07/05/20 09:44 Lisinopril (ZestriL) 10 mg DAILY ORAL 07/04/20 09:00 08/03/20 08:59 07/05/20 09:43 Pantoprazole (Protonix) 40 mg EVERY 12 HOURS ORAL 07/02/20 21:00 08/01/20 20:59 07/05/20 09:43 Polyethylene Glycol (Miralax) 17 gm BEDTIME ORAL 07/05/20 21:00 08/04/20 20:59 Assessment/Plan Assessment/Plan 1. UTI - on Abx - f/u UCx negative (07/01) 2. Acute respiratory distress on admission -Continue supplemental oxygen; currently saturating well on 2L NC - No indication for steroid at this time - Serial trops neg and 2D Echo EF 55-60% 3. Hypertensive urgency - now BP better controlled 4. COVID-19 negative (07/01) 5. DVT ppx - on SCD 6. Left base atelectasis on chest CT - Normoxemia on low flow oxygen 7. ? pneumonia; afebrile, no leukocytosis - recommend Abx for pneumonia coverage 8. ? Liver cirrhosis - GI following - Abd US, hep panel Possible EGD/Col on Fri if cleared by cardio -> refusing EGD/[place] per GI The care for this patient was discussed with my supervising physician. Time spent for this case was approximately 31 minutes. Jovan Santos Jul 05, 2020 09:54
--- NOTE | 2020-07-05 10:35 | Nephrology Progress Note ---
Assessment/Plan Problem List: (1) Iron deficiency anemia (2) Hypertensive urgency (3) UTI (urinary tract infection) (4) DMII (diabetes mellitus, type 2) Assessment: Hemoglobin A1c 7.1 Assessment Hypertensive urgency Anemia, low MCV Weakness Hiatus hernia UTI DM Plan July 05: Labs reviewed. Blood pressure in check. Continue per consultants. Medication list reviewed. July 04: No blood drawn today. Blood pressure better controlled. Will check lab tomorrow. Continue to rest. July 03: Blood pressure needs better control, hence lisinopril added to Norvasc. IV iron initiated for low iron anemia. Continue per consultants. Stable from renal standpoint of view. Antibiotic for UTI in process. Subjective ROS Limited/Unobtainable: No Constitutional: Reports: malaise Objective Objective Last 24 Hour Vital Signs Date Time Temp Pulse Resp B/P (MAP) Pulse Ox O2 Delivery O2 Flow Rate FiO2 07/05/20 09:43 147/76 07/05/20 09:43 96 147/76 07/05/20 08:00 96.9 59 20 147/76 (99) 91 07/05/20 08:00 96 07/05/20 04:00 88 07/05/20 04:00 98.0 88 18 154/73 (100) 92 07/05/20 00:00 98.1 93 20 149/64 (92) 94 07/05/20 00:00 89 07/04/20 21:50 92 162/67 07/04/20 21:00 Nasal Cannula 2.0 07/04/20 20:00 97.0 95 20 162/67 (98) 92 07/04/20 20:00 83 07/04/20 16:00 80 07/04/20 16:00 97.4 85 20 143/61 (88) 100 07/04/20 12:00 97.2 92 18 143/67 (92) 95 07/04/20 12:00 87 Intake and Output 07/04/20 07/05/20 19:00 07:00 Intake Total 240 ml 120 ml Output Total 450 ml Balance -210 ml 120 ml Intake Oral 240 ml 120 ml Output Urine Total 450 ml # Voids 3 Current Medications Medications (Trade) Dose Ordered Sig/Yasmany Route PRN Reason Start Time Stop Time Status Last Admin Dose Admin Amlodipine Besylate (Norvasc) 5 mg Q12HR ORAL 07/03/20 21:00 08/02/20 20:59 07/05/20 09:43 Ceftriaxone Sodium 1 gm/ Dextrose 55 ml @ 110 mls/hr Q24H IVPB 07/02/20 21:00 07/09/20 20:59 07/04/20 21:52 Clonidine HCl (Catapres Tab) 0.1 mg Q6H PRN ORAL For High Blood Pressure 07/02/20 02:15 09/30/20 02:14 Docusate Sodium (Colace) 100 mg THREE TIMES A DAY ORAL 07/02/20 18:00 08/01/20 17:59 07/05/20 09:43 Iron Sucrose 100 mg/Sodium Chloride 60 ml @ 240 mls/hr BEDTIME IVPB 07/04/20 21:00 07/08/20 21:14 07/04/20 21:52 Lactulose (Cephulac) 30 gm ONCE ORAL 07/05/20 09:45 07/05/20 11:00 07/05/20 09:44 Lisinopril (ZestriL) 10 mg DAILY ORAL 07/04/20 09:00 08/03/20 08:59 07/05/20 09:43 Pantoprazole (Protonix) 40 mg EVERY 12 HOURS ORAL 07/02/20 21:00 08/01/20 20:59 07/05/20 09:43 Polyethylene Glycol (Miralax) 17 gm BEDTIME ORAL 07/05/20 21:00 08/04/20 20:59 Laboratory Tests 07/05/20 05:50: White Blood Count 8.0, Red Blood Count 3.73L, Hemoglobin 8.0L, Hematocrit 27.2L, Mean Corpuscular Volume 73L, Mean Corpuscular Hemoglobin 21.3L, Mean Corpuscular Hemoglobin Concent 29.3L, Red Cell Distribution Width 16.9H, Platelet Count 254, Mean Platelet Volume 6.6, Neutrophils (%) (Auto) 50.2, Lymphocytes (%) (Auto) 33.9, Monocytes (%) (Auto) 11.0H, Eosinophils (%) (Auto) 3.6H, Basophils (%) (Auto) 1.3, Sodium Level 140, Potassium Level 3.9, Chloride Level 106, Carbon Dioxide Level 30, Anion Gap 4L, Blood Urea Nitrogen 9, Creatinine 0.9, Estimat Glomerular Filtration Rate > 60, Glucose Level 82, Calcium Level 8.9, Total Bilirubin 0.3, Aspartate Amino Transf (AST/SGOT) 89H, Alanine Aminotransferase (ALT/SGPT) 51, Alkaline Phosphatase 128H, Total Protein 7.1, Albumin 2.5L, Globulin 4.6, Albumin/Globulin Ratio 0.5L Height (Feet): 5 Height (Inches): 4.00 Weight (Pounds): 179 General Appearance: no apparent distress, lethargic Cardiovascular: tachycardia Respiratory/Chest: decreased breath sounds Abdomen: distended Gordon Pritchett MD Jul 05, 2020 10:35
--- NOTE | 2020-07-05 10:47 | NUR ---
insurance CLINICALS FAXED TO [facility]#[phone] fax#[phone]
[2020-07-05 12:00] VITALS: BP 153/65
--- NOTE | 2020-07-05 12:01 | Infectious Diseases Prog Note ---
Assessment/Plan Assessment/Plan IMPRESSION: 1. Atelectasis versus pneumonia in the left lung base. 2. Pyuria and bacteriuria, may have UTI, 3. Diabetes mellitus. 4. Hypertensive, accelerated 5. Cirrhosis. 6. Anemia. 7. s/p cholecystectomy RECOMMENDATION: Continue with ceftriaxone. Repeat CXR Subjective ROS Limited/Unobtainable: Yes Constitutional: Reports: other - poor appetite Allergies: Coded Allergies: No Known Allergies (Unverified , 02/22/15) Objective Last 24 Hour Vital Signs Date Time Temp Pulse Resp B/P (MAP) Pulse Ox O2 Delivery O2 Flow Rate FiO2 07/05/20 09:43 147/76 07/05/20 09:43 96 147/76 07/05/20 09:00 Nasal Cannula 1.0 07/05/20 08:00 96.9 59 20 147/76 (99) 91 07/05/20 08:00 96 07/05/20 04:00 88 07/05/20 04:00 98.0 88 18 154/73 (100) 92 07/05/20 00:00 98.1 93 20 149/64 (92) 94 07/05/20 00:00 89 07/04/20 21:50 92 162/67 07/04/20 21:00 Nasal Cannula 2.0 07/04/20 20:00 97.0 95 20 162/67 (98) 92 07/04/20 20:00 83 07/04/20 16:00 80 07/04/20 16:00 97.4 85 20 143/61 (88) 100 07/04/20 12:00 97.2 92 18 143/67 (92) 95 07/04/20 12:00 87 Height (Feet): 5 Height (Inches): 4.00 Weight (Pounds): 179 HEENT: mucous membranes moist Respiratory/Chest: lungs clear Cardiovascular: normal rate Abdomen: soft, non tender Extremities: no edema Neurologic/Psychiatric: alert, responsive Laboratory Tests Test 07/05/20 05:50 White Blood Count 8.0 K/UL (4.8-10.8) Red Blood Count 3.73 M/UL (4.20-5.40) L Hemoglobin 8.0 G/DL (12.0-16.0) L Hematocrit 27.2 % (37.0-47.0) L Mean Corpuscular Volume 73 FL (80-99) L Mean Corpuscular Hemoglobin 21.3 PG (27.0-31.0) L Mean Corpuscular Hemoglobin Concent 29.3 G/DL (32.0-36.0) L Red Cell Distribution Width 16.9 % (11.6-14.8) H Platelet Count 254 K/UL (150-450) Mean Platelet Volume 6.6 FL (6.5-10.1) Neutrophils (%) (Auto) 50.2 % (45.0-75.0) Lymphocytes (%) (Auto) 33.9 % (20.0-45.0) Monocytes (%) (Auto) 11.0 % (1.0-10.0) H Eosinophils (%) (Auto) 3.6 % (0.0-3.0) H Basophils (%) (Auto) 1.3 % (0.0-2.0) Sodium Level 140 MMOL/L (136-145) Potassium Level 3.9 MMOL/L (3.5-5.1) Chloride Level 106 MMOL/L (98-107) Carbon Dioxide Level 30 MMOL/L (21-32) Anion Gap 4 mmol/L (5-15) L Blood Urea Nitrogen 9 mg/dL (7-18) Creatinine 0.9 MG/DL (0.55-1.30) Estimat Glomerular Filtration Rate > 60 mL/min (>60) Glucose Level 82 MG/DL (74-106) Calcium Level 8.9 MG/DL (8.5-10.1) Total Bilirubin 0.3 MG/DL (0.2-1.0) Aspartate Amino Transf (AST/SGOT) 89 U/L (15-37) H Alanine Aminotransferase (ALT/SGPT) 51 U/L (12-78) Alkaline Phosphatase 128 U/L (46-116) H Total Protein 7.1 G/DL (6.4-8.2) Albumin 2.5 G/DL (3.4-5.0) L Globulin 4.6 g/dL Albumin/Globulin Ratio 0.5 (1.0-2.7) L Current Medications Medications (Trade) Dose Ordered Sig/Yasmany Route PRN Reason Start Time Stop Time Status Last Admin Dose Admin Amlodipine Besylate (Norvasc) 5 mg Q12HR ORAL 07/03/20 21:00 08/02/20 20:59 07/05/20 09:43 Ceftriaxone Sodium 1 gm/ Dextrose 55 ml @ 110 mls/hr Q24H IVPB 07/02/20 21:00 07/09/20 20:59 07/04/20 21:52 Clonidine HCl (Catapres Tab) 0.1 mg Q6H PRN ORAL For High Blood Pressure 07/02/20 02:15 09/30/20 02:14 Docusate Sodium (Colace) 100 mg THREE TIMES A DAY ORAL 07/02/20 18:00 08/01/20 17:59 07/05/20 09:43 Iron Sucrose 100 mg/Sodium Chloride 60 ml @ 240 mls/hr BEDTIME IVPB 07/04/20 21:00 07/08/20 21:14 07/04/20 21:52 Lisinopril (ZestriL) 10 mg DAILY ORAL 07/04/20 09:00 08/03/20 08:59 07/05/20 09:43 Pantoprazole (Protonix) 40 mg EVERY 12 HOURS ORAL 07/02/20 21:00 08/01/20 20:59 07/05/20 09:43 Polyethylene Glycol (Miralax) 17 gm BEDTIME ORAL 07/05/20 21:00 08/04/20 20:59 Keanu Goodson MD Jul 05, 2020 12:00
--- NOTE | 2020-07-05 13:28 | NUR ---
RADIOLOGY DEPT., CHEST X-RAY DONE.-P.DYE
--- NOTE | 2020-07-05 13:31 | Cardiac Electrophysiology PN ---
Assessment/Plan Assessment/Plan 1. Shortness of breath. EKG shows sinus rhythm with nonspecific ST-T wave abnormalities. Ruled out [place] protocol. EF 65% on echocardiogram. 2. Accelerated hypertension. On Norvasc 5 po bid and Lisinopril 10 daily On p.r.n. clonidine. 3. Shortness of breath and pneumonia. Repeat CXR today Further evaluation by Dr. Chaney. 4. Left base atelectasis on chest CT and possible pneumonia, Subjective Subjective BP better. No CP or SOB.On Nasal cannula. Is getting bedside CXR Objective Last 24 Hour Vital Signs Date Time Temp Pulse Resp B/P (MAP) Pulse Ox O2 Delivery O2 Flow Rate FiO2 07/05/20 12:00 98.1 68 19 153/65 (94) 95 07/05/20 09:43 147/76 07/05/20 09:43 96 147/76 07/05/20 09:00 Nasal Cannula 1.0 07/05/20 08:00 96.9 59 20 147/76 (99) 91 07/05/20 08:00 96 07/05/20 04:00 88 07/05/20 04:00 98.0 88 18 154/73 (100) 92 07/05/20 00:00 98.1 93 20 149/64 (92) 94 07/05/20 00:00 89 07/04/20 21:50 92 162/67 07/04/20 21:00 Nasal Cannula 2.0 07/04/20 20:00 97.0 95 20 162/67 (98) 92 07/04/20 20:00 83 07/04/20 16:00 80 07/04/20 16:00 97.4 85 20 143/61 (88) 100 Intake and Output 07/04/20 07/05/20 19:00 07:00 Intake Total 240 ml 120 ml Output Total 450 ml Balance -210 ml 120 ml Intake Oral 240 ml 120 ml Output Urine Total 450 ml # Voids 3 Laboratory Tests Test 07/05/20 05:50 White Blood Count 8.0 K/UL (4.8-10.8) Red Blood Count 3.73 M/UL (4.20-5.40) L Hemoglobin 8.0 G/DL (12.0-16.0) L Hematocrit 27.2 % (37.0-47.0) L Mean Corpuscular Volume 73 FL (80-99) L Mean Corpuscular Hemoglobin 21.3 PG (27.0-31.0) L Mean Corpuscular Hemoglobin Concent 29.3 G/DL (32.0-36.0) L Red Cell Distribution Width 16.9 % (11.6-14.8) H Platelet Count 254 K/UL (150-450) Mean Platelet Volume 6.6 FL (6.5-10.1) Neutrophils (%) (Auto) 50.2 % (45.0-75.0) Lymphocytes (%) (Auto) 33.9 % (20.0-45.0) Monocytes (%) (Auto) 11.0 % (1.0-10.0) H Eosinophils (%) (Auto) 3.6 % (0.0-3.0) H Basophils (%) (Auto) 1.3 % (0.0-2.0) Sodium Level 140 MMOL/L (136-145) Potassium Level 3.9 MMOL/L (3.5-5.1) Chloride Level 106 MMOL/L (98-107) Carbon Dioxide Level 30 MMOL/L (21-32) Anion Gap 4 mmol/L (5-15) L Blood Urea Nitrogen 9 mg/dL (7-18) Creatinine 0.9 MG/DL (0.55-1.30) Estimat Glomerular Filtration Rate > 60 mL/min (>60) Glucose Level 82 MG/DL (74-106) Calcium Level 8.9 MG/DL (8.5-10.1) Total Bilirubin 0.3 MG/DL (0.2-1.0) Aspartate Amino Transf (AST/SGOT) 89 U/L (15-37) H Alanine Aminotransferase (ALT/SGPT) 51 U/L (12-78) Alkaline Phosphatase 128 U/L (46-116) H Total Protein 7.1 G/DL (6.4-8.2) Albumin 2.5 G/DL (3.4-5.0) L Globulin 4.6 g/dL Albumin/Globulin Ratio 0.5 (1.0-2.7) L Objective HEAD AND NECK: No JVD. LUNGS: Clear. CARDIOVASCULAR: Regular S1 and S2 with no gallop or murmur. ABDOMEN: Soft. EXTREMITIES: 1+ pitting edema. Jude Stone MD Jul 05, 2020 13:31
--- NOTE | 2020-07-05 14:08 | Diagnostic Imaging Report ---
Indication: Cough Technique: One view of the chest Comparison: 07/01/2020 Findings: There is persistent new right basilar atelectasis. Otherwise little change agent left basilar opacity, reported on recent CT scan to represent a large hiatal hernia. There is compressive atelectasis at the left lung base. New minimal atelectasis is seen in the right lung base. No new infiltrates. No definite effusions. Normal heart size. Impression: Basilar atelectasis. Otherwise little change agent 4 days
[2020-07-05 16:00] VITALS: BP 149/81
--- NOTE | 2020-07-05 19:34 | General Progress Note ---
Subjective ROS Limited/Unobtainable: Yes Allergies: Coded Allergies: No Known Allergies (Unverified , 02/22/15) Objective Last 24 Hour Vital Signs Date Time Temp Pulse Resp B/P (MAP) Pulse Ox O2 Delivery O2 Flow Rate FiO2 07/05/20 16:00 96.7 79 21 149/81 (103) 96 07/05/20 16:00 96 07/05/20 12:00 89 07/05/20 12:00 98.1 68 19 153/65 (94) 95 07/05/20 09:43 147/76 07/05/20 09:43 96 147/76 07/05/20 09:00 Nasal Cannula 1.0 07/05/20 08:00 96.9 59 20 147/76 (99) 91 07/05/20 08:00 96 07/05/20 04:00 88 07/05/20 04:00 98.0 88 18 154/73 (100) 92 07/05/20 00:00 98.1 93 20 149/64 (92) 94 07/05/20 00:00 89 07/04/20 21:50 92 162/67 07/04/20 21:00 Nasal Cannula 2.0 07/04/20 20:00 97.0 95 20 162/67 (98) 92 07/04/20 20:00 83 Intake and Output 07/04/20 07/05/20 19:00 07:00 Intake Total 240 ml 120 ml Output Total 450 ml Balance -210 ml 120 ml Intake Oral 240 ml 120 ml Output Urine Total 450 ml # Voids 3 Laboratory Tests 07/05/20 05:50: White Blood Count 8.0, Red Blood Count 3.73L, Hemoglobin 8.0L, Hematocrit 27.2L, Mean Corpuscular Volume 73L, Mean Corpuscular Hemoglobin 21.3L, Mean Corpuscular Hemoglobin Concent 29.3L, Red Cell Distribution Width 16.9H, Platelet Count 254, Mean Platelet Volume 6.6, Neutrophils (%) (Auto) 50.2, Lymphocytes (%) (Auto) 33.9, Monocytes (%) (Auto) 11.0H, Eosinophils (%) (Auto) 3.6H, Basophils (%) (Auto) 1.3, Sodium Level 140, Potassium Level 3.9, Chloride Level 106, Carbon Dioxide Level 30, Anion Gap 4L, Blood Urea Nitrogen 9, Creatinine 0.9, Estimat Glomerular Filtration Rate > 60, Glucose Level 82, Calcium Level 8.9, Total Bilirubin 0.3, Aspartate Amino Transf (AST/SGOT) 89H, Alanine Aminotransferase (ALT/SGPT) 51, Alkaline Phosphatase 128H, Total Protein 7.1, Albumin 2.5L, Globulin 4.6, Albumin/Globulin Ratio 0.5L Height (Feet): 5 Height (Inches): 4.00 Weight (Pounds): 179 Assessment/Plan Problem List: (1) Weakness ICD Codes: R53.1 - Weakness SNOMED: 35150031 (2) Hypertensive urgency ICD Codes: I16.0 - Hypertensive urgency SNOMED: 612758308 (3) UTI (urinary tract infection) ICD Codes: N39.0 - Urinary tract infection, site not specified SNOMED: 42009077 (4) DMII (diabetes mellitus, type 2) ICD Codes: E11.9 - Type 2 diabetes mellitus without complications SNOMED: 97280408 (5) Abdominal pain ICD Codes: R10.9 - Unspecified abdominal pain SNOMED: 17547716 (6) Hiatal hernia ICD Codes: K44.9 - Diaphragmatic hernia without obstruction or gangrene SNOMED: 18844901 Status: progressing Assessment/Plan: anemia dm resp insuff pna on oxygen weak and debilitated Swathi Washington MD Jul 05, 2020 19:34
--- NOTE | 2020-07-05 19:49 | NUR ---
NURSE NOTES: received patient resting comfortable in bed with no signs of distress. assessment initiated. bed alarm on. call [facility] within reach, will continue to monitor.
[2020-07-05 20:00] VITALS: BP 148/81
[2020-07-05] MEDS: Miralax 17gm pkt ORAL SCH (20:55)
[2020-07-05] MEDS: Acetaminophen 500mg (ES) tab ORAL PRN (20:56)
[2020-07-05] MEDS: Iron Sucrose 100 MG in NS 55 ML IVPB SCH (20:58)
[2020-07-05] MEDS: cefTRIAXone 1 GM in D5W 55 ML IVPB SCH (20:58)
[2020-07-06] VITALS: BP 166/74
--- NOTE | 2020-07-06 02:44 | NUR ---
NURSE NOTES: patient resting comfortable in bed with no signs of distress. call [facility] within reach, bed alarm on. will continue to monitor.
[2020-07-06 04:00] VITALS: BP 152/72
[2020-07-06 06:28] LABS: BASOPHILS % (AUTO) 1.4 % (0.0-2.0); EOSINOPHILS % (AUTO) 3.8 % (0.0-3.0); HEMATOCRIT 29.6 % (37.0-47.0); HEMOGLOBIN 8.6 G/DL (12.0-16.0); LYMPHOCYTES % (AUTO) 31.5 % (20.0-45.0); MEAN CORPUSCULAR VOLUME 73 FL (80-99); MONOCYTES % (AUTO) 9.9 % (1.0-10.0); NEUTROPHILS % (AUTO) 53.5 % (45.0-75.0); PLATELET COUNT 292 K/UL (150-450); RED BLOOD COUNT 4.03 M/UL (4.20-5.40); RED CELL DISTRIBUTION WIDTH 17.7 % (11.6-14.8); WHITE BLOOD COUNT 9.8 K/UL (4.8-10.8)
--- NOTE | 2020-07-06 06:33 | NUR ---
NURSE NOTES: towels, hygiene kit, gowns given to patient for bath. start new iv #22 right wrist. patient accidently remove old iv from the right AC.
--- NOTE | 2020-07-06 07:07 | NUR ---
NURSE HAND-OFF REPORT: Important Events on Shift:[] Patient Status: [] Diet: [] Pending Orders: [] Pending Results/Labs:[] Pending MD notification:[] Latest Vital Signs: Temperature 98.0 , Pulse 87 , B/P 152 /72 , Respiratory Rate 20 , O2 SAT 95 , Room Air, O2 Flow Rate 1.0 . Vital Sign Comment: [] EKG Rhythm: Sinus Rhythm Rhythm change?: N MD Notified?: - MD Response: Latest Crawford Fall Score: 60 Fall Risk: High Risk Safety Measures: Call light Within Reach, Bed Alarm Zone 1, Side Rails Side Rails x2, Bed position Low and Locked. Fall Precautions: Yellow Socks Yellow Gown Door Sign Patient Fall Education Report given to [].
[2020-07-06 08:00] VITALS: BP 148/93
--- NOTE | 2020-07-06 08:54 | NUR ---
NURSE NOTES: Received order from Dr Washington for DC to [facility], resume home meds and DC hosp meds + 1g Rocephin IV q24h x4 days. Spoke to patient and patient daughter and both are refusing SNF. They are requesting HH. Notified Dr Washington
[2020-07-06] MEDS: Docusate 100mg cap ORAL SCH ×3 (08:55→18:25)
[2020-07-06] MEDS: Lisinopril 10mg tab ORAL SCH ×2 (08:55→18:25)
--- NOTE | 2020-07-06 10:36 | Pulmonology Progress Note ---
Subjective ROS Limited/Unobtainable: Yes Interval Events: back on room air Constitutional: Reports: other - poor appetite HEENT: Repors: no symptoms Respiratory: Reports: shortness of breath Cardiovascular: Reports: no symptoms Gastrointestinal/Abdominal: Reports: no symptoms Allergies: Coded Allergies: No Known Allergies (Unverified , 02/22/15) Objective Last 24 Hour Vital Signs Date Time Temp Pulse Resp B/P (MAP) Pulse Ox O2 Delivery O2 Flow Rate FiO2 07/06/20 09:00 Nasal Cannula 1.0 07/06/20 08:55 148/93 07/06/20 08:55 89 148/93 07/06/20 08:00 91 07/06/20 08:00 97.1 89 20 148/93 (111) 97 07/06/20 04:00 98.0 92 20 152/72 (98) 95 07/06/20 04:00 87 07/06/20 00:00 89 07/06/20 00:00 98.3 79 20 166/74 (104) 95 07/05/20 21:00 Nasal Cannula 1.0 07/05/20 20:57 95 148/64 07/05/20 20:00 90 07/05/20 20:00 97.9 79 20 148/81 (103) 93 07/05/20 16:00 96.7 79 21 149/81 (103) 96 07/05/20 16:00 96 07/05/20 12:00 89 07/05/20 12:00 98.1 68 19 153/65 (94) 95 Intake and Output 07/05/20 07/06/20 19:00 07:00 Intake Total 600 ml 120 ml Balance 600 ml 120 ml Intake Oral 600 ml 120 ml # Voids 6 2 # Bowel Movements 3 General Appearance: no acute distress HEENT: atraumatic Respiratory: lungs clear Cardiovascular: normal rate, regular rhythm Abdomen: tender - RUQ Laboratory Tests 07/06/20 05:37: White Blood Count 9.8, Red Blood Count 4.03L, Hemoglobin 8.6L, Hematocrit 29.6L, Mean Corpuscular Volume 73L, Mean Corpuscular Hemoglobin 21.4L, Mean Corpuscular Hemoglobin Concent 29.2L, Red Cell Distribution Width 17.7H, Platelet Count 292, Mean Platelet Volume 7.6, Neutrophils (%) (Auto) 53.5, Lymphocytes (%) (Auto) 31.5, Monocytes (%) (Auto) 9.9, Eosinophils (%) (Auto) 3.8H, Basophils (%) (Auto) 1.4 Current Medications Medications (Trade) Dose Ordered Sig/Yasmany Route PRN Reason Start Time Stop Time Status Last Admin Dose Admin Acetaminophen (Tylenol) 500 mg Q6H PRN ORAL Mild Pain (Pain Scale 1-3) 07/05/20 20:30 08/04/20 20:29 07/05/20 20:56 Amlodipine Besylate (Norvasc) 5 mg Q12HR ORAL 07/03/20 21:00 08/02/20 20:59 07/06/20 08:55 Ceftriaxone Sodium 1 gm/ Dextrose 55 ml @ 110 mls/hr Q24H IVPB 07/02/20 21:00 07/09/20 20:59 07/05/20 20:58 Clonidine HCl (Catapres Tab) 0.1 mg Q6H PRN ORAL For High Blood Pressure 07/02/20 02:15 09/30/20 02:14 Docusate Sodium (Colace) 100 mg THREE TIMES A DAY ORAL 07/02/20 18:00 08/01/20 17:59 07/06/20 08:55 Iron Sucrose 100 mg/Sodium Chloride 60 ml @ 240 mls/hr BEDTIME IVPB 07/04/20 21:00 07/08/20 21:14 07/05/20 20:58 Lisinopril (ZestriL) 10 mg DAILY ORAL 07/04/20 09:00 08/03/20 08:59 07/06/20 08:55 Pantoprazole (Protonix) 40 mg EVERY 12 HOURS ORAL 07/02/20 21:00 08/01/20 20:59 07/06/20 08:55 Polyethylene Glycol (Miralax) 17 gm BEDTIME ORAL 07/05/20 21:00 08/04/20 20:59 07/05/20 20:55 Assessment/Plan Assessment/Plan 1. UTI - on Abx - f/u UCx negative (07/01) 2. Acute respiratory distress on admission -Continue supplemental oxygen; currently saturating well on 2L NC - No indication for steroid at this time - Serial trops neg and 2D Echo EF 55-60% 3. Hypertensive urgency - now BP better controlled . COVID-19 negative (07/01) 5. DVT ppx - on SCD 6. Left base atelectasis on chest CT - Normoxemia on low flow oxygen 7. ? pneumonia; afebrile, no leukocytosis - recommend Abx for pneumonia coverage 8. ? Liver cirrhosis - GI following - Abd US, hep panel Possible EGD/Col on Fri if cleared by cardio -> refusing EGD/[place] per GI Noted plan for dc home with home health to complete course of Abx Medically stable from pulmonary standpoint The care for this patient was discussed with my supervising physician. Time spent for this case was approximately 31 minutes. Jovan Santos Jul 06, 2020 10:36
--- NOTE | 2020-07-06 10:37 | Cardiac Electrophysiology PN ---
Assessment/Plan Assessment/Plan 1. Shortness of breath. EKG shows sinus rhythm with nonspecific ST-T wave abnormalities. Ruled out NM protocol. EF 65% on echocardiogram. 2. Accelerated hypertension. On Norvasc 5 po bid and Lisinopril 10 daily On p.r.n. clonidine. 3. Shortness of breath and pneumonia. Fu by Dr. Chaney. 4. Left base atelectasis on chest CT and possible pneumonia, Subjective Subjective No CP or SOB.On Nasal cannula. Family refusing SNIF placement and DC home with HH is pending Objective Last 24 Hour Vital Signs Date Time Temp Pulse Resp B/P (MAP) Pulse Ox O2 Delivery O2 Flow Rate FiO2 07/06/20 09:00 Nasal Cannula 1.0 07/06/20 08:55 148/93 07/06/20 08:55 89 148/93 07/06/20 08:00 91 07/06/20 08:00 97.1 89 20 148/93 (111) 97 07/06/20 04:00 98.0 92 20 152/72 (98) 95 07/06/20 04:00 87 07/06/20 00:00 89 07/06/20 00:00 98.3 79 20 166/74 (104) 95 07/05/20 21:00 Nasal Cannula 1.0 07/05/20 20:57 95 148/64 07/05/20 20:00 90 07/05/20 20:00 97.9 79 20 148/81 (103) 93 07/05/20 16:00 96.7 79 21 149/81 (103) 96 07/05/20 16:00 96 07/05/20 12:00 89 07/05/20 12:00 98.1 68 19 153/65 (94) 95 Intake and Output 07/05/20 07/06/20 19:00 07:00 Intake Total 600 ml 120 ml Balance 600 ml 120 ml Intake Oral 600 ml 120 ml # Voids 6 2 # Bowel Movements 3 Laboratory Tests Test 07/06/20 05:37 White Blood Count 9.8 K/UL (4.8-10.8) Red Blood Count 4.03 M/UL (4.20-5.40) L Hemoglobin 8.6 G/DL (12.0-16.0) L Hematocrit 29.6 % (37.0-47.0) L Mean Corpuscular Volume 73 FL (80-99) L Mean Corpuscular Hemoglobin 21.4 PG (27.0-31.0) L Mean Corpuscular Hemoglobin Concent 29.2 G/DL (32.0-36.0) L Red Cell Distribution Width 17.7 % (11.6-14.8) H Platelet Count 292 K/UL (150-450) Mean Platelet Volume 7.6 FL (6.5-10.1) Neutrophils (%) (Auto) 53.5 % (45.0-75.0) Lymphocytes (%) (Auto) 31.5 % (20.0-45.0) Monocytes (%) (Auto) 9.9 % (1.0-10.0) Eosinophils (%) (Auto) 3.8 % (0.0-3.0) H Basophils (%) (Auto) 1.4 % (0.0-2.0) Objective HEAD AND NECK: No JVD. LUNGS: Clear. CARDIOVASCULAR: Regular S1 and S2 with no gallop or murmur. ABDOMEN: Soft. EXTREMITIES: 1+ pitting edema. Jude Stone MD Jul 06, 2020 10:37
--- NOTE | 2020-07-06 10:55 | Infectious Diseases Prog Note ---
Assessment/Plan Assessment/Plan IMPRESSION: 1. Atelectasis versus pneumonia in the left lung base. 2. Pyuria and bacteriuria, may have UTI, 3. Diabetes mellitus. 4. Hypertensive, accelerated 5. Cirrhosis. 6. Anemia. 7. s/p cholecystectomy RECOMMENDATION: Continue with ceftriaxone until tomorrow Subjective ROS Limited/Unobtainable: Yes Constitutional: Reports: anorexia; Denies: fever Respiratory: Reports: no symptoms Gastrointestinal/Abdominal: Reports: no symptoms Allergies: Coded Allergies: No Known Allergies (Unverified , 02/22/15) Objective Last 24 Hour Vital Signs Date Time Temp Pulse Resp B/P (MAP) Pulse Ox O2 Delivery O2 Flow Rate FiO2 07/06/20 09:00 Nasal Cannula 1.0 07/06/20 08:55 148/93 07/06/20 08:55 89 148/93 07/06/20 08:00 91 07/06/20 08:00 97.1 89 20 148/93 (111) 97 07/06/20 04:00 98.0 92 20 152/72 (98) 95 07/06/20 04:00 87 07/06/20 00:00 89 07/06/20 00:00 98.3 79 20 166/74 (104) 95 07/05/20 21:00 Nasal Cannula 1.0 07/05/20 20:57 95 148/64 07/05/20 20:00 90 07/05/20 20:00 97.9 79 20 148/81 (103) 93 07/05/20 16:00 96.7 79 21 149/81 (103) 96 07/05/20 16:00 96 07/05/20 12:00 89 07/05/20 12:00 98.1 68 19 153/65 (94) 95 Height (Feet): 5 Height (Inches): 4.00 Weight (Pounds): 179 General Appearance: no acute distress HEENT: mucous membranes moist Respiratory/Chest: lungs clear Cardiovascular: normal rate Abdomen: soft, non tender Extremities: no edema Neurologic/Psychiatric: alert, responsive Laboratory Tests Test 07/06/20 05:37 White Blood Count 9.8 K/UL (4.8-10.8) Red Blood Count 4.03 M/UL (4.20-5.40) L Hemoglobin 8.6 G/DL (12.0-16.0) L Hematocrit 29.6 % (37.0-47.0) L Mean Corpuscular Volume 73 FL (80-99) L Mean Corpuscular Hemoglobin 21.4 PG (27.0-31.0) L Mean Corpuscular Hemoglobin Concent 29.2 G/DL (32.0-36.0) L Red Cell Distribution Width 17.7 % (11.6-14.8) H Platelet Count 292 K/UL (150-450) Mean Platelet Volume 7.6 FL (6.5-10.1) Neutrophils (%) (Auto) 53.5 % (45.0-75.0) Lymphocytes (%) (Auto) 31.5 % (20.0-45.0) Monocytes (%) (Auto) 9.9 % (1.0-10.0) Eosinophils (%) (Auto) 3.8 % (0.0-3.0) H Basophils (%) (Auto) 1.4 % (0.0-2.0) Current Medications Medications (Trade) Dose Ordered Sig/Yasmany Route PRN Reason Start Time Stop Time Status Last Admin Dose Admin Acetaminophen (Tylenol) 500 mg Q6H PRN ORAL Mild Pain (Pain Scale 1-3) 07/05/20 20:30 08/04/20 20:29 07/05/20 20:56 Amlodipine Besylate (Norvasc) 5 mg Q12HR ORAL 07/03/20 21:00 08/02/20 20:59 07/06/20 08:55 Ceftriaxone Sodium 1 gm/ Dextrose 55 ml @ 110 mls/hr Q24H IVPB 07/02/20 21:00 07/09/20 20:59 07/05/20 20:58 Clonidine HCl (Catapres Tab) 0.1 mg Q6H PRN ORAL For High Blood Pressure 07/02/20 02:15 09/30/20 02:14 Docusate Sodium (Colace) 100 mg THREE TIMES A DAY ORAL 07/02/20 18:00 08/01/20 17:59 07/06/20 08:55 Iron Sucrose 100 mg/Sodium Chloride 60 ml @ 240 mls/hr BEDTIME IVPB 07/04/20 21:00 07/08/20 21:14 07/05/20 20:58 Lisinopril (ZestriL) 10 mg DAILY ORAL 07/04/20 09:00 08/03/20 08:59 07/06/20 08:55 Pantoprazole (Protonix) 40 mg EVERY 12 HOURS ORAL 07/02/20 21:00 08/01/20 20:59 07/06/20 08:55 Polyethylene Glycol (Miralax) 17 gm BEDTIME ORAL 07/05/20 21:00 08/04/20 20:59 07/05/20 20:55 Keanu Goodson MD Jul 06, 2020 10:55
--- NOTE | 2020-07-06 11:44 | NUR ---
DISCHARGE PLANNING INQUIRY FAXED TO [facility] [phone]
[2020-07-06 12:15] VITALS: BP 142/70
--- NOTE | 2020-07-06 12:26 | Nephrology Progress Note ---
Assessment/Plan Problem List: (1) Iron deficiency anemia (2) Hypertensive urgency (3) UTI (urinary tract infection) (4) DMII (diabetes mellitus, type 2) Assessment: Hemoglobin A1c 7.1 Assessment Hypertensive urgency Anemia, low MCV Weakness Hiatus hernia UTI DM Plan July 06: Labs reviewed. Renal parameters stable. Blood pressure is stable. Medication list reviewed. Blood pressure medication adjusted July 05: Labs reviewed. Blood pressure in check. Continue per consultants. Medication list reviewed. July 04: No blood drawn today. Blood pressure better controlled. Will check lab tomorrow. Continue to rest. July 03: Blood pressure needs better control, hence lisinopril added to Norvasc. IV iron initiated for low iron anemia. Continue per consultants. Stable from renal standpoint of view. Antibiotic for UTI in process. Subjective ROS Limited/Unobtainable: No Objective Objective Last 24 Hour Vital Signs Date Time Temp Pulse Resp B/P (MAP) Pulse Ox O2 Delivery O2 Flow Rate FiO2 07/06/20 12:15 98.7 77 20 142/70 (94) 98 07/06/20 09:00 Nasal Cannula 1.0 07/06/20 08:55 148/93 07/06/20 08:55 89 148/93 07/06/20 08:00 91 07/06/20 08:00 97.1 89 20 148/93 (111) 97 07/06/20 04:00 98.0 92 20 152/72 (98) 95 07/06/20 04:00 87 07/06/20 00:00 89 07/06/20 00:00 98.3 79 20 166/74 (104) 95 07/05/20 21:00 Nasal Cannula 1.0 07/05/20 20:57 95 148/64 07/05/20 20:00 90 07/05/20 20:00 97.9 79 20 148/81 (103) 93 07/05/20 16:00 96.7 79 21 149/81 (103) 96 07/05/20 16:00 96 Intake and Output 07/05/20 07/06/20 19:00 07:00 Intake Total 600 ml 120 ml Balance 600 ml 120 ml Intake Oral 600 ml 120 ml # Voids 6 2 # Bowel Movements 3 Current Medications Medications (Trade) Dose Ordered Sig/Yasmany Route PRN Reason Start Time Stop Time Status Last Admin Dose Admin Acetaminophen (Tylenol) 500 mg Q6H PRN ORAL Mild Pain (Pain Scale 1-3) 07/05/20 20:30 08/04/20 20:29 07/05/20 20:56 Amlodipine Besylate (Norvasc) 5 mg Q12HR ORAL 07/03/20 21:00 08/02/20 20:59 07/06/20 08:55 Ceftriaxone Sodium 1 gm/ Dextrose 55 ml @ 110 mls/hr Q24H IVPB 07/02/20 21:00 07/09/20 20:59 07/05/20 20:58 Clonidine HCl (Catapres Tab) 0.1 mg Q6H PRN ORAL For High Blood Pressure 07/02/20 02:15 09/30/20 02:14 Docusate Sodium (Colace) 100 mg THREE TIMES A DAY ORAL 07/02/20 18:00 08/01/20 17:59 07/06/20 08:55 Iron Sucrose 100 mg/Sodium Chloride 60 ml @ 240 mls/hr BEDTIME IVPB 07/04/20 21:00 07/08/20 21:14 07/05/20 20:58 Lisinopril (ZestriL) 10 mg DAILY ORAL 07/04/20 09:00 08/03/20 08:59 07/06/20 08:55 Pantoprazole (Protonix) 40 mg EVERY 12 HOURS ORAL 07/02/20 21:00 08/01/20 20:59 07/06/20 08:55 Polyethylene Glycol (Miralax) 17 gm BEDTIME ORAL 07/05/20 21:00 08/04/20 20:59 07/05/20 20:55 Laboratory Tests 07/06/20 05:37: White Blood Count 9.8, Red Blood Count 4.03L, Hemoglobin 8.6L, Hematocrit 29.6L, Mean Corpuscular Volume 73L, Mean Corpuscular Hemoglobin 21.4L, Mean Corpuscular Hemoglobin Concent 29.2L, Red Cell Distribution Width 17.7H, Platelet Count 292, Mean Platelet Volume 7.6, Neutrophils (%) (Auto) 53.5, Lymphocytes (%) (Auto) 31.5, Monocytes (%) (Auto) 9.9, Eosinophils (%) (Auto) 3.8H, Basophils (%) (Auto) 1.4 Height (Feet): 5 Height (Inches): 4.00 Weight (Pounds): 179 General Appearance: no apparent distress Cardiovascular: normal rate Respiratory/Chest: decreased breath sounds Abdomen: soft, distended Gordon Pritchett MD Jul 06, 2020 12:26
[2020-07-06] MEDS: Acetaminophen 500mg (ES) tab ORAL PRN ×2 (13:11→21:09)
--- NOTE | 2020-07-06 14:08 | General Progress Note ---
Subjective ROS Limited/Unobtainable: No Allergies: Coded Allergies: No Known Allergies (Unverified , 02/22/15) Objective Last 24 Hour Vital Signs Date Time Temp Pulse Resp B/P (MAP) Pulse Ox O2 Delivery O2 Flow Rate FiO2 07/06/20 12:15 98.7 77 20 142/70 (94) 98 07/06/20 12:00 82 07/06/20 09:00 Nasal Cannula 1.0 07/06/20 08:55 148/93 07/06/20 08:55 89 148/93 07/06/20 08:00 91 07/06/20 08:00 97.1 89 20 148/93 (111) 97 07/06/20 04:00 98.0 92 20 152/72 (98) 95 07/06/20 04:00 87 07/06/20 00:00 89 07/06/20 00:00 98.3 79 20 166/74 (104) 95 07/05/20 21:00 Nasal Cannula 1.0 07/05/20 20:57 95 148/64 07/05/20 20:00 90 07/05/20 20:00 97.9 79 20 148/81 (103) 93 07/05/20 16:00 96.7 79 21 149/81 (103) 96 07/05/20 16:00 96 Intake and Output 07/05/20 07/06/20 19:00 07:00 Intake Total 600 ml 120 ml Balance 600 ml 120 ml Intake Oral 600 ml 120 ml # Voids 6 2 # Bowel Movements 3 Laboratory Tests 07/06/20 05:37: White Blood Count 9.8, Red Blood Count 4.03L, Hemoglobin 8.6L, Hematocrit 29.6L, Mean Corpuscular Volume 73L, Mean Corpuscular Hemoglobin 21.4L, Mean Corpuscular Hemoglobin Concent 29.2L, Red Cell Distribution Width 17.7H, Platelet Count 292, Mean Platelet Volume 7.6, Neutrophils (%) (Auto) 53.5, Lymphocytes (%) (Auto) 31.5, Monocytes (%) (Auto) 9.9, Eosinophils (%) (Auto) 3.8H, Basophils (%) (Auto) 1.4 Height (Feet): 5 Height (Inches): 4.00 Weight (Pounds): 179 General Appearance: no apparent distress EENT: normal ENT inspection Neck: supple Cardiovascular: normal rate Respiratory/Chest: decreased breath sounds Abdomen: hypoactive bowel sounds Extremities: non-tender Assessment/Plan Problem List: (1) DMII (diabetes mellitus, type 2) ICD Codes: E11.9 - Type 2 diabetes mellitus without complications SNOMED: 15598536 (2) UTI (urinary tract infection) ICD Codes: N39.0 - Urinary tract infection, site not specified SNOMED: 34517358 (3) Iron deficiency anemia ICD Codes: D50.9 - Iron deficiency anemia, unspecified SNOMED: 43230089 (4) Hiatal hernia ICD Codes: K44.9 - Diaphragmatic hernia without obstruction or gangrene SNOMED: 88401058 (5) Abdominal pain ICD Codes: R10.9 - Unspecified abdominal pain SNOMED: 21828492 Status: progressing Assessment/Plan: iv iron fu H&H fu stool ob patient refusing EGD and colonoscopy fu hepatitis panel fu abd us>>>> cirrhosis Charlie Kulkarni MD Jul 06, 2020 14:08
[2020-07-06 16:00] VITALS: BP 147/70
--- NOTE | 2020-07-06 19:54 | NUR ---
NURSE NOTES: received patient resting comfortable in bed. patient show no signs of distress. bed alarm on. call [place] within reach. will continue to monitor.
[2020-07-06 20:00] VITALS: BP 131/60
--- NOTE | 2020-07-06 20:58 | General Progress Note ---
Subjective ROS Limited/Unobtainable: Yes Allergies: Coded Allergies: No Known Allergies (Unverified , 02/22/15) Objective Last 24 Hour Vital Signs Date Time Temp Pulse Resp B/P (MAP) Pulse Ox O2 Delivery O2 Flow Rate FiO2 07/06/20 18:25 147/70 07/06/20 16:00 97.7 69 18 147/70 (95) 99 07/06/20 16:00 81 07/06/20 12:15 98.7 77 20 142/70 (94) 98 07/06/20 12:00 82 07/06/20 09:00 Nasal Cannula 1.0 07/06/20 08:55 148/93 07/06/20 08:55 89 148/93 07/06/20 08:00 91 07/06/20 08:00 97.1 89 20 148/93 (111) 97 07/06/20 04:00 98.0 92 20 152/72 (98) 95 07/06/20 04:00 87 07/06/20 00:00 89 07/06/20 00:00 98.3 79 20 166/74 (104) 95 07/05/20 21:00 Nasal Cannula 1.0 Intake and Output 07/05/20 07/06/20 19:00 07:00 Intake Total 600 ml 120 ml Balance 600 ml 120 ml Intake Oral 600 ml 120 ml # Voids 6 2 # Bowel Movements 3 Laboratory Tests 07/06/20 05:37: White Blood Count 9.8, Red Blood Count 4.03L, Hemoglobin 8.6L, Hematocrit 29.6L, Mean Corpuscular Volume 73L, Mean Corpuscular Hemoglobin 21.4L, Mean Corpuscular Hemoglobin Concent 29.2L, Red Cell Distribution Width 17.7H, Platelet Count 292, Mean Platelet Volume 7.6, Neutrophils (%) (Auto) 53.5, Lymphocytes (%) (Auto) 31.5, Monocytes (%) (Auto) 9.9, Eosinophils (%) (Auto) 3.8H, Basophils (%) (Auto) 1.4 Height (Feet): 5 Height (Inches): 4.00 Weight (Pounds): 179 Assessment/Plan Problem List: (1) Weakness ICD Codes: R53.1 - Weakness SNOMED: 07621697 (2) Hypertensive urgency ICD Codes: I16.0 - Hypertensive urgency SNOMED: 918558288 (3) UTI (urinary tract infection) ICD Codes: N39.0 - Urinary tract infection, site not specified SNOMED: 56683845 (4) DMII (diabetes mellitus, type 2) ICD Codes: E11.9 - Type 2 diabetes mellitus without complications SNOMED: 63787691 (5) Abdominal pain ICD Codes: R10.9 - Unspecified abdominal pain SNOMED: 82942705 (6) Hiatal hernia ICD Codes: K44.9 - Diaphragmatic hernia without obstruction or gangrene SNOMED: 68787523 Status: progressing Assessment/Plan: refused snf continue iv abx afebrile not hypoxic resp insuff pna on oxygen weak and debilitated Swathi Washington MD Jul 06, 2020 20:58
[2020-07-06] MEDS: Miralax 17gm pkt ORAL SCH (21:10)
[2020-07-06] MEDS: cefTRIAXone 1 GM in D5W 55 ML IVPB SCH (21:10)
[2020-07-06] MEDS: Iron Sucrose 100 MG in NS 55 ML IVPB SCH (21:11)
[2020-07-07] VITALS: BP 137/82
[2020-07-07 04:00] VITALS: BP 127/58
--- NOTE | 2020-07-07 06:49 | NUR ---
NURSE HAND-OFF REPORT: Important Events on Shift: patient resting comfortable in bed with no signs of distress. no bm tonight. patient received iron infusion and antibiotic Patient Status: full code Diet: carb control Pending Orders: Pending Results/Labs: Pending MD notification: Latest Vital Signs: Temperature 97.8 , Pulse 76 , B/P 127 /58 , Respiratory Rate 20 , O2 SAT 93 , Room Air, O2 Flow Rate 1.0 . Vital Sign Comment: EKG Rhythm: SR with BBB Rhythm change?: N MD Notified?: - MD Response: Latest Crawford Fall Score: 60 Fall Risk: High Risk Safety Measures: Call light Within Reach, Bed Alarm Zone 1, Side Rails Side Rails x2, Bed position Low and Locked. Fall Precautions: in place. bed alarm on. Yellow Socks Door Sign Patient Fall Education Report given to be given to Sara RAY.
[2020-07-07 08:00] VITALS: BP 148/63
[2020-07-07] MEDS: Lisinopril 10mg tab ORAL SCH ×2 (08:37→16:19)
[2020-07-07] MEDS: Docusate 100mg cap ORAL SCH ×3 (08:37→16:19)
--- NOTE | 2020-07-07 09:39 | Pulmonology Progress Note ---
Subjective ROS Limited/Unobtainable: Yes Interval Events: desaturated to 89% last night; now on 1L NC Constitutional: Reports: anorexia; Denies: fever HEENT: Repors: no symptoms Respiratory: Reports: shortness of breath Cardiovascular: Reports: no symptoms Gastrointestinal/Abdominal: Reports: no symptoms Allergies: Coded Allergies: No Known Allergies (Unverified , 02/22/15) Objective Last 24 Hour Vital Signs Date Time Temp Pulse Resp B/P (MAP) Pulse Ox O2 Delivery O2 Flow Rate FiO2 07/07/20 08:37 89 148/63 07/07/20 08:37 148/63 07/07/20 08:00 89 07/07/20 08:00 98.1 96 20 148/63 (91) 94 07/07/20 04:00 76 07/07/20 04:00 97.8 87 20 127/58 (81) 93 07/07/20 00:00 90 07/07/20 00:00 97.8 101 20 137/82 (100) 93 07/06/20 21:09 80 131/60 07/06/20 21:00 Nasal Cannula 1.0 07/06/20 20:00 98.3 80 20 131/60 (83) 95 07/06/20 20:00 84 07/06/20 18:25 147/70 07/06/20 16:00 97.7 69 18 147/70 (95) 99 07/06/20 16:00 81 07/06/20 12:15 98.7 77 20 142/70 (94) 98 07/06/20 12:00 82 Intake and Output 07/06/20 07/07/20 19:00 07:00 Intake Total 720 ml 120 ml Balance 720 ml 120 ml Intake Oral 720 ml 120 ml # Voids 3 3 General Appearance: no acute distress HEENT: atraumatic Respiratory: lungs clear Cardiovascular: normal rate, regular rhythm Abdomen: tender - RUQ Current Medications Medications (Trade) Dose Ordered Sig/Yasmany Route PRN Reason Start Time Stop Time Status Last Admin Dose Admin Acetaminophen (Tylenol) 500 mg Q6H PRN ORAL Mild Pain (Pain Scale 1-3) 07/05/20 20:30 08/04/20 20:29 07/06/20 21:09 Amlodipine Besylate (Norvasc) 10 mg DAILY ORAL 07/07/20 09:00 08/06/20 08:59 07/07/20 08:37 Ceftriaxone Sodium 1 gm/ Dextrose 55 ml @ 110 mls/hr Q24H IVPB 07/02/20 21:00 07/09/20 20:59 07/06/20 21:10 Clonidine HCl (Catapres Tab) 0.1 mg Q6H PRN ORAL For High Blood Pressure 07/02/20 02:15 09/30/20 02:14 Docusate Sodium (Colace) 100 mg THREE TIMES A DAY ORAL 07/02/20 18:00 08/01/20 17:59 07/07/20 08:37 Iron Sucrose 100 mg/Sodium Chloride 60 ml @ 240 mls/hr BEDTIME IVPB 07/04/20 21:00 07/08/20 21:14 07/06/20 21:11 Lisinopril (ZestriL) 10 mg BID ORAL 07/06/20 18:00 08/03/20 08:59 07/07/20 08:37 Pantoprazole (Protonix) 40 mg EVERY 12 HOURS ORAL 07/02/20 21:00 08/01/20 20:59 07/07/20 08:37 Polyethylene Glycol (Miralax) 17 gm BEDTIME ORAL 07/05/20 21:00 08/04/20 20:59 07/06/20 21:10 Assessment/Plan Assessment/Plan 1. UTI - on Abx - f/u UCx negative (07/01) 2. Acute respiratory distress on admission -was on room air; now back on 1L NC due to desaturation -> wean off today - No indication for steroid at this time - Serial trops neg and 2D Echo EF 55-60% 3. Hypertensive urgency - now BP better controlled 4. COVID-19 negative (07/01) 5. DVT ppx - on SCD 6. Left base atelectasis on chest CT - Normoxemia on low flow oxygen/RA 7. ? pneumonia; afebrile, no leukocytosis - recommend Abx for pneumonia coverage 8. ? Liver cirrhosis - GI following - Abd US, hep panel Possible EGD/Col on Fri if cleared by cardio -> refusing EGD/[place] per GI Noted plan for dc home with home health to complete course of Abx Will get PT eval for discharge given desaturation on room air last night The care for this patient was discussed with my supervising physician. Time spent for this case was approximately 31 minutes. Jovan Santos Jul 07, 2020 09:39
--- NOTE | 2020-07-07 09:50 | NUR ---
PT EVALUATION NOTE Patient seen for initial evaluation and treatment initiated. Patient presents with generalized weakness and decreased balance which impairs patient's ability to perform mobility skills safely. Patient requires SBA for bed mobility and CGA for transfers with FWW. Patient able to ambulate 2 x 35 ft with CGA and FWW, min SOB after ambulation. Patient will benefit from skilled inpatient PT intervention to increase strength and postural stability for improved level of functional mobility, safety and activity tolerance. Recommend discharge to SNF for short term rehab vs home with family assistance and home PT. Recommend FWW for ambulation. Addendum: 07/07/20 at 1307 by VARGAS WILSON PT Amended: Links added.
--- NOTE | 2020-07-07 10:15 | Cardiac Electrophysiology PN ---
Assessment/Plan Assessment/Plan 1. Shortness of breath. EKG shows sinus rhythm with nonspecific ST-T wave abnormalities. Ruled out [place] protocol. EF 65% on echocardiogram. 2. Accelerated hypertension. On Norvasc 5 po bid and Lisinopril 10 daily On p.r.n. clonidine. 3. Shortness of breath and pneumonia. Fu by Dr. Chaney. 4. Left base atelectasis on chest CT and possible pneumonia DW RN Subjective Subjective No CP or SOB. Family refusing SNIF placement and DC home with HH is pending Objective Last 24 Hour Vital Signs Date Time Temp Pulse Resp B/P (MAP) Pulse Ox O2 Delivery O2 Flow Rate FiO2 07/07/20 08:37 89 148/63 07/07/20 08:37 148/63 07/07/20 08:00 89 07/07/20 08:00 98.1 96 20 148/63 (91) 94 07/07/20 04:00 76 07/07/20 04:00 97.8 87 20 127/58 (81) 93 07/07/20 00:00 90 07/07/20 00:00 97.8 101 20 137/82 (100) 93 07/06/20 21:09 80 131/60 07/06/20 21:00 Nasal Cannula 1.0 07/06/20 20:00 98.3 80 20 131/60 (83) 95 07/06/20 20:00 84 07/06/20 18:25 147/70 07/06/20 16:00 97.7 69 18 147/70 (95) 99 07/06/20 16:00 81 07/06/20 12:15 98.7 77 20 142/70 (94) 98 07/06/20 12:00 82 Intake and Output 07/06/20 07/07/20 19:00 07:00 Intake Total 720 ml 120 ml Balance 720 ml 120 ml Intake Oral 720 ml 120 ml # Voids 3 3 Objective HEAD AND NECK: No JVD. LUNGS: Clear. CARDIOVASCULAR: Regular S1 and S2 with no gallop or murmur. ABDOMEN: Soft. EXTREMITIES: 1+ pitting edema. Jude Stone MD Jul 07, 2020 10:15
--- NOTE | 2020-07-07 10:54 | Infectious Diseases Prog Note ---
Assessment/Plan Assessment/Plan IMPRESSION: 1. Atelectasis versus pneumonia in the left lung base. 2. Pyuria and bacteriuria, may have UTI, 3. Diabetes mellitus. 4. Hypertensive, accelerated 5. Cirrhosis. 6. Anemia. 7. s/p cholecystectomy RECOMMENDATION: Discontinue ceftriaxone Subjective ROS Limited/Unobtainable: Yes Constitutional: Denies: fever Allergies: Coded Allergies: No Known Allergies (Unverified , 02/22/15) Objective Last 24 Hour Vital Signs Date Time Temp Pulse Resp B/P (MAP) Pulse Ox O2 Delivery O2 Flow Rate FiO2 07/07/20 09:00 Nasal Cannula 1.0 07/07/20 08:37 89 148/63 07/07/20 08:37 148/63 07/07/20 08:00 89 07/07/20 08:00 98.1 96 20 148/63 (91) 94 07/07/20 04:00 76 07/07/20 04:00 97.8 87 20 127/58 (81) 93 07/07/20 00:00 90 07/07/20 00:00 97.8 101 20 137/82 (100) 93 07/06/20 21:09 80 131/60 07/06/20 21:00 Nasal Cannula 1.0 07/06/20 20:00 98.3 80 20 131/60 (83) 95 07/06/20 20:00 84 07/06/20 18:25 147/70 07/06/20 16:00 97.7 69 18 147/70 (95) 99 07/06/20 16:00 81 07/06/20 12:15 98.7 77 20 142/70 (94) 98 07/06/20 12:00 82 Height (Feet): 5 Height (Inches): 4.00 Weight (Pounds): 179 HEENT: mucous membranes moist Respiratory/Chest: lungs clear Cardiovascular: normal rate, other - O2 by nasal cannula Abdomen: soft, non tender Extremities: no edema Neurologic/Psychiatric: other - sleeping Current Medications Medications (Trade) Dose Ordered Sig/Yasmany Route PRN Reason Start Time Stop Time Status Last Admin Dose Admin Acetaminophen (Tylenol) 500 mg Q6H PRN ORAL Mild Pain (Pain Scale 1-3) 07/05/20 20:30 08/04/20 20:29 07/06/20 21:09 Amlodipine Besylate (Norvasc) 10 mg DAILY ORAL 07/07/20 09:00 08/06/20 08:59 07/07/20 08:37 Ceftriaxone Sodium 1 gm/ Dextrose 55 ml @ 110 mls/hr Q24H IVPB 07/02/20 21:00 07/07/20 23:59 07/06/20 21:10 Clonidine HCl (Catapres Tab) 0.1 mg Q6H PRN ORAL For High Blood Pressure 07/02/20 02:15 09/30/20 02:14 Docusate Sodium (Colace) 100 mg THREE TIMES A DAY ORAL 07/02/20 18:00 08/01/20 17:59 07/07/20 08:37 Iron Sucrose 100 mg/Sodium Chloride 60 ml @ 240 mls/hr BEDTIME IVPB 07/04/20 21:00 07/08/20 21:14 07/06/20 21:11 Lisinopril (ZestriL) 10 mg BID ORAL 07/06/20 18:00 08/03/20 08:59 07/07/20 08:37 Pantoprazole (Protonix) 40 mg EVERY 12 HOURS ORAL 07/02/20 21:00 08/01/20 20:59 07/07/20 08:37 Polyethylene Glycol (Miralax) 17 gm BEDTIME ORAL 07/05/20 21:00 08/04/20 20:59 07/06/20 21:10 Keanu Goodson MD Jul 07, 2020 10:54
[2020-07-07 12:00] VITALS: BP 141/62
--- NOTE | 2020-07-07 12:17 | NUR ---
RD ASSESSMENT & RECOMMENDATIONS SEE CARE ACTIVITY FOR COMPLETE ASSESSMENT DAILY ESTIMATED NEEDS: Needs based on cardiac, DM 60kg abw 25-30 kcals/kg 7654-9923 total kcals 1-1.5 g protein/kg 60-90 g total protein 25-30 mL/kg 5961-8150 total fluid mLs NUTRITION DIAGNOSIS: Decreased sodium needs related to cardiac history as evidenced by pt adm w/ Hypertensive urgency, BP now improved(148/63). CURRENT DIET:CCHO LOW PO DIET RECOMMENDATIONS: Low Na / CCHO LOW diet ADDITIONAL RECOMMENDATIONS: 1) Add snacks in b/w meals w/ continued variable po intake 2) Rec POC BG, niss as needed 3) Obtain calibrated bed scale wts
--- NOTE | 2020-07-07 13:00 | Nephrology Progress Note ---
Assessment/Plan Problem List: (1) Iron deficiency anemia (2) Hypertensive urgency (3) UTI (urinary tract infection) (4) DMII (diabetes mellitus, type 2) Assessment: Hemoglobin A1c 7.1 Assessment Hypertensive urgency Anemia, low MCV Weakness Hiatus hernia UTI DM Plan July 07: No new labs drawn today. Blood pressure stable. Will check lab tomorrow. Medication list reviewed. Continue per consultants. July 06: Labs reviewed. Renal parameters stable. Blood pressure is stable. Medication list reviewed. Blood pressure medication adjusted July 05: Labs reviewed. Blood pressure in check. Continue per consultants. Medication list reviewed. July 04: No blood drawn today. Blood pressure better controlled. Will check lab tomorrow. Continue to rest. July 03: Blood pressure needs better control, hence lisinopril added to Norvasc. IV iron initiated for low iron anemia. Continue per consultants. Stable from renal standpoint of view. Antibiotic for UTI in process. Subjective ROS Limited/Unobtainable: No Constitutional: Reports: malaise Objective Objective Last 24 Hour Vital Signs Date Time Temp Pulse Resp B/P (MAP) Pulse Ox O2 Delivery O2 Flow Rate FiO2 07/07/20 09:00 Nasal Cannula 1.0 07/07/20 08:37 89 148/63 07/07/20 08:37 148/63 07/07/20 08:00 89 07/07/20 08:00 98.1 96 20 148/63 (91) 94 07/07/20 04:00 76 07/07/20 04:00 97.8 87 20 127/58 (81) 93 07/07/20 00:00 90 07/07/20 00:00 97.8 101 20 137/82 (100) 93 07/06/20 21:09 80 131/60 07/06/20 21:00 Nasal Cannula 1.0 07/06/20 20:00 98.3 80 20 131/60 (83) 95 07/06/20 20:00 84 07/06/20 18:25 147/70 07/06/20 16:00 97.7 69 18 147/70 (95) 99 07/06/20 16:00 81 Intake and Output 07/06/20 07/07/20 19:00 07:00 Intake Total 720 ml 120 ml Balance 720 ml 120 ml Intake Oral 720 ml 120 ml # Voids 3 3 Current Medications Medications (Trade) Dose Ordered Sig/Yasmany Route PRN Reason Start Time Stop Time Status Last Admin Dose Admin Acetaminophen (Tylenol) 500 mg Q6H PRN ORAL Mild Pain (Pain Scale 1-3) 07/05/20 20:30 08/04/20 20:29 07/06/20 21:09 Amlodipine Besylate (Norvasc) 10 mg DAILY ORAL 07/07/20 09:00 08/06/20 08:59 07/07/20 08:37 Clonidine HCl (Catapres Tab) 0.1 mg Q6H PRN ORAL For High Blood Pressure 07/02/20 02:15 09/30/20 02:14 Docusate Sodium (Colace) 100 mg THREE TIMES A DAY ORAL 07/02/20 18:00 08/01/20 17:59 07/07/20 08:37 Iron Sucrose 100 mg/Sodium Chloride 60 ml @ 240 mls/hr BEDTIME IVPB 07/04/20 21:00 07/08/20 21:14 07/06/20 21:11 Lisinopril (ZestriL) 10 mg BID ORAL 07/06/20 18:00 08/03/20 08:59 07/07/20 08:37 Pantoprazole (Protonix) 40 mg EVERY 12 HOURS ORAL 07/02/20 21:00 08/01/20 20:59 07/07/20 08:37 Polyethylene Glycol (Miralax) 17 gm BEDTIME ORAL 07/05/20 21:00 08/04/20 20:59 07/06/20 21:10 No CHEM panel drawn today Height (Feet): 5 Height (Inches): 4.00 Weight (Pounds): 179 General Appearance: no apparent distress, lethargic Cardiovascular: tachycardia Respiratory/Chest: decreased breath sounds Abdomen: distended Gordon Pritchett MD Jul 07, 2020 13:00
--- NOTE | 2020-07-07 14:06 | General Progress Note ---
Subjective ROS Limited/Unobtainable: No Allergies: Coded Allergies: No Known Allergies (Unverified , 02/22/15) Objective Last 24 Hour Vital Signs Date Time Temp Pulse Resp B/P (MAP) Pulse Ox O2 Delivery O2 Flow Rate FiO2 07/07/20 09:00 Nasal Cannula 1.0 07/07/20 08:37 89 148/63 07/07/20 08:37 148/63 07/07/20 08:00 89 07/07/20 08:00 98.1 96 20 148/63 (91) 94 07/07/20 04:00 76 07/07/20 04:00 97.8 87 20 127/58 (81) 93 07/07/20 00:00 90 07/07/20 00:00 97.8 101 20 137/82 (100) 93 07/06/20 21:09 80 131/60 07/06/20 21:00 Nasal Cannula 1.0 07/06/20 20:00 98.3 80 20 131/60 (83) 95 07/06/20 20:00 84 07/06/20 18:25 147/70 07/06/20 16:00 97.7 69 18 147/70 (95) 99 07/06/20 16:00 81 Intake and Output 07/06/20 07/07/20 19:00 07:00 Intake Total 720 ml 120 ml Balance 720 ml 120 ml Intake Oral 720 ml 120 ml # Voids 3 3 Height (Feet): 5 Height (Inches): 4.00 Weight (Pounds): 179 General Appearance: no apparent distress EENT: normal ENT inspection Neck: supple Cardiovascular: normal rate Respiratory/Chest: decreased breath sounds Abdomen: normal bowel sounds, non tender, soft Extremities: non-tender Assessment/Plan Problem List: (1) DMII (diabetes mellitus, type 2) ICD Codes: E11.9 - Type 2 diabetes mellitus without complications SNOMED: 73552959 (2) UTI (urinary tract infection) ICD Codes: N39.0 - Urinary tract infection, site not specified SNOMED: 27634325 (3) Iron deficiency anemia ICD Codes: D50.9 - Iron deficiency anemia, unspecified SNOMED: 19605562 (4) Hiatal hernia ICD Codes: K44.9 - Diaphragmatic hernia without obstruction or gangrene SNOMED: 36911733 (5) Abdominal pain ICD Codes: R10.9 - Unspecified abdominal pain SNOMED: 55836685 Status: progressing Assessment/Plan: iv iron fu H&H fu stool ob patient refusing EGD and colonoscopy fu hepatitis panel fu abd us>>>> cirrhosis Charlie Kulkarni MD Jul 07, 2020 14:06
--- NOTE | 2020-07-07 14:47 | NUR ---
INSURANCE CLINICALS FAXED TO [facility]#[phone] fax#[phone]
[2020-07-07 16:00] VITALS: BP 132/87
[2020-07-07] MEDS: Acetaminophen 500mg (ES) tab ORAL PRN (16:20)
--- NOTE | 2020-07-07 19:30 | NUR ---
NURSE NOTES: received patient alert resting comfortable in bed with no signs of distress. bed in low position. call de [place] rosa within reach, bed alarm on. will continue to monitor frequently.
[2020-07-07 20:00] VITALS: BP 159/67
[2020-07-07] MEDS: Iron Sucrose 100 MG in NS 55 ML IVPB SCH (20:41)
[2020-07-07] MEDS: Miralax 17gm pkt ORAL SCH (20:44)
--- NOTE | 2020-07-07 21:24 | General Progress Note ---
Subjective ROS Limited/Unobtainable: Yes Allergies: Coded Allergies: No Known Allergies (Unverified , 02/22/15) Objective Last 24 Hour Vital Signs Date Time Temp Pulse Resp B/P (MAP) Pulse Ox O2 Delivery O2 Flow Rate FiO2 07/07/20 16:19 132/87 07/07/20 16:00 85 07/07/20 16:00 98.9 99 20 132/87 (102) 98 07/07/20 12:00 97.0 86 20 141/62 (88) 94 07/07/20 12:00 86 07/07/20 09:00 Nasal Cannula 1.0 07/07/20 08:37 89 148/63 07/07/20 08:37 148/63 07/07/20 08:00 89 07/07/20 08:00 98.1 96 20 148/63 (91) 94 07/07/20 04:00 76 07/07/20 04:00 97.8 87 20 127/58 (81) 93 07/07/20 00:00 90 07/07/20 00:00 97.8 101 20 137/82 (100) 93 Intake and Output 07/06/20 07/07/20 19:00 07:00 Intake Total 720 ml 120 ml Balance 720 ml 120 ml Intake Oral 720 ml 120 ml # Voids 3 3 Height (Feet): 5 Height (Inches): 4.00 Weight (Pounds): 179 Assessment/Plan Problem List: (1) Weakness ICD Codes: R53.1 - Weakness SNOMED: 97123465 (2) Hypertensive urgency ICD Codes: I16.0 - Hypertensive urgency SNOMED: 439669656 (3) UTI (urinary tract infection) ICD Codes: N39.0 - Urinary tract infection, site not specified SNOMED: 82572146 (4) DMII (diabetes mellitus, type 2) ICD Codes: E11.9 - Type 2 diabetes mellitus without complications SNOMED: 42829003 (5) Abdominal pain ICD Codes: R10.9 - Unspecified abdominal pain SNOMED: 58455203 (6) Hiatal hernia ICD Codes: K44.9 - Diaphragmatic hernia without obstruction or gangrene SNOMED: 31572861 Status: progressing Assessment/Plan: supportive therapy no change continue iv fluids refused snf resp insuff pna on oxygen weak and debilitated Swathi Washington MD Jul 07, 2020:24
[2020-07-08] VITALS: BP 138/75
[2020-07-08] MEDS: Acetaminophen 500mg (ES) tab ORAL PRN (00:27)
[2020-07-08 04:00] VITALS: BP 158/73
[2020-07-08 06:04] LABS: BASOPHILS % (AUTO) 1.9 % (0.0-2.0); EOSINOPHILS % (AUTO) 2.7 % (0.0-3.0); HEMATOCRIT 29.7 % (37.0-47.0); HEMOGLOBIN 8.8 G/DL (12.0-16.0); LYMPHOCYTES % (AUTO) 29.1 % (20.0-45.0); MEAN CORPUSCULAR VOLUME 74 FL (80-99); MONOCYTES % (AUTO) 9.5 % (1.0-10.0); NEUTROPHILS % (AUTO) 56.8 % (45.0-75.0); PLATELET COUNT 280 K/UL (150-450); RED BLOOD COUNT 4.02 M/UL (4.20-5.40); RED CELL DISTRIBUTION WIDTH 18.6 % (11.6-14.8); WHITE BLOOD COUNT 9.4 K/UL (4.8-10.8)
[2020-07-08 06:41] LABS: ALANINE AMINOTRANSFERASE 58 U/L (12-78); ALBUMIN 2.9 G/DL (3.4-5.0); ALBUMIN/GLOBULIN RATIO 0.6 (1.0-2.7); ALKALINE PHOSPHATASE 135 U/L (46-116); ANION GAP 7 mmol/L (5-15); ASPARTATE AMINO TRANSFERASE 80 U/L (15-37); BILIRUBIN,TOTAL 0.5 MG/DL (0.2-1.0); BLOOD UREA NITROGEN 7 mg/dL (7-18); CALCIUM 9.5 MG/DL (8.5-10.1); CARBON DIOXIDE 28 MMOL/L (21-32); CHLORIDE 107 MMOL/L (98-107); CREATININE 0.9 MG/DL (0.55-1.30); PHOSPHORUS 3.2 MG/DL (2.5-4.9); POTASSIUM 3.9 MMOL/L (3.5-5.1); SODIUM 142 MMOL/L (136-145)
--- NOTE | 2020-07-08 07:05 | NUR ---
NURSE HAND-OFF REPORT: Important Events on Shift:patient resting comfortable in bed with no signs of distress. bed alarm on. call de la rosa within reach, bed in low position. Patient Status: full Diet: carb control Pending Orders: Pending Results/Labs:y Pending notification: Latest Vital Signs: Temperature 97.6 , Pulse 84 , B/P 158 /73 , Respiratory Rate 16 , O2 SAT 94 , Room Air, O2 Flow Rate 1.0 . Vital Sign Comment: EKG Rhythm: Sinus Rhythm Rhythm change?: N MD Notified?: - MD Response: Latest Crawford Fall Score: 60 Fall Risk: High Risk Safety Measures: Call light Within Reach, Bed Alarm Zone 1, Side Rails Side Rails x2, Bed position Low and Locked. Fall Precautions: bed alarm on. bed in low position. frequently monitoring. Yellow Socks Yellow Gown Door Sign Patient Fall Education Report given to .assign day RN
[2020-07-08 08:00] VITALS: BP 163/80
[2020-07-08] MEDS: Lisinopril 10mg tab ORAL SCH ×2 (08:23→17:44)
[2020-07-08] MEDS: Docusate 100mg cap ORAL SCH ×3 (08:23→17:44)
--- NOTE | 2020-07-08 08:32 | General Progress Note ---
Subjective ROS Limited/Unobtainable: Yes Allergies: Coded Allergies: No Known Allergies (Unverified , 02/22/15) Objective Last 24 Hour Vital Signs Date Time Temp Pulse Resp B/P (MAP) Pulse Ox O2 Delivery O2 Flow Rate FiO2 07/08/20 08:23 97 163/80 07/08/20 08:23 163/80 07/08/20 08:00 97.9 97 20 163/80 (107) 98 07/08/20 04:00 97.6 90 16 158/73 (101) 94 07/08/20 04:00 84 07/08/20 00:00 98.2 92 16 138/75 (96) 94 07/08/20 00:00 89 07/07/20 21:00 Nasal Cannula 1.0 07/07/20 20:00 97.5 95 16 159/67 (97) 93 07/07/20 20:00 110 07/07/20 16:19 132/87 07/07/20 16:00 85 07/07/20 16:00 98.9 99 20 132/87 (102) 98 07/07/20 12:00 97.0 86 20 141/62 (88) 94 07/07/20 12:00 86 07/07/20 09:00 Nasal Cannula 1.0 07/07/20 08:37 89 148/63 07/07/20 08:37 148/63 Intake and Output 07/07/20 07/08/20 19:00 07:00 Intake Total 720 ml 120 ml Balance 720 ml 120 ml Intake Oral 720 ml 120 ml # Voids 4 3 # Bowel Movements 1 Laboratory Tests 07/08/20 05:00: White Blood Count 9.4, Red Blood Count 4.02L, Hemoglobin 8.8L, Hematocrit 29.7L, Mean Corpuscular Volume 74L, Mean Corpuscular Hemoglobin 21.8L, Mean Corpuscular Hemoglobin Concent 29.5L, Red Cell Distribution Width 18.6H, Platelet Count 280, Mean Platelet Volume 6.5, Neutrophils (%) (Auto) 56.8, Lymphocytes (%) (Auto) 29.1, Monocytes (%) (Auto) 9.5, Eosinophils (%) (Auto) 2.7, Basophils (%) (Auto) 1.9, Sodium Level 142, Potassium Level 3.9, Chloride Level 107, Carbon Dioxide Level 28, Anion Gap 7, Blood Urea Nitrogen 7, Creatinine 0.9, Estimat Glomerular Filtration Rate > 60, Glucose Level 114H, Uric Acid 6.3, Calcium Level 9.5, Phosphorus Level 3.2, Magnesium Level 1.6L, Total Bilirubin 0.5, Aspartate Amino Transf (AST/SGOT) 80H, Alanine Aminotransferase (ALT/SGPT) 58, Alkaline Phosphatase 135H, C-Reactive Protein, Quantitative 0.7, Pro-B-Type Natriuretic Peptide 317H, Total Protein 7.8, Albumin 2.9L, Globulin 4.9, Albumin/Globulin Ratio 0.6L Height (Feet): 5 Height (Inches): 4.00 Weight (Pounds): 179 General Appearance: no apparent distress EENT: normal ENT inspection Neck: supple Cardiovascular: normal rate Respiratory/Chest: decreased breath sounds Abdomen: hypoactive bowel sounds Extremities: non-tender Assessment/Plan Problem List: (1) DMII (diabetes mellitus, type 2) ICD Codes: E11.9 - Type 2 diabetes mellitus without complications SNOMED: 96189753 (2) UTI (urinary tract infection) ICD Codes: N39.0 - Urinary tract infection, site not specified SNOMED: 20378438 (3) Iron deficiency anemia ICD Codes: D50.9 - Iron deficiency anemia, unspecified SNOMED: 12023001 (4) Hiatal hernia ICD Codes: K44.9 - Diaphragmatic hernia without obstruction or gangrene SNOMED: 20434706 (5) Abdominal pain ICD Codes: R10.9 - Unspecified abdominal pain SNOMED: 17850051 Status: progressing Assessment/Plan: iv iron fu H&H fu stool ob patient refusing EGD and colonoscopy fu hepatitis panel fu abd us>>>> cirrhosis Charlie Kulkarni MD Jul 08, 2020 08:32
--- NOTE | 2020-07-08 11:21 | Pulmonology Progress Note ---
Subjective ROS Limited/Unobtainable: Yes Interval Events: None new reported Constitutional: Denies: fever HEENT: Repors: no symptoms Respiratory: Reports: shortness of breath Cardiovascular: Reports: no symptoms Gastrointestinal/Abdominal: Reports: no symptoms Allergies: Coded Allergies: No Known Allergies (Unverified , 02/22/15) Objective Last 24 Hour Vital Signs Date Time Temp Pulse Resp B/P (MAP) Pulse Ox O2 Delivery O2 Flow Rate FiO2 07/08/20 08:23 97 163/80 07/08/20 08:23 163/80 07/08/20 08:00 97.9 97 20 163/80 (107) 98 07/08/20 04:00 97.6 90 16 158/73 (101) 94 07/08/20 04:00 84 07/08/20 00:00 98.2 92 16 138/75 (96) 94 07/08/20 00:00 89 07/07/20 21:00 Nasal Cannula 1.0 07/07/20 20:00 97.5 95 16 159/67 (97) 93 07/07/20 20:00 110 07/07/20 16:19 132/87 07/07/20 16:00 85 07/07/20 16:00 98.9 99 20 132/87 (102) 98 07/07/20 12:00 97.0 86 20 141/62 (88) 94 07/07/20 12:00 86 Intake and Output 07/07/20 07/08/20 19:00 07:00 Intake Total 720 ml 120 ml Balance 720 ml 120 ml Intake Oral 720 ml 120 ml # Voids 4 3 # Bowel Movements 1 General Appearance: no acute distress HEENT: atraumatic Respiratory: lungs clear Cardiovascular: normal rate, regular rhythm Abdomen: tender - RUQ Laboratory Tests 07/08/20 05:00: White Blood Count 9.4, Red Blood Count 4.02L, Hemoglobin 8.8L, Hematocrit 29.7L, Mean Corpuscular Volume 74L, Mean Corpuscular Hemoglobin 21.8L, Mean Corpuscular Hemoglobin Concent 29.5L, Red Cell Distribution Width 18.6H, Platelet Count 280, Mean Platelet Volume 6.5, Neutrophils (%) (Auto) 56.8, Lymphocytes (%) (Auto) 29.1, Monocytes (%) (Auto) 9.5, Eosinophils (%) (Auto) 2.7, Basophils (%) (Auto) 1.9, Sodium Level 142, Potassium Level 3.9, Chloride Level 107, Carbon Dioxide Level 28, Anion Gap 7, Blood Urea Nitrogen 7, Creatinine 0.9, Estimat Glomerular Filtration Rate > 60, Glucose Level 114H, Uric Acid 6.3, Calcium Level 9.5, Phosphorus Level 3.2, Magnesium Level 1.6L, Total Bilirubin 0.5, Aspartate Amino Transf (AST/SGOT) 80H, Alanine Aminotransferase (ALT/SGPT) 58, Alkaline Phosphatase 135H, C-Reactive Protein, Quantitative 0.7, Pro-B-Type Natriuretic Peptide 317H, Total Protein 7.8, Albumin 2.9L, Globulin 4.9, Albumin/Globulin Ratio 0.6L Current Medications Medications (Trade) Dose Ordered Sig/Yasmany Route PRN Reason Start Time Stop Time Status Last Admin Dose Admin Acetaminophen (Tylenol) 500 mg Q6H PRN ORAL Mild Pain (Pain Scale 1-3) 07/05/20 20:30 08/04/20 20:29 07/08/20 00:27 Amlodipine Besylate (Norvasc) 10 mg DAILY ORAL 07/07/20 09:00 08/06/20 08:59 07/08/20 08:23 Clonidine HCl (Catapres Tab) 0.1 mg Q6H PRN ORAL For High Blood Pressure 07/02/20 02:15 09/30/20 02:14 Docusate Sodium (Colace) 100 mg THREE TIMES A DAY ORAL 07/02/20 18:00 08/01/20 17:59 07/08/20 08:23 Iron Sucrose 100 mg/Sodium Chloride 60 ml @ 240 mls/hr BEDTIME IVPB 07/04/20 21:00 07/08/20 21:14 07/07/20 20:41 Lisinopril (ZestriL) 10 mg BID ORAL 07/06/20 18:00 08/03/20 08:59 07/08/20 08:23 Pantoprazole (Protonix) 40 mg EVERY 12 HOURS ORAL 07/02/20 21:00 08/01/20 20:59 07/08/20 08:23 Polyethylene Glycol (Miralax) 17 gm BEDTIME ORAL 07/05/20 21:00 08/04/20 20:59 07/07/20 20:44 Assessment/Plan Assessment/Plan 1. UTI - on Abx - f/u UCx negative (07/01) 2. Hypoxemia -Saturations improved - No indication for steroid at this time - Serial trops neg and 2D Echo EF 55-60% 3. Hypertensive urgency - now BP better controlled 4. COVID-19 negative (07/01) 5. DVT ppx - on SCD 6. Left base atelectasis on chest CT - Normoxemia on low flow oxygen/RA 7. ? Liver cirrhosis - GI following - Abd US, hep panel Sebastien Chaney MD Jul 08, 2020 11:21
[2020-07-08 12:00] VITALS: BP 141/61
--- NOTE | 2020-07-08 13:04 | Infectious Diseases Prog Note ---
Assessment/Plan Assessment/Plan IMPRESSION: 1. Atelectasis versus pneumonia in the left lung base. 2. Pyuria and bacteriuria, may have UTI, 3. Diabetes mellitus. 4. Hypertensive, accelerated 5. Cirrhosis. 6. Anemia. 7. s/p cholecystectomy RECOMMENDATION: Observe off antibiotic Will f/u hepatitis panel Subjective ROS Limited/Unobtainable: Yes Constitutional: Reports: anorexia Respiratory: Reports: no symptoms Gastrointestinal/Abdominal: Reports: no symptoms Allergies: Coded Allergies: No Known Allergies (Unverified , 02/22/15) Objective Last 24 Hour Vital Signs Date Time Temp Pulse Resp B/P (MAP) Pulse Ox O2 Delivery O2 Flow Rate FiO2 07/08/20 12:00 97.9 89 20 141/61 (87) 99 07/08/20 12:00 90 07/08/20 09:00 Nasal Cannula 2.0 07/08/20 08:23 97 163/80 07/08/20 08:23 163/80 07/08/20 08:00 97.9 97 20 163/80 (107) 98 07/08/20 08:00 91 07/08/20 04:00 97.6 90 16 158/73 (101) 94 07/08/20 04:00 84 07/08/20 00:00 98.2 92 16 138/75 (96) 94 07/08/20 00:00 89 07/07/20 21:00 Nasal Cannula 1.0 07/07/20 20:00 97.5 95 16 159/67 (97) 93 07/07/20 20:00 110 07/07/20 16:19 132/87 07/07/20 16:00 85 07/07/20 16:00 98.9 99 20 132/87 (102) 98 Height (Feet): 5 Height (Inches): 4.00 Weight (Pounds): 179 General Appearance: no acute distress HEENT: mucous membranes moist Respiratory/Chest: lungs clear Cardiovascular: normal rate Abdomen: soft, non tender Extremities: no edema Neurologic/Psychiatric: alert, responsive Laboratory Tests Test 07/08/20 05:00 White Blood Count 9.4 K/UL (4.8-10.8) Red Blood Count 4.02 M/UL (4.20-5.40) L Hemoglobin 8.8 G/DL (12.0-16.0) L Hematocrit 29.7 % (37.0-47.0) L Mean Corpuscular Volume 74 FL (80-99) L Mean Corpuscular Hemoglobin 21.8 PG (27.0-31.0) L Mean Corpuscular Hemoglobin Concent 29.5 G/DL (32.0-36.0) L Red Cell Distribution Width 18.6 % (11.6-14.8) H Platelet Count 280 K/UL (150-450) Mean Platelet Volume 6.5 FL (6.5-10.1) Neutrophils (%) (Auto) 56.8 % (45.0-75.0) Lymphocytes (%) (Auto) 29.1 % (20.0-45.0) Monocytes (%) (Auto) 9.5 % (1.0-10.0) Eosinophils (%) (Auto) 2.7 % (0.0-3.0) Basophils (%) (Auto) 1.9 % (0.0-2.0) Sodium Level 142 MMOL/L (136-145) Potassium Level 3.9 MMOL/L (3.5-5.1) Chloride Level 107 MMOL/L (98-107) Carbon Dioxide Level 28 MMOL/L (21-32) Anion Gap 7 mmol/L (5-15) Blood Urea Nitrogen 7 mg/dL (7-18) Creatinine 0.9 MG/DL (0.55-1.30) Estimat Glomerular Filtration Rate > 60 mL/min (>60) Glucose Level 114 MG/DL (74-106) H Uric Acid 6.3 MG/DL (2.6-7.2) Calcium Level 9.5 MG/DL (8.5-10.1) Phosphorus Level 3.2 MG/DL (2.5-4.9) Magnesium Level 1.6 MG/DL (1.8-2.4) L Total Bilirubin 0.5 MG/DL (0.2-1.0) Aspartate Amino Transf (AST/SGOT) 80 U/L (15-37) H Alanine Aminotransferase (ALT/SGPT) 58 U/L (12-78) Alkaline Phosphatase 135 U/L (46-116) H C-Reactive Protein, Quantitative 0.7 mg/dL (0.00-0.90) Pro-B-Type Natriuretic Peptide 317 pg/mL (0-125) H Total Protein 7.8 G/DL (6.4-8.2) Albumin 2.9 G/DL (3.4-5.0) L Globulin 4.9 g/dL Albumin/Globulin Ratio 0.6 (1.0-2.7) L Current Medications Medications (Trade) Dose Ordered Sig/Yasmany Route PRN Reason Start Time Stop Time Status Last Admin Dose Admin Acetaminophen (Tylenol) 500 mg Q6H PRN ORAL Mild Pain (Pain Scale 1-3) 07/05/20 20:30 08/04/20 20:29 07/08/20 00:27 Amlodipine Besylate (Norvasc) 10 mg DAILY ORAL 07/07/20 09:00 08/06/20 08:59 07/08/20 08:23 Clonidine HCl (Catapres Tab) 0.1 mg Q6H PRN ORAL For High Blood Pressure 07/02/20 02:15 09/30/20 02:14 Docusate Sodium (Colace) 100 mg THREE TIMES A DAY ORAL 07/02/20 18:00 08/01/20 17:59 07/08/20 08:23 Iron Sucrose 100 mg/Sodium Chloride 60 ml @ 240 mls/hr BEDTIME IVPB 07/04/20 21:00 07/08/20 21:14 07/07/20 20:41 Lisinopril (ZestriL) 10 mg BID ORAL 07/06/20 18:00 08/03/20 08:59 07/08/20 08:23 Pantoprazole (Protonix) 40 mg EVERY 12 HOURS ORAL 07/02/20 21:00 08/01/20 20:59 07/08/20 08:23 Polyethylene Glycol (Miralax) 17 gm BEDTIME ORAL 07/05/20 21:00 08/04/20 20:59 07/07/20 20:44 Keanu Goodson MD Jul 08, 2020 13:04
--- NOTE | 2020-07-08 13:40 | Cardiac Electrophysiology PN ---
Assessment/Plan Assessment/Plan 1. Shortness of breath. EKG shows sinus rhythm with nonspecific ST-T wave abnormalities. Ruled out [place] protocol. EF 65% on echocardiogram. 2. Accelerated hypertension. On Norvasc 5 po bid and Lisinopril 10 daily On p.r.n. clonidine. 3. Shortness of breath and pneumonia. Fu by Dr. Chaney. 4. Left base atelectasis on chest CT and possible pneumonia DW RN DC pending Subjective Subjective No CP or SOB. Family refusing SNIF placement and DC home with is pending. On 2 liter nasal cannula Objective Last 24 Hour Vital Signs Date Time Temp Pulse Resp B/P (MAP) Pulse Ox O2 Delivery O2 Flow Rate FiO2 07/08/20 12:00 97.9 89 20 141/61 (87) 99 07/08/20 12:00 90 07/08/20 09:00 Nasal Cannula 2.0 07/08/20 08:23 97 163/80 07/08/20 08:23 163/80 07/08/20 08:00 97.9 97 20 163/80 (107) 98 07/08/20 08:00 91 07/08/20 04:00 97.6 90 16 158/73 (101) 94 07/08/20 04:00 84 07/08/20 00:00 98.2 92 16 138/75 (96) 94 07/08/20 00:00 89 07/07/20 21:00 Nasal Cannula 1.0 07/07/20 20:00 97.5 95 16 159/67 (97) 93 07/07/20 20:00 110 07/07/20 16:19 132/87 07/07/20 16:00 85 07/07/20 16:00 98.9 99 20 132/87 (102) 98 Intake and Output 0 07/07/20 07/08/20 19:00 07:00 Intake Total 720 ml 120 ml Balance 720 ml 120 ml Intake Oral 720 ml 120 ml # Voids 4 3 # Bowel Movements 1 Laboratory Tests Test 07/08/20 05:00 White Blood Count 9.4 K/UL (4.8-10.8) Red Blood Count 4.02 M/UL (4.20-5.40) L Hemoglobin 8.8 G/DL (12.0-16.0) L Hematocrit 29.7 % (37.0-47.0) L Mean Corpuscular Volume 74 FL (80-99) L Mean Corpuscular Hemoglobin 21.8 PG (27.0-31.0) L Mean Corpuscular Hemoglobin Concent 29.5 G/DL (32.0-36.0) L Red Cell Distribution Width 18.6 % (11.6-14.8) H Platelet Count 280 K/UL (150-450) Mean Platelet Volume 6.5 FL (6.5-10.1) Neutrophils (%) (Auto) 56.8 % (45.0-75.0) Lymphocytes (%) (Auto) 29.1 % (20.0-45.0) Monocytes (%) (Auto) 9.5 % (1.0-10.0) Eosinophils (%) (Auto) 2.7 % (0.0-3.0) Basophils (%) (Auto) 1.9 % (0.0-2.0) Sodium Level 142 MMOL/L (136-145) Potassium Level 3.9 MMOL/L (3.5-5.1) Chloride Level 107 MMOL/L (98-107) Carbon Dioxide Level 28 MMOL/L (21-32) Anion Gap 7 mmol/L (5-15) Blood Urea Nitrogen 7 mg/dL (7-18) Creatinine 0.9 MG/DL (0.55-1.30) Estimat Glomerular Filtration Rate > 60 mL/min (>60) Glucose Level 114 MG/DL (74-106) H Uric Acid 6.3 MG/DL (2.6-7.2) Calcium Level 9.5 MG/DL (8.5-10.1) Phosphorus Level 3.2 MG/DL (2.5-4.9) Magnesium Level 1.6 MG/DL (1.8-2.4) L Total Bilirubin 0.5 MG/DL (0.2-1.0) Aspartate Amino Transf (AST/SGOT) 80 U/L (15-37) H Alanine Aminotransferase (ALT/SGPT) 58 U/L (12-78) Alkaline Phosphatase 135 U/L (46-116) H C-Reactive Protein, Quantitative 0.7 mg/dL (0.00-0.90) Pro-B-Type Natriuretic Peptide 317 pg/mL (0-125) H Total Protein 7.8 G/DL (6.4-8.2) Albumin 2.9 G/DL (3.4-5.0) L Globulin 4.9 g/dL Albumin/Globulin Ratio 0.6 (1.0-2.7) L Objective HEAD AND NECK: No JVD. LUNGS: Clear. CARDIOVASCULAR: Regular S1 and S2 with no gallop or murmur. ABDOMEN: Soft. EXTREMITIES: 1+ pitting edema. Jude Stone MD Jul 08, 2020 13:40
--- NOTE | 2020-07-08 14:37 | Nephrology Progress Note ---
Assessment/Plan Problem List: (1) Iron deficiency anemia (2) Hypertensive urgency (3) UTI (urinary tract infection) (4) DMII (diabetes mellitus, type 2) Assessment: Hemoglobin A1c 7.1 Assessment Hypertensive urgency Anemia, low MCV Weakness Hiatus hernia UTI DM Plan July 08: Labs reviewed. Low magnesium addressed. Medication list reviewed. Continue per consultants. July 07: No new labs drawn today. Blood pressure stable. Will check lab tomorrow. Medication list reviewed. Continue per consultants. July 06: Labs reviewed. Renal parameters stable. Blood pressure is stable. Medication list reviewed. Blood pressure medication adjusted July 05: Labs reviewed. Blood pressure in check. Continue per consultants. Medication list reviewed. July 04: No blood drawn today. Blood pressure better controlled. Will check lab tomorrow. Continue to rest. July 03: Blood pressure needs better control, hence lisinopril added to Norvasc. IV iron initiated for low iron anemia. Continue per consultants. Stable from renal standpoint of view. Antibiotic for UTI in process. Subjective ROS Limited/Unobtainable: No Objective Objective Last 24 Hour Vital Signs Date Time Temp Pulse Resp B/P (MAP) Pulse Ox O2 Delivery O2 Flow Rate FiO2 07/08/20 12:00 97.9 89 20 141/61 (87) 99 07/08/20 12:00 90 07/08/20 09:00 Nasal Cannula 2.0 07/08/20 08:23 97 163/80 07/08/20 08:23 163/80 07/08/20 08:00 97.9 97 20 163/80 (107) 98 07/08/20 08:00 91 07/08/20 04:00 97.6 90 16 158/73 (101) 94 07/08/20 04:00 84 07/08/20 00:00 98.2 92 16 138/75 (96) 94 07/08/20 00:00 89 07/07/20 21:00 Nasal Cannula 1.0 07/07/20 20:00 97.5 95 16 159/67 (97) 93 07/07/20 20:00 110 07/07/20 16:19 132/87 07/07/20 16:00 85 07/07/20 16:00 98.9 99 20 132/87 (102) 98 Intake and Output 07/07/20 07/08/20 19:00 07:00 Intake Total 720 ml 120 ml Balance 720 ml 120 ml Intake Oral 720 ml 120 ml # Voids 4 3 # Bowel Movements 1 Current Medications Medications (Trade) Dose Ordered Sig/Yasmany Route PRN Reason Start Time Stop Time Status Last Admin Dose Admin Acetaminophen (Tylenol) 500 mg Q6H PRN ORAL Mild Pain (Pain Scale 1-3) 07/05/20 20:30 08/04/20 20:29 07/08/20 00:27 Amlodipine Besylate (Norvasc) 10 mg DAILY ORAL 07/07/20 09:00 08/06/20 08:59 07/08/20 08:23 Clonidine HCl (Catapres Tab) 0.1 mg Q6H PRN ORAL For High Blood Pressure 07/02/20 02:15 09/30/20 02:14 Docusate Sodium (Colace) 100 mg THREE TIMES A DAY ORAL 07/02/20 18:00 08/01/20 17:59 07/08/20 08:23 Iron Sucrose 100 mg/Sodium Chloride 60 ml @ 240 mls/hr BEDTIME IVPB 07/04/20 21:00 07/08/20 21:14 07/07/20 20:41 Lisinopril (ZestriL) 10 mg BID ORAL 07/06/20 18:00 08/03/20 08:59 07/08/20 08:23 Pantoprazole (Protonix) 40 mg EVERY 12 HOURS ORAL 07/02/20 21:00 08/01/20 20:59 07/08/20 08:23 Polyethylene Glycol (Miralax) 17 gm BEDTIME ORAL 07/05/20 21:00 08/04/20 20:59 07/07/20 20:44 Laboratory Tests 07/08/20 05:00: White Blood Count 9.4, Red Blood Count 4.02L, Hemoglobin 8.8L, Hematocrit 29.7L, Mean Corpuscular Volume 74L, Mean Corpuscular Hemoglobin 21.8L, Mean Corpuscular Hemoglobin Concent 29.5L, Red Cell Distribution Width 18.6H, Platelet Count 280, Mean Platelet Volume 6.5, Neutrophils (%) (Auto) 56.8, Lymphocytes (%) (Auto) 29.1, Monocytes (%) (Auto) 9.5, Eosinophils (%) (Auto) 2.7, Basophils (%) (Auto) 1.9, Sodium Level 142, Potassium Level 3.9, Chloride Level 107, Carbon Dioxide Level 28, Anion Gap 7, Blood Urea Nitrogen 7, Creatinine 0.9, Estimat Glomerular Filtration Rate > 60, Glucose Level 114H, Uric Acid 6.3, Calcium Level 9.5, Phosphorus Level 3.2, Magnesium Level 1.6L, Total Bilirubin 0.5, Aspartate Amino Transf (AST/SGOT) 80H, Alanine Aminotransferase (ALT/SGPT) 58, Alkaline Phospha tase 135H, C-Reactive Protein, Quantitative 0.7, Pro-B-Type Natriuretic Peptide 317H, Total Protein 7.8, Albumin 2.9L, Globulin 4.9, Albumin/Globulin Ratio 0.6L Height (Feet): 5 Height (Inches): 4.00 Weight (Pounds): 179 General Appearance: no apparent distress Cardiovascular: tachycardia Respiratory/Chest: decreased breath sounds Abdomen: distended Gordon Pritchett MD Jul 08, 2020 14:37
[2020-07-08 16:00] VITALS: BP 152/67
--- NOTE | 2020-07-08 18:36 | NUR ---
Spoke with daughter Ayanna update given on patient. Explained to daughter that patient has not discharged and that discharge planning is in place for her to have a smooth transition from the hospital to the home. Explained that home health is being set up for the patient once she is discharged but setting up home health does not mean that patient has a discharge order. Daughter verbalized understanding.
[2020-07-08 20:00] VITALS: BP 142/57
[2020-07-08] MEDS: Iron Sucrose 100 MG in NS 55 ML IVPB SCH (20:36)
[2020-07-08] MEDS: Miralax 17gm pkt ORAL SCH (20:37)
--- NOTE | 2020-07-08 21:11 | General Progress Note ---
Subjective ROS Limited/Unobtainable: Yes Allergies: Coded Allergies: No Known Allergies (Unverified , 02/22/15) Objective Last 24 Hour Vital Signs Date Time Temp Pulse Resp B/P (MAP) Pulse Ox O2 Delivery O2 Flow Rate FiO2 07/08/20 17:44 152/67 07/08/20 16:00 97.9 93 20 152/67 (95) 98 07/08/20 16:00 104 07/08/20 12:00 97.9 89 20 141/61 (87) 99 07/08/20 12:00 90 07/08/20 09:00 Nasal Cannula 2.0 07/08/20 08:23 97 163/80 07/08/20 08:23 163/80 07/08/20 08:00 97.9 97 20 163/80 (107) 98 07/08/20 08:00 91 07/08/20 04:00 97.6 90 16 158/73 (101) 94 07/08/20 04:00 84 07/08/20 00:00 98.2 92 16 138/75 (96) 94 07/08/20 00:00 89 Intake and Output 07/07/20 07/08/20 19:00 07:00 Intake Total 720 ml 120 ml Balance 720 ml 120 ml Intake Oral 720 ml 120 ml # Voids 4 3 # Bowel Movements 1 Laboratory Tests 07/08/20 05:00: White Blood Count 9.4, Red Blood Count 4.02L, Hemoglobin 8.8L, Hematocrit 29.7L, Mean Corpuscular Volume 74L, Mean Corpuscular Hemoglobin 21.8L, Mean Corpuscular Hemoglobin Concent 29.5L, Red Cell Distribution Width 18.6H, Platelet Count 280, Mean Platelet Volume 6.5, Neutrophils (%) (Auto) 56.8, Lymphocytes (%) (Auto) 29.1, Monocytes (%) (Auto) 9.5, Eosinophils (%) (Auto) 2.7, Basophils (%) (Auto) 1.9, Sodium Level 142, Potassium Level 3.9, Chloride Level 107, Carbon Dioxide Level 28, Anion Gap 7, Blood Urea Nitrogen 7, Creatinine 0.9, Estimat Glomerular Filtration Rate > 60, Glucose Level 114H, Uric Acid 6.3, Calcium Level 9.5, Phosphorus Level 3.2, Magnesium Level 1.6L, Total Bilirubin 0.5, Aspartate Amino Transf (AST/SGOT) 80H, Alanine Aminotransferase (ALT/SGPT) 58, Alkaline Phosphatase 135H, C-Reactive Protein, Quantitative 0.7, Pro-B-Type Natriuretic Peptide 317H, Total Protein 7.8, Albumin 2.9L, Globulin 4.9, Albumin/Globulin Ratio 0.6L Height (Feet): 5 Height (Inches): 4.00 Weight (Pounds): 179 Assessment/Plan Problem List: (1) Weakness ICD Codes: R53.1 - Weakness SNOMED: 04092973 (2) Hypertensive urgency ICD Codes: I16.0 - Hypertensive urgency SNOMED: 872739569 (3) UTI (urinary tract infection) ICD Codes: N39.0 - Urinary tract infection, site not specified SNOMED: 53899150 (4) DMII (diabetes mellitus, type 2) ICD Codes: E11.9 - Type 2 diabetes mellitus without complications SNOMED: 75675838 (5) Abdominal pain ICD Codes: R10.9 - Unspecified abdominal pain SNOMED: 56023246 (6) Hiatal hernia ICD Codes: K44.9 - Diaphragmatic hernia without obstruction or gangrene SNOMED: 22151294 Status: progressing Assessment/Plan: niddm needs iv antibiotic refused snf resp insuff pna improving weak and debilitated Swathi Washington MD Jul 08, 2020 21:11
--- NOTE | 2020-07-08 22:30 | NUR ---
Assumed pt's care at 1900 from [facility] Delgado. Pt is alert & verbal, non honduran speaking. No acute distress noted, respirations even and unlabored, remains on o2 @2LPM via NC. No signs of hypo/hyperglycemia noted. Able to make needs known, refused SCD's, pt is ambulatory, gait is unsteady. Safety and comfort measures maintained, call light within reach.
[2020-07-09] VITALS (7 sets, daily range): BP systolic 134–145; BP diastolic 53–86
[2020-07-09] MEDS: Docusate 100mg cap ORAL SCH ×3 (08:45→18:00)
[2020-07-09] MEDS: Lisinopril 10mg tab ORAL SCH ×2 (08:45→18:00)
--- NOTE | 2020-07-09 09:25 | Pulmonology Progress Note ---
Subjective ROS Limited/Unobtainable: Yes Interval Events: None new reported Constitutional: Reports: anorexia HEENT: Repors: no symptoms Respiratory: Reports: shortness of breath Cardiovascular: Reports: no symptoms Gastrointestinal/Abdominal: Reports: no symptoms Allergies: Coded Allergies: No Known Allergies (Unverified , 02/22/15) Objective Last 24 Hour Vital Signs Date Time Temp Pulse Resp B/P (MAP) Pulse Ox O2 Delivery O2 Flow Rate FiO2 07/09/20 08:45 91 145/70 07/09/20 08:45 145/70 07/09/20 08:00 91 07/09/20 08:00 96.6 59 20 145/70 (95) 96 07/09/20 04:26 98.1 79 18 137/83 (101) 96 07/09/20 04:00 78 07/09/20 00:30 96 07/09/20 00:30 98.1 79 20 134/86 (102) 97 07/08/20 21:00 Nasal Cannula 2.0 07/08/20 20:00 83 07/08/20 20:00 97.2 87 20 142/57 (85) 99 07/08/20 17:44 152/67 07/08/20 16:00 97.9 93 20 152/67 (95) 98 07/08/20 16:00 104 07/08/20 12:00 97.9 89 20 141/61 (87) 99 07/08/20 12:00 90 Intake and Output 07/08/20 07/09/20 19:00 07:00 Intake Total 160 ml Balance 160 ml Intake Oral 160 ml # Voids 3 3 # Bowel Movements 2 General Appearance: no acute distress HEENT: atraumatic Respiratory: lungs clear Cardiovascular: normal rate, regular rhythm Abdomen: tender - RUQ Current Medications Medications (Trade) Dose Ordered Sig/Yasmany Route PRN Reason Start Time Stop Time Status Last Admin Dose Admin Acetaminophen (Tylenol) 500 mg Q6H PRN ORAL Mild Pain (Pain Scale 1-3) 07/05/20 20:30 08/04/20 20:29 07/08/20 00:27 Amlodipine Besylate (Norvasc) 10 mg DAILY ORAL 07/07/20 09:00 08/06/20 08:59 07/09/20 08:45 Clonidine HCl (Catapres Tab) 0.1 mg Q6H PRN ORAL For High Blood Pressure 07/02/20 02:15 09/30/20 02:14 Docusate Sodium (Colace) 100 mg THREE TIMES A DAY ORAL 07/02/20 18:00 08/01/20 17:59 07/08/20 08:23 Lisinopril (ZestriL) 10 mg BID ORAL 07/06/20 18:00 08/03/20 08:59 07/09/20 08:45 Pantoprazole (Protonix) 40 mg EVERY 12 HOURS ORAL 07/02/20 21:00 08/01/20 20:59 07/09/20 08:45 Polyethylene Glycol (Miralax) 17 gm BEDTIME ORAL 07/05/20 21:00 08/04/20 20:59 07/07/20 20:44 Assessment/Plan Assessment/Plan 1. UTI - on Abx - f/u UCx negative (07/01) 2. Hypoxemia -Saturations improved - No indication for steroid at this time - Serial trops neg and 2D Echo EF 55-60% 3. Hypertensive urgency - now BP better controlled 4. COVID-19 negative (07/01) 5. DVT ppx - on SCD 6. Left base atelectasis on chest CT - Normoxemia on low flow oxygen/RA 7. ? Liver cirrhosis - GI following - Abd US, hep panel Sebastien Chaney MD Jul 09, 2020 09:25
--- NOTE | 2020-07-09 09:33 | General Progress Note ---
Subjective ROS Limited/Unobtainable: No Allergies: Coded Allergies: No Known Allergies (Unverified , 02/22/15) Objective Last 24 Hour Vital Signs Date Time Temp Pulse Resp B/P (MAP) Pulse Ox O2 Delivery O2 Flow Rate FiO2 07/09/20 08:45 91 145/70 07/09/20 08:45 145/70 07/09/20 08:00 91 07/09/20 08:00 96.6 59 20 145/70 (95) 96 07/09/20 04:26 98.1 79 18 137/83 (101) 96 07/09/20 04:00 78 07/09/20 00:30 96 07/09/20 00:30 98.1 79 20 134/86 (102) 97 07/08/20 21:00 Nasal Cannula 2.0 07/08/20 20:00 83 07/08/20 20:00 97.2 87 20 142/57 (85) 99 07/08/20 17:44 152/67 07/08/20 16:00 97.9 93 20 152/67 (95) 98 07/08/20 16:00 104 07/08/20 12:00 97.9 89 20 141/61 (87) 99 07/08/20 12:00 90 Intake and Output 07/08/20 07/09/20 19:00 07:00 Intake Total 160 ml Balance 160 ml Intake Oral 160 ml # Voids 3 3 # Bowel Movements 2 Height (Feet): 5 Height (Inches): 4.00 Weight (Pounds): 179 General Appearance: no apparent distress EENT: PERRL/EOMI Neck: supple Cardiovascular: normal rate Respiratory/Chest: decreased breath sounds Abdomen: hypoactive bowel sounds Extremities: non-tender Assessment/Plan Problem List: (1) DMII (diabetes mellitus, type 2) ICD Codes: E11.9 - Type 2 diabetes mellitus without complications SNOMED: 96784514 (2) UTI (urinary tract infection) ICD Codes: N39.0 - Urinary tract infection, site not specified SNOMED: 42487923 (3) Iron deficiency anemia ICD Codes: D50.9 - Iron deficiency anemia, unspecified SNOMED: 92367204 (4) Hiatal hernia ICD Codes: K44.9 - Diaphragmatic hernia without obstruction or gangrene SNOMED: 00861209 (5) Abdominal pain ICD Codes: R10.9 - Unspecified abdominal pain SNOMED: 90954265 Status: progressing Assessment/Plan: iv iron fu H&H fu stool ob patient refusing EGD and colonoscopy fu hepatitis panel fu abd us>>>> cirrhosis Charlie Kulkarni MD Jul 09, 2020 09:33
--- NOTE | 2020-07-09 12:11 | NUR ---
CASE MANAGEMENT:REVIEW 07/09/20 SI: HTN URGENCY. UTI. WEAKNESS 96.6 59 20 145/70 96% ON 2L/NC H/H-8.8/29.7 MAG-1.6 IS: NORVASC PO QD LISINOPRIL PO BID PROTONIX PO Q12 COLACE PO TID : TELEMETRY STATUS DCP: FROM HOME.....REFUSING SNF PLACEMENT
--- NOTE | 2020-07-09 12:24 | NUR ---
Call placed to Dr. Washington due to patient not having any labs drawn for today. Orders obtained.
--- NOTE | 2020-07-09 14:34 | NUR ---
Patient has not had IV access upon entering shift this AM. Attempted to obtain an IV x 2 attempts without any success. call placed to Dr. Keenan to notify. awaiting call back.
[2020-07-09 14:53] LABS: BASOPHILS % (AUTO) 1.6 % (0.0-2.0); EOSINOPHILS % (AUTO) 1.2 % (0.0-3.0); HEMOGLOBIN 9.4 G/DL (12.0-16.0); LYMPHOCYTES % (AUTO) 12.9 % (20.0-45.0); MEAN CORPUSCULAR VOLUME 73 FL (80-99); MONOCYTES % (AUTO) 8.4 % (1.0-10.0); NEUTROPHILS % (AUTO) 75.9 % (45.0-75.0); PLATELET COUNT 260 K/UL (150-450); RED BLOOD COUNT 4.13 M/UL (4.20-5.40); RED CELL DISTRIBUTION WIDTH 22.3 % (11.6-14.8); WHITE BLOOD COUNT 11.3 K/UL (4.8-10.8)
[2020-07-09 15:04] LABS: CALCIUM 9.2 MG/DL (8.5-10.1)
[2020-07-09 15:08] LABS: ALBUMIN/GLOBULIN RATIO 0.6 (1.0-2.7); BILIRUBIN,TOTAL 0.5 MG/DL (0.2-1.0)
--- NOTE | 2020-07-09 15:50 | General Progress Note ---
Subjective ROS Limited/Unobtainable: Yes Allergies: Coded Allergies: No Known Allergies (Unverified , 02/22/15) Objective Last 24 Hour Vital Signs Date Time Temp Pulse Resp B/P (MAP) Pulse Ox O2 Delivery O2 Flow Rate FiO2 07/09/20 12:00 99 07/09/20 12:00 97.8 69 19 140/61 (87) 96 07/09/20 09:00 Nasal Cannula 2.0 07/09/20 08:45 91 145/70 07/09/20 08:45 145/70 07/09/20 08:00 91 07/09/20 08:00 96.6 59 20 145/70 (95) 96 07/09/20 04:26 98.1 79 18 137/83 (101) 96 07/09/20 04:00 78 07/09/20 00:30 96 07/09/20 00:30 98.1 79 20 134/86 (102) 97 07/08/20 21:00 Nasal Cannula 2.0 07/08/20 20:00 83 07/08/20 20:00 97.2 87 20 142/57 (85) 99 07/08/20 17:44 152/67 07/08/20 16:00 97.9 93 20 152/67 (95) 98 07/08/20 16:00 104 Intake and Output 07/08/20 07/09/20 19:00 07:00 Intake Total 160 ml Balance 160 ml Intake Oral 160 ml # Voids 3 3 # Bowel Movements 2 Laboratory Tests 07/09/20 14:40: White Blood Count 11.3H, Red Blood Count 4.13L, Hemoglobin 9.4L, Hematocrit 30.0L, Mean Corpuscular Volume 73L, Mean Corpuscular Hemoglobin 22.8L, Mean Corpuscular Hemoglobin Concent 31.4L, Red Cell Distribution Width 22.3H, P latelet Count 260, Mean Platelet Volume 6.5, Neutrophils (%) (Auto) 75.9H, Lymphocytes (%) (Auto) 12.9L, Monocytes (%) (Auto) 8.4, Eosinophils (%) (Auto) 1.2, Basophils (%) (Auto) 1.6, Sodium Level 143, Potassium Level 4.0, Chloride Level 107, Carbon Dioxide Level 30, Anion Gap 6, Blood Urea Nitrogen 8, Creatinine 1.0, Estimat Glomerular Filtration Rate 53.2, Glucose Level 126H, Calcium Level 9.2, Magnesium Level 1.6L, Total Bilirubin 0.5, Aspartate Amino Transf (AST/SGOT) 71H, Alanine Aminotransferase (ALT/SGPT) 53, Alkaline Phosphatase 139H, Total Protein 8.1, Albumin 3.0L, Globulin 5.1, Albumin/Globu yang Ratio 0.6L Height (Feet): 5 Height (Inches): 4.00 Weight (Pounds): 179 Assessment/Plan Problem List: (1) Weakness ICD Codes: R53.1 - Weakness SNOMED: 14238571 (2) Hypertensive urgency ICD Codes: I16.0 - Hypertensive urgency SNOMED: 547706146 (3) UTI (urinary tract infection) ICD Codes: N39.0 - Urinary tract infection, site not specified SNOMED: 83039762 (4) DMII (diabetes mellitus, type 2) ICD Codes: E11.9 - Type 2 diabetes mellitus without complications SNOMED: 81757190 (5) Abdominal pain ICD Codes: R10.9 - Unspecified abdominal pain SNOMED: 81587852 (6) Hiatal hernia ICD Codes: K44.9 - Diaphragmatic hernia without obstruction or gangrene SNOMED: 25918718 Status: progressing Assessment/Plan: dc in am afebrile pna improving weak and debilitated Swathi Washington MD Jul 09, 2020 15:49
--- NOTE | 2020-07-09 16:48 | Nephrology Progress Note ---
Assessment/Plan Problem List: (1) Iron deficiency anemia (2) Hypertensive urgency (3) UTI (urinary tract infection) (4) DMII (diabetes mellitus, type 2) Assessment: Hemoglobin A1c 7.1 Assessment Hypertensive urgency Anemia, low MCV Weakness Hiatus hernia UTI DM Plan July 09: Labs reviewed. Abnormal electrolytes addressed. Continue per consultants. July 08: Labs reviewed. Low magnesium addressed. Medication list reviewed. Continue per consultants. July 07: No new labs drawn today. Blood pressure stable. Will check lab tomorrow. Medication list reviewed. Continue per consultants. July 06: Labs reviewed. Renal parameters stable. Blood pressure is stable. Medication list reviewed. Blood pressure medication adjusted July 05: Labs reviewed. Blood pressure in check. Continue per consultants. Medication list reviewed. July 04: No blood drawn today. Blood pressure better controlled. Will check lab tomorrow. Continue to rest. July 03: Blood pressure needs better control, hence lisinopril added to Norvasc. IV iron initiated for low iron anemia. Continue per consultants. Stable from renal standpoint of view. Antibiotic for UTI in process. Subjective ROS Limited/Unobtainable: No Constitutional: Reports: malaise Objective Objective Last 24 Hour Vital Signs Date Time Temp Pulse Resp B/P (MAP) Pulse Ox O2 Delivery O2 Flow Rate FiO2 07/09/20 16:00 89 07/09/20 16:00 98.1 89 19 140/69 (92) 97 07/09/20 12:00 99 07/09/20 12:00 97.8 69 19 140/61 (87) 96 07/09/20 09:00 Nasal Cannula 2.0 07/09/20 08:45 91 145/70 07/09/20 08:45 145/70 07/09/20 08:00 91 07/09/20 08:00 96.6 59 20 145/70 (95) 96 07/09/20 04:26 98.1 79 18 137/83 (101) 96 07/09/20 04:00 78 07/09/20 00:30 96 07/09/20 00:30 98.1 79 20 134/86 (102) 97 07/08/20 21:00 Nasal Cannula 2.0 07/08/20 20:00 83 07/08/20 20:00 97.2 87 20 142/57 (85) 99 07/08/20 17:44 152/67 Intake and Output 07/08/20 07/09/20 19:00 07:00 Intake Total 160 ml Balance 160 ml Intake Oral 160 ml # Voids 3 3 # Bowel Movements 2 Current Medications Medications (Trade) Dose Ordered Sig/Yasmany Route PRN Reason Start Time Stop Time Status Last Admin Dose Admin Acetaminophen (Tylenol) 500 mg Q6H PRN ORAL Mild Pain (Pain Scale 1-3) 07/05/20 20:30 08/04/20 20:29 07/08/20 00:27 Amlodipine Besylate (Norvasc) 10 mg DAILY ORAL 07/07/20 09:00 08/06/20 08:59 07/09/20 08:45 Clonidine HCl (Catapres Tab) 0.1 mg Q6H PRN ORAL For High Blood Pressure 07/02/20 02:15 09/30/20 02:14 Docusate Sodium (Colace) 100 mg THREE TIMES A DAY ORAL 07/02/20 18:00 08/01/20 17:59 07/08/20 08:23 Lisinopril (ZestriL) 10 mg BID ORAL 07/06/20 18:00 08/03/20 08:59 07/09/20 08:45 Magnesium Sulfate 100 ml @ 100 mls/hr Q1H IVPB 07/09/20 15:30 07/09/20 17:29 07/09/20 15:50 Pantoprazole (Protonix) 40 mg EVERY 12 HOURS ORAL 07/02/20 21:00 08/01/20 20:59 07/09/20 08:45 Polyethylene Glycol (Miralax) 17 gm BEDTIME ORAL 07/05/20 21:00 08/04/20 20:59 07/07/20 20:44 Laboratory Tests 07/09/20 14:40: White Blood Count 11.3H, Red Blood Count 4.13L, Hemoglobin 9.4L, Hematocrit 30.0L, Mean Corpuscular Volume 73L, Mean Corpuscular Hemoglobin 22.8L, Mean Co rpuscular Hemoglobin Concent 31.4L, Red Cell Distribution Width 22.3H, Platelet Count 260, Mean Platelet Volume 6.5, Neutrophils (%) (Auto) 75.9H, Lymphocytes (%) (Auto) 12.9L, Monocytes (%) (Auto) 8.4, Eosinophils (%) (Auto) 1.2, Basophils (%) (Auto) 1.6, Sodium Level 143, Potassium Level 4.0, Chloride Level 107, Carbon Dioxide Level 30, Anion Gap 6, Blood Urea Nitrogen 8, Creatinine 1.0, Estimat Glomerular Filtration Rate 53.2, Glucose Level 126H, Calcium Level 9.2, Magnesium Level 1.6L, Total Bilirubin 0.5, Aspartate Amino Transf (AST/SGOT) 71H, Alanine Aminotransferase (ALT/SGPT) 53, Alkaline Phosphatase 139H, Total Protein 8.1, Albumin 3.0L, Globulin 5.1, Albumin/Globulin Ratio 0.6L Height (Feet): 5 Height (Inches): 4.00 Weight (Pounds): 179 General Appearance: no apparent distress Cardiovascular: normal rate Respiratory/Chest: decreased breath sounds Abdomen: distended Gordon Pritchett MD Jul 09, 2020 16:48
[2020-07-09] MEDS: Miralax 17gm pkt ORAL SCH (20:29)
--- NOTE | 2020-07-09 23:08 | NUR ---
Assumed pt's care at 1900 from [facility] Fam. Pt remains in no acute distress, respirations even and unlabored. Denies any pain and SOB. Running SR on tele monitor. Refused SCD's, pt is ambulatory, gait is unsteady. Uses bedside commode, able to make needs known. Safety and comfort measures maintained, call light within reach, bed in lowest position.
[2020-07-10 04:30] VITALS: BP 156/70
[2020-07-10 07:54] LABS: EOSINOPHILS % (AUTO) 2.1 % (0.0-3.0); HEMOGLOBIN 8.4 G/DL (12.0-16.0); LYMPHOCYTES % (AUTO) 24.3 % (20.0-45.0); MEAN CORPUSCULAR VOLUME 75 FL (80-99); MONOCYTES % (AUTO) 10.2 % (1.0-10.0); NEUTROPHILS % (AUTO) 62.4 % (45.0-75.0); PLATELET COUNT 263 K/UL (150-450); RED BLOOD COUNT 3.73 M/UL (4.20-5.40); WHITE BLOOD COUNT 10.5 K/UL (4.8-10.8)
[2020-07-10 08:00] VITALS: BP 173/68
[2020-07-10] MEDS: Lisinopril 10mg tab ORAL SCH ×2 (08:30→17:57)
[2020-07-10] MEDS: Docusate 100mg cap ORAL SCH ×3 (08:30→17:57)
--- NOTE | 2020-07-10 09:13 | Pulmonology Progress Note ---
Subjective ROS Limited/Unobtainable: No Interval Events: None new reported Constitutional: Reports: anorexia HEENT: Repors: no symptoms Respiratory: Reports: shortness of breath Cardiovascular: Reports: no symptoms Gastrointestinal/Abdominal: Reports: no symptoms Allergies: Coded Allergies: No Known Allergies (Unverified , 02/22/15) Objective Last 24 Hour Vital Signs Date Time Temp Pulse Resp B/P (MAP) Pulse Ox O2 Delivery O2 Flow Rate FiO2 07/10/20 08:30 104 173/68 07/10/20 08:30 173/68 07/10/20 08:00 98.6 103 20 173/68 (103) 96 07/10/20 08:00 104 07/10/20 04:31 95 07/10/20 04:30 98.1 86 17 156/70 (98) 95 07/10/20 00:00 94 07/09/20 23:46 98.8 92 17 143/54 (83) 95 07/09/20 21:50 Nasal Cannula 2.0 07/09/20 20:33 98.2 87 17 142/53 (82) 95 07/09/20 20:00 82 07/09/20 18:00 140/69 07/09/20 16:00 89 07/09/20 16:00 98.1 89 19 140/69 (92) 97 07/09/20 12:00 99 07/09/20 12:00 97.8 69 19 140/61 (87) 96 Intake and Output 07/09/20 07/10/20 19:00 07:00 Intake Total 600 ml 160 ml Balance 600 ml 160 ml Intake Oral 600 ml 160 ml # Voids 3 # Bowel Movements 2 General Appearance: no acute distress HEENT: atraumatic Respiratory: lungs clear Cardiovascular: normal rate, regular rhythm Abdomen: tender - RUQ Laboratory Tests 07/09/20 14:40: White Blood Count 11.3H, Red Blood Count 4.13L, Hemoglobin 9.4L, Hematocrit 30.0L, Mean Corpuscular Volume 73L, Mean Corpuscular Hemoglobin 22.8L, Mean Corpuscular Hemoglobin Concent 31.4L, Red Cell Distribution Width 22.3H, Platelet Count 260, Mean Platelet Volume 6.5, Neutrophils (%) (Auto) 75.9H, Lymphocytes (%) (Auto) 12.9L, Monocytes (%) (Auto) 8.4, Eosinophils (%) (Auto) 1.2, Basophils (%) (Auto) 1.6, Sodium Level 143, Potassium Level 4.0, Chloride Level 107, Carbon Dioxide Level 30, Anion Gap 6, Blood Urea Nitrogen 8, Creatinine 1.0, Estimat Glomerular Filtration Rate 53.2, Glucose Level 126H, Calcium Level 9.2, Magnesium Level 1.6L, Total Bilirubin 0.5, Aspartate Amino Transf (AST/SGOT) 71H, Alanine Aminotransferase (ALT/SGPT) 53, Alkaline Phosphatase 139H, Total Protein 8.1, Albumin 3.0L, Globulin 5.1, Albumin/Globulin Ratio 0.6L 07/10/20 07:03: White Blood Count 10.5, Red Blood Count 3.73L, Hemoglobin 8.4L, Hematocrit 28.0L , Mean Corpuscular Volume 75L, Mean Corpuscular Hemoglobin 22.6L, Mean Corpuscular Hemoglobin Concent 30.2L, Red Cell Distribution Width 21.0H, Platelet Count 263, Mean Platelet Volume 6.9, Neutrophils (%) (Auto) 62.4, Lymphocytes (%) (Auto) 24.3, Monocytes (%) (Auto) 10.2H, Eosinophils (%) (Auto) 2.1, Basophils (%) (Auto) 1.0 Current Medications Medications (Trade) Dose Ordered Sig/Yasmany Route PRN Reason Start Time Stop Time Status Last Admin Dose Admin Acetaminophen (Tylenol) 500 mg Q6H PRN ORAL Mild Pain (Pain Scale 1-3) 07/05/20 20:30 08/04/20 20:29 07/08/20 00:27 Amlodipine Besylate (Norvasc) 10 mg DAILY ORAL 07/07/20 09:00 08/06/20 08:59 07/10/20 08:30 Clonidine HCl (Catapres Tab) 0.1 mg Q6H PRN ORAL For High Blood Pressure 07/02/20 02:15 09/30/20 02:14 Docusate Sodium (Colace) 100 mg THREE TIMES A DAY ORAL 07/02/20 18:00 08/01/20 17:59 07/10/20 08:30 Lisinopril (ZestriL) 10 mg BID ORAL 07/06/20 18:00 08/03/20 08:59 07/10/20 08:30 Pantoprazole (Protonix) 40 mg EVERY 12 HOURS ORAL 07/02/20 21:00 08/01/20 20:59 07/10/20 08:30 Polyethylene Glycol (Miralax) 17 gm BEDTIME ORAL 07/05/20 21:00 08/04/20 20:59 07/07/20 20:44 Assessment/Plan Assessment/Plan 1. UTI - s/p Abx - f/u UCx negative (07/01) 2. Hypoxemia -Saturations improved - No indication for steroid at this time - Serial trops neg and 2D Echo EF 55-60% - Desaturates to 85% on room air during transfer, per PT -> now back on 2L NC - pt is pending dc home per primary MD -> pt will need either SNF or home with home oxygen; will discuss with family 3. Hypertensive urgency - now BP better controlled 4. COVID-19 negative (07/01) 5. DVT ppx - on SCD 6. Left base atelectasis on chest CT - Normoxemia on low flow oxygen/RA 7. ? Liver cirrhosis - GI following - Abd US, hep panel The care for this patient was discussed with my supervising physician Time spent for this case was approximately 31 minutes Jovan Santos Jul 10, 2020 09:13
[2020-07-10 10:12] LABS: ALANINE AMINOTRANSFERASE 51 U/L (12-78); ALBUMIN 2.7 G/DL (3.4-5.0); ALBUMIN/GLOBULIN RATIO 0.6 (1.0-2.7); ALKALINE PHOSPHATASE 117 U/L (46-116); ANION GAP 5 mmol/L (5-15); ASPARTATE AMINO TRANSFERASE 59 U/L (15-37); BILIRUBIN,TOTAL 0.5 MG/DL (0.2-1.0); BLOOD UREA NITROGEN 10 mg/dL (7-18); CALCIUM 8.9 MG/DL (8.5-10.1); CARBON DIOXIDE 30 MMOL/L (21-32); CHLORIDE 107 MMOL/L (98-107); CREATININE 0.9 MG/DL (0.55-1.30); POTASSIUM 3.9 MMOL/L (3.5-5.1); SODIUM 142 MMOL/L (136-145)
--- NOTE | 2020-07-10 10:48 | Pulmonology Progress Note ---
Subjective ROS Limited/Unobtainable: No Interval Events: None new reported Constitutional: Reports: anorexia HEENT: Repors: no symptoms Respiratory: Reports: shortness of breath Cardiovascular: Reports: no symptoms Gastrointestinal/Abdominal: Reports: no symptoms Allergies: Coded Allergies: No Known Allergies (Unverified , 02/22/15) Objective Last 24 Hour Vital Signs Date Time Temp Pulse Resp B/P (MAP) Pulse Ox O2 Delivery O2 Flow Rate FiO2 07/10/20 09:00 Nasal Cannula 2.0 07/10/20 08:30 104 173/68 07/10/20 08:30 173/68 07/10/20 08:00 98.6 103 20 173/68 (103) 96 07/10/20 08:00 104 07/10/20 04:31 95 07/10/20 04:30 98.1 86 17 156/70 (98) 95 07/10/20 00:00 94 07/09/20 23:46 98.8 92 17 143/54 (83) 95 07/09/20 21:50 Nasal Cannula 2.0 07/09/20 20:33 98.2 87 17 142/53 (82) 95 07/09/20 20:00 82 07/09/20 18:00 140/69 07/09/20 16:00 89 07/09/20 16:00 98.1 89 19 140/69 (92) 97 07/09/20 12:00 99 07/09/20 12:00 97.8 69 19 140/61 (87) 96 Intake and Output 07/09/20 07/10/20 19:00 07:00 Intake Total 600 ml 160 ml Balance 600 ml 160 ml Intake Oral 600 ml 160 ml # Voids 3 # Bowel Movements 2 General Appearance: no acute distress HEENT: atraumatic Respiratory: lungs clear Cardiovascular: normal rate, regular rhythm Abdomen: tender - RUQ Laboratory Tests 07/09/20 14:40: White Blood Count 11.3H, Red Blood Count 4.13L, Hemoglobin 9.4L, Hematocrit 30.0L, Mean Corpuscular Volume 73L, Mean Corpuscular Hemoglobin 22.8L, Mean Corpuscular Hemoglobin Concent 31.4L, Red Cell Distribution Width 22.3H, Platelet Count 260, Mean Platelet Volume 6.5, Neutrophils (%) (Auto) 75.9H, Lymphocytes (%) (Auto) 12.9L, Monocytes (%) (Auto) 8.4, Eosinophils (%) (Auto) 1.2, Basophils (%) (Auto) 1.6, Sodium Level 143, Potassium Level 4.0, Chloride Level 107, Carbon Dioxide Level 30, Anion Gap 6, Blood Urea Nitrogen 8, Creatinine 1.0, Estimat Glomerular Filtration Rate 53.2, Glucose Level 126H, Calcium Level 9.2, Magnesium Level 1.6L, Total Bilirubin 0.5, Aspartate Amino Transf (AST/SGOT) 71H, Alanine Aminotransferase (ALT/SGPT) 53, Alkaline Ph osphatase 139H, Total Protein 8.1, Albumin 3.0L, Globulin 5.1, Albumin/Globulin Ratio 0.6L 07/10/20 07:03: White Blood Count 10.5, Red Blood Count 3.73L, Hemoglobin 8.4L, Hematocrit 28.0L , Mean Corpuscular Volume 75L, Mean Corpuscular Hemoglobin 22.6L, Mean Corpuscular Hemoglobin Concent 30.2L, Red Cell Distribution Width 21.0H, Platelet Count 263, Mean Platelet Volume 6.9, Neutrophils (%) (Auto) 62.4, Lymphocytes (%) (Auto) 24.3, Monocytes (%) (Auto) 10.2H, Eosinophils (%) (Auto) 2.1, Basophils (%) (Auto) 1.0 07/10/20 07:26: Sodium Level 142, Potassium Level 3.9, Chloride Level 107, Carbon Dioxide Level 30, Anion Gap 5, Blood Urea Nitrogen 10, Creatinine 0.9, Estimat Glomerular Filtration Rate > 60, Glucose Level 83, Calcium Level 8.9, Magnesium Level 2.1, Total Bilirubin 0.5, Aspartate Amino Transf (AST/SGOT) 59H, Alanine Aminotransferase (ALT/SGPT) 51, Alkaline Phosphatase 117H, Total Protein 7.3, Albumin 2.7L, Globulin 4.6, Albumin/Globulin Ratio 0.6L Current Medications Medications (Trade) Dose Ordered Sig/Yasmany Route PRN Reason Start Time Stop Time Status Last Admin Dose Admin Acetaminophen (Tylenol) 500 mg Q6H PRN ORAL Mild Pain (Pain Scale 1-3) 07/05/20 20:30 08/04/20 20:29 07/08/20 00:27 Amlodipine Besylate (Norvasc) 10 mg DAILY ORAL 07/07/20 09:00 08/06/20 08:59 07/10/20 08:30 Clonidine HCl (Catapres Tab) 0.1 mg Q6H PRN ORAL For High Blood Pressure 07/02/20 02:15 09/30/20 02:14 Docusate Sodium (Colace) 100 mg THREE TIMES A DAY ORAL 07/02/20 18:00 08/01/20 17:59 07/10/20 08:30 Lisinopril (ZestriL) 10 mg BID ORAL 07/06/20 18:00 08/03/20 08:59 07/10/20 08:30 Pantoprazole (Protonix) 40 mg EVERY 12 HOURS ORAL 07/02/20 21:00 08/01/20 20:59 07/10/20 08:30 Polyethylene Glycol (Miralax) 17 gm BEDTIME ORAL 07/05/20 21:00 08/04/20 20:59 07/07/20 20:44 Assessment/Plan Assessment/Plan 1. UTI - s/p Abx - f/u UCx negative (07/01) 2. Hypoxemia - Serial trops neg and 2D Echo EF 55-60% - Desaturates to 85% on room air during transfer, per PT -> now back on 2L NC - pt is pending dc home per primary MD -> pt will need either SNF or home with home oxygen; will consult pillowcase folder for home oxygen 3. Hypertensive urgency - now BP better controlled 4. COVID-19 negative (07/01) 5. DVT ppx - on SCD 6. Left base atelectasis on chest CT - Normoxemia on low flow oxygen/RA 7. ? Liver cirrhosis - GI following - Abd US, hep panel The care for this patient was discussed with my supervising physician Time spent for this case was approximately 31 minutes Jovan Santos Jul 10, 2020 10:48
--- NOTE | 2020-07-10 11:30 | Nephrology Progress Note ---
Assessment/Plan Problem List: (1) Iron deficiency anemia (2) Hypertensive urgency (3) UTI (urinary tract infection) (4) DMII (diabetes mellitus, type 2) Assessment: Hemoglobin A1c 7.1 Assessment Hypertensive urgency Anemia, low MCV Weakness Hiatus hernia UTI DM Plan July 10: Labs reviewed. Renal parameters stable. Continue per consultants. July 09: Labs reviewed. Abnormal electrolytes addressed. Continue per consultants. July 08: Labs reviewed. Low magnesium addressed. Medication list reviewed. Continue per consultants. July 07: No new labs drawn today. Blood pressure stable. Will check lab tomorrow. Medication list reviewed. Continue per consultants. July 06: Labs reviewed. Renal parameters stable. Blood pressure is stable. Medication list reviewed. Blood pressure medication adjusted July 05: Labs reviewed. Blood pressure in check. Continue per consultants. Medication list reviewed. July 04: No blood drawn today. Blood pressure better controlled. Will check lab tomorrow. Continue to rest. July 03: Blood pressure needs better control, hence lisinopril added to Norvasc. IV iron initiated for low iron anemia. Continue per consultants. Stable from renal standpoint of view. Antibiotic for UTI in process. Subjective ROS Limited/Unobtainable: No Constitutional: Reports: malaise Objective Objective Last 24 Hour Vital Signs Date Time Temp Pulse Resp B/P (MAP) Pulse Ox O2 Delivery O2 Flow Rate FiO2 07/10/20 09:00 Nasal Cannula 2.0 07/10/20 08:30 104 173/68 07/10/20 08:30 173/68 07/10/20 08:00 98.6 103 20 173/68 (103) 96 07/10/20 08:00 104 07/10/20 04:31 95 07/10/20 04:30 98.1 86 17 156/70 (98) 95 07/10/20 00:00 94 07/09/20 23:46 98.8 92 17 143/54 (83) 95 07/09/20 21:50 Nasal Cannula 2.0 07/09/20 20:33 98.2 87 17 142/53 (82) 95 07/09/20 20:00 82 07/09/20 18:00 140/69 07/09/20 16:00 89 07/09/20 16:00 98.1 89 19 140/69 (92) 97 07/09/20 12:00 99 07/09/20 12:00 97.8 69 19 140/61 (87) 96 Intake and Output 07/09/20 07/10/20 19:00 07:00 Intake Total 600 ml 160 ml Balance 600 ml 160 ml Intake Oral 600 ml 160 ml # Voids 3 # Bowel Movements 2 Current Medications Medications (Trade) Dose Ordered Sig/Yasmany Route PRN Reason Start Time Stop Time Status Last Admin Dose Admin Acetaminophen (Tylenol) 500 mg Q6H PRN ORAL Mild Pain (Pain Scale 1-3) 07/05/20 20:30 08/04/20 20:29 07/08/20 00:27 Amlodipine Besylate (Norvasc) 10 mg DAILY ORAL 07/07/20 09:00 08/06/20 08:59 07/10/20 08:30 Clonidine HCl (Catapres Tab) 0.1 mg Q6H PRN ORAL For High Blood Pressure 07/02/20 02:15 09/30/20 02:14 Docusate Sodium (Colace) 100 mg THREE TIMES A DAY ORAL 07/02/20 18:00 08/01/20 17:59 07/10/20 08:30 Lisinopril (ZestriL) 10 mg BID ORAL 07/06/20 18:00 08/03/20 08:59 07/10/20 08:30 Pantoprazole (Protonix) 40 mg EVERY 12 HOURS ORAL 07/02/20 21:00 08/01/20 20:59 07/10/20 08:30 Polyethylene Glycol (Miralax) 17 gm BEDTIME ORAL 07/05/20 21:00 08/04/20 20:59 07/07/20 20:44 Laboratory Tests 07/09/20 14:40: White Blood Count 11.3H, Red Blood Count 4.13L, Hemoglobin 9.4L, Hematocrit 30.0L, Mean Corpuscular Volume 73L, Mean Corpuscular Hemoglobin 22.8L, Mean Corpuscular Hemoglobin Concent 31.4L, Red Cell Distribution Width 22.3H, Platelet Count 260, Mean Platelet Volume 6.5, Neutrophils (%) (Auto) 75.9H, Lymphocytes (%) (Auto) 12.9L, Monocytes (%) (Auto) 8.4, Eosinophils (%) (Auto) 1.2, Basophils (%) (Auto) 1.6, Sodium Level 143, Potassium Level 4.0, Chloride Level 107, Carbon Dioxide Level 30, Anion Gap 6, Blood Urea Nitrogen 8, Creatinine 1.0, Estimat Glomerular Filtration Rate 53.2, Glucose Level 126H, Calcium Level 9.2, Magnesium Level 1.6L, Total Bilirubin 0.5, Aspartate Amino Transf (AST/SGOT) 71H, Alanine Aminotransferase (ALT/SGPT) 53, Alkaline Phosphatase 139H, Total Protein 8.1, Albumin 3.0L, Globulin 5.1, Albumin/Globulin Ratio 0.6L 07/10/20 07:03: White Blood Count 10.5, Red Blood Count 3.73L, Hemoglobin 8.4L, Hematocrit 28.0L , Mean Corpuscular Volume 75L, Mean Corpuscular Hemoglobin 22.6L, Mean Corpuscular Hemoglobin Concent 30.2L, Red Cell Distribution Width 21.0H, Pl atelet Count 263, Mean Platelet Volume 6.9, Neutrophils (%) (Auto) 62.4, Lymphocytes (%) (Auto) 24.3, Monocytes (%) (Auto) 10.2H, Eosinophils (%) (Auto) 2.1, Basophils (%) (Auto) 1.0 07/10/20 07:26: Sodium Level 142, Potassium Level 3.9, Chloride Level 107, Carbon Dioxide Level 30, Anion Gap 5, Blood Urea Nitrogen 10, Creatinine 0.9, Estimat Glomerular Filtration Rate > 60, Glucose Level 83, Calcium Level 8.9, Magnesium Level 2.1, Total Bilirubin 0.5, Aspartate Amino Transf (AST/SGOT) 59H, Alanine Aminotransferase (ALT/SGPT) 51, Alkaline Phosphatase 117H, Total Protein 7.3, Albumin 2.7L, Globulin 4.6, Albumin/Globulin Ratio 0.6L Height (Feet): 5 Height (Inches): 4.00 Weight (Pounds): 179 General Appearance: no apparent distress Cardiovascular: tachycardia Respiratory/Chest: decreased breath sounds Abdomen: distended Gordon Pritchett MD Jul 10, 2020 11:30
--- NOTE | 2020-07-10 11:37 | NUR ---
TELEVISION ENGINEERING TEACHER NOTES SPOKE WITH CHARGE NURSE YESENIA, MADE AWARE OF REQUIRED TESTING FOR HOME O2. PENDING TEST RESULTS.
--- NOTE | 2020-07-10 11:53 | Infectious Diseases Prog Note ---
Assessment/Plan Assessment/Plan IMPRESSION: 1. Atelectasis versus pneumonia treated 2. Pyuria and bacteriuria, ? UTI, treated 3. Diabetes mellitus. 4. Hypertensive, accelerated 5. Cirrhosis. 6. Anemia. 7. s/p cholecystectomy 8. Positive hepatitis C antibody RECOMMENDATION: Observe off antibiotic Subjective ROS Limited/Unobtainable: Yes Constitutional: Denies: fever Allergies: Coded Allergies: No Known Allergies (Unverified , 02/22/15) Objective Last 24 Hour Vital Signs Date Time Temp Pulse Resp B/P (MAP) Pulse Ox O2 Delivery O2 Flow Rate FiO2 07/10/20 09:00 Nasal Cannula 2.0 07/10/20 08:30 104 173/68 07/10/20 08:30 173/68 07/10/20 08:00 98.6 103 20 173/68 (103) 96 07/10/20 08:00 104 07/10/20 04:31 95 07/10/20 04:30 98.1 86 17 156/70 (98) 95 07/10/20 00:00 94 07/09/20 23:46 98.8 92 17 143/54 (83) 95 07/09/20 21:50 Nasal Cannula 2.0 07/09/20 20:33 98.2 87 17 142/53 (82) 95 07/09/20 20:00 82 07/09/20 18:00 140/69 07/09/20 16:00 89 07/09/20 16:00 98.1 89 19 140/69 (92) 97 07/09/20 12:00 99 07/09/20 12:00 97.8 69 19 140/61 (87) 96 Height (Feet): 5 Height (Inches): 4.00 Weight (Pounds): 179 HEENT: mucous membranes moist Respiratory/Chest: lungs clear Cardiovascular: normal rate Abdomen: soft, non tender Extremities: no edema Neurologic/Psychiatric: alert, responsive Laboratory Tests Test 07/09/20 14:40 07/10/20 07:03 07/10/20 07:26 White Blood Count 11.3 K/UL (4.8-10.8) H 10.5 K/UL (4.8-10.8) Red Blood Count 4.13 M/UL (4.20-5.40) L 3.73 M/UL (4.20-5.40) L Hemoglobin 9.4 G/DL (12.0-16.0) L 8.4 G/DL (12.0-16.0) L Hematocrit 30.0 % (37.0-47.0) L 28.0 % (37.0-47.0) L Mean Corpuscular Volume 73 FL (80-99) L 75 FL (80-99) L Mean Corpuscular Hemoglobin 22.8 PG (27.0-31.0) L 22.6 PG (27.0-31.0) L Mean Corpuscular Hemoglobin Concent 31.4 G/DL (32.0-36.0) L 30.2 G/DL (32.0-36.0) L Red Cell Distribution Width 22.3 % (11.6-14.8) H 21.0 % (11.6-14.8) H Platelet Count 260 K/UL (150-450) 263 K/UL (150-450) Mean Platelet Volume 6.5 FL (6.5-10.1) 6.9 FL (6.5-10.1) Neutrophils (%) (Auto) 75.9 % (45.0-75.0) H 62.4 % (45.0-75.0) Lymphocytes (%) (Auto) 12.9 % (20.0-45.0) L 24.3 % (20.0-45.0) Monocytes (%) (Auto) 8.4 % (1.0-10.0) 10.2 % (1.0-10.0) H Eosinophils (%) (Auto) 1.2 % (0.0-3.0) 2.1 % (0.0-3.0) Basophils (%) (Auto) 1.6 % (0.0-2.0) 1.0 % (0.0-2.0) Sodium Level 143 MMOL/L (136-145) 142 MMOL/L (136-145) Potassium Level 4.0 MMOL/L (3.5-5.1) 3.9 MMOL/L (3.5-5.1) Chloride Level 107 MMOL/L (98-107) 107 MMOL/L (98-107) Carbon Dioxide Level 30 MMOL/L (21-32) 30 MMOL/L (21-32) Anion Gap 6 mmol/L (5-15) 5 mmol/L (5-15) Blood Urea Nitrogen 8 mg/dL (7-18) 10 mg/dL (7-18) Creatinine 1.0 MG/DL (0.55-1.30) 0.9 MG/DL (0.55-1.30) Estimat Glomerular Filtration Rate 53.2 mL/min (>60) > 60 mL/min (>60) Glucose Level 126 MG/DL (74-106) H 83 MG/DL (74-106) Calcium Level 9.2 MG/DL (8.5-10.1) 8.9 MG/DL (8.5-10.1) Magnesium Level 1.6 MG/DL (1.8-2.4) L 2.1 MG/DL (1.8-2.4) Total Bilirubin 0.5 MG/DL (0.2-1.0) 0.5 MG/DL (0.2-1.0) Aspartate Amino Transf (AST/SGOT) 71 U/L (15-37) H 59 U/L (15-37) H Alanine Aminotransferase (ALT/SGPT) 53 U/L (12-78) 51 U/L (12-78) Alkaline Phosphatase 139 U/L (46-116) H 117 U/L (46-116) H Total Protein 8.1 G/DL (6.4-8.2) 7.3 G/DL (6.4-8.2) Albumin 3.0 G/DL (3.4-5.0) L 2.7 G/DL (3.4-5.0) L Globulin 5.1 g/dL 4.6 g/dL Albumin/Globulin Ratio 0.6 (1.0-2.7) L 0.6 (1.0-2.7) L Current Medications Medications (Trade) Dose Ordered Sig/Yasmany Route PRN Reason Start Time Stop Time Status Last Admin Dose Admin Acetaminophen (Tylenol) 500 mg Q6H PRN ORAL Mild Pain (Pain Scale 1-3) 07/05/20 20:30 08/04/20 20:29 07/08/20 00:27 Amlodipine Besylate (Norvasc) 10 mg DAILY ORAL 07/07/20 09:00 08/06/20 08:59 07/10/20 08:30 Clonidine HCl (Catapres Tab) 0.1 mg Q6H PRN ORAL For High Blood Pressure 07/02/20 02:15 09/30/20 02:14 Docusate Sodium (Colace) 100 mg THREE TIMES A DAY ORAL 07/02/20 18:00 08/01/20 17:59 07/10/20 08:30 Lisinopril (ZestriL) 10 mg BID ORAL 07/06/20 18:00 08/03/20 08:59 07/10/20 08:30 Pantoprazole (Protonix) 40 mg EVERY 12 HOURS ORAL 07/02/20 21:00 08/01/20 20:59 07/10/20 08:30 Polyethylene Glycol (Miralax) 17 gm BEDTIME ORAL 07/05/20 21:00 08/04/20 20:59 07/07/20 20:44 Keanu Goodson MD Jul 10, 2020 11:53
[2020-07-10 12:00] VITALS: BP 158/62
--- NOTE | 2020-07-10 12:18 | NUR ---
NURSE NOTES: patient O2 sat went down as low as 86% in RA while sitting down, denies short of breath. applied O2 @ 2L NC - 95%.
--- NOTE | 2020-07-10 13:03 | General Progress Note ---
Subjective ROS Limited/Unobtainable: Yes Allergies: Coded Allergies: No Known Allergies (Unverified , 02/22/15) Objective Last 24 Hour Vital Signs Date Time Temp Pulse Resp B/P (MAP) Pulse Ox O2 Delivery O2 Flow Rate FiO2 07/10/20 12:28 86 07/10/20 09:00 Nasal Cannula 2.0 07/10/20 08:30 104 173/68 07/10/20 08:30 173/68 07/10/20 08:00 98.6 103 20 173/68 (103) 96 07/10/20 08:00 104 07/10/20 04:31 95 07/10/20 04:30 98.1 86 17 156/70 (98) 95 07/10/20 00:00 94 07/09/20 23:46 98.8 92 17 143/54 (83) 95 07/09/20 21:50 Nasal Cannula 2.0 07/09/20 20:33 98.2 87 17 142/53 (82) 95 07/09/20 20:00 82 07/09/20 18:00 140/69 07/09/20 16:00 89 07/09/20 16:00 98.1 89 19 140/69 (92) 97 Intake and Output 07/09/20 07/10/20 19:00 07:00 Intake Total 600 ml 160 ml Balance 600 ml 160 ml Intake Oral 600 ml 160 ml # Voids 3 # Bowel Movements 2 Laboratory Tests 07/09/20 14:40: White Blood Count 11.3H, Red Blood Count 4.13L, Hemoglobin 9.4L, Hematocrit 30.0L, Mean Corpuscular Volume 73L, Mean Corpuscular Hemoglobin 22.8L, Mean Cor puscular Hemoglobin Concent 31.4L, Red Cell Distribution Width 22.3H, Platelet Count 260, Mean Platelet Volume 6.5, Neutrophils (%) (Auto) 75.9H, Lymphocytes (%) (Auto) 12.9L, Monocytes (%) (Auto) 8.4, Eosinophils (%) (Auto) 1.2, Basophils (%) (Auto) 1.6, Sodium Level 143, Potassium Level 4.0, Chloride Level 107, Carbon Dioxide Level 30, Anion Gap 6, Blood Urea Nitrogen 8, Creatinine 1.0, Estimat Glomerular Filtration Rate 53.2, Glucose Level 126H, Calcium Level 9.2, Magnesium Level 1.6L, Total Bilirubin 0.5, Aspartate Amino Transf (AST/SGOT) 71H, Alanine Aminotransferase (ALT/SGPT) 53, Alkaline Phosphatase 139H, Total Protein 8.1, Albumin 3.0L, Globulin 5.1, Albumin/Globulin Ratio 0.6L 07/10/20 07:03: White Blood Count 10.5, Red Blood Count 3.73L, Hemoglobin 8.4L, Hematocrit 28.0L , Mean Corpuscular Volume 75L, Mean Corpuscular Hemoglobin 22.6L, Mean Corpuscular Hemoglobin Concent 30.2L, Red Cell Distribution Width 21.0H, Platelet Count 263, Mean Platelet Volume 6.9, Neutrophils (%) (Auto) 62.4, Lymphocytes (%) (Auto) 24.3, Monocytes (%) (Auto) 10.2H, Eosinophils (%) (Auto) 2.1, Basophils (%) (Auto) 1.0 07/10/20 07:26: Sodium Level 142, Potassium Level 3.9, Chloride Level 107, Carbon Dioxide Level 30, Anion Gap 5, Blood Urea Nitrogen 10, Creatinine 0.9, Estimat Glomerular Filtration Rate > 60, Glucose Level 83, Calcium Level 8.9, Magnesium Level 2.1, Total Bilirubin 0.5, Aspartate Amino Transf (AST/SGOT) 59H, Alanine Aminotransferase (ALT/SGPT) 51, Alkaline Phosphatase 117H, Total Protein 7.3, Albumin 2.7L, Globulin 4.6, Albumin/Globulin Ratio 0.6L Height (Feet): 5 Height (Inches): 4.00 Weight (Pounds): 179 General Appearance: no apparent distress EENT: PERRL/EOMI Neck: supple Cardiovascular: normal rate Respiratory/Chest: decreased breath sounds Abdomen: normal bowel sounds, non tender, soft Extremities: non-tender Assessment/Plan Problem List: (1) DMII (diabetes mellitus, type 2) ICD Codes: E11.9 - Type 2 diabetes mellitus without complications SNOMED: 25333187 (2) UTI (urinary tract infection) ICD Codes: N39.0 - Urinary tract infection, site not specified SNOMED: 38327203 (3) Iron deficiency anemia ICD Codes: D50.9 - Iron deficiency anemia, unspecified SNOMED: 82124396 (4) Hiatal hernia ICD Codes: K44.9 - Diaphragmatic hernia without obstruction or gangrene SNOMED: 86286727 (5) Abdominal pain ICD Codes: R10.9 - Unspecified abdominal pain SNOMED: 45212927 Status: progressing Assessment/Plan: iv iron fu H&H fu stool ob patient refusing EGD and colonoscopy fu hepatitis panel>>>positive for hep C needs out patient fu for hep C treatment fu abd us>>>> cirrhosis Charlie Kulkarni MD Jul 10, 2020 13:03
--- NOTE | 2020-07-10 13:30 | Cardiac Electrophysiology PN ---
Assessment/Plan Assessment/Plan 1. Shortness of breath. EKG shows sinus rhythm with nonspecific ST-T wave abnormalities. Ruled out MA protocol. EF 65% on echocardiogram. 2. Accelerated hypertension. On Norvasc 5 po bid and Lisinopril 10 daily On p.r.n. clonidine. 3. Shortness of breath and pneumonia. Fu by Dr. Chaney. 4. Left base atelectasis on chest CT and possible pneumonia DW RN DC pending Subjective Subjective No CP or SOB. DC home with HH vs SNIF is pending. On 2 liter nasal cannula Objective Last 24 Hour Vital Signs Date Time Temp Pulse Resp B/P (MAP) Pulse Ox O2 Delivery O2 Flow Rate FiO2 07/10/20 12:28 86 07/10/20 12:00 104 07/10/20 09:00 Nasal Cannula 2.0 07/10/20 08:30 104 173/68 07/10/20 08:30 173/68 07/10/20 08:00 98.6 103 20 173/68 (103) 96 07/10/20 08:00 104 07/10/20 04:31 95 07/10/20 04:30 98.1 86 17 156/70 (98) 95 07/10/20 00:00 94 07/09/20 23:46 98.8 92 17 143/54 (83) 95 07/09/20 21:50 Nasal Cannula 2.0 07/09/20 20:33 98.2 87 17 142/53 (82) 95 07/09/20 20:00 82 07/09/20 18:00 140/69 07/09/20 16:00 89 07/09/20 16:00 98.1 89 19 140/69 (92) 97 Intake and Output 07/09/20 07/10/20 19:00 07:00 Intake Total 600 ml 160 ml Balance 600 ml 160 ml Intake Oral 600 ml 160 ml # Voids 3 # Bowel Movements 2 Laboratory Tests Test 07/09/20 14:40 07/10/20 07:03 07/10/20 07:26 White Blood Count 11.3 K/UL (4.8-10.8) H 10.5 K/UL (4.8-10.8) Red Blood Count 4.13 M/UL (4.20-5.40) L 3.73 M/UL (4.20-5.40) L Hemoglobin 9.4 G/DL (12.0-16.0) L 8.4 G/DL (12.0-16.0) L Hematocrit 30.0 % (37.0-47.0) L 28.0 % (37.0-47.0) L Mean Corpuscular Volume 73 FL (80-99) L 75 FL (80-99) L Mean Corpuscular Hemoglobin 22.8 PG (27.0-31.0) L 22.6 PG (27.0-31.0) L Mean Corpuscular Hemoglobin Concent 31.4 G/DL (32.0-36.0) L 30.2 G/DL (32.0-36.0) L Red Cell Distribution Width 22.3 % (11.6-14.8) H 21.0 % (11.6-14.8) H Platelet Count 260 K/UL (150-450) 263 K/UL (150-450) Mean Platelet Volume 6.5 FL (6.5-10.1) 6.9 FL (6.5-10.1) Neutrophils (%) (Auto) 75.9 % (45.0-75.0) H 62.4 % (45.0-75.0) Lymphocytes (%) (Auto) 12.9 % (20.0-45.0) L 24.3 % (20.0-45.0) Monocytes (%) (Auto) 8.4 % (1.0-10.0) 10.2 % (1.0-10.0) H Eosinophils (%) (Auto) 1.2 % (0.0-3.0) 2.1 % (0.0-3.0) Basophils (%) (Auto) 1.6 % (0.0-2.0) 1.0 % (0.0-2.0) Sodium Level 143 MMOL/L (136-145) 142 MMOL/L (136-145) Potassium Level 4.0 MMOL/L (3.5-5.1) 3.9 MMOL/L (3.5-5.1) Chloride Level 107 MMOL/L (98-107) 107 MMOL/L (98-107) Carbon Dioxide Level 30 MMOL/L (21-32) 30 MMOL/L (21-32) Anion Gap 6 mmol/L (5-15) 5 mmol/L (5-15) Blood Urea Nitrogen 8 mg/dL (7-18) 10 mg/dL (7-18) Creatinine 1.0 MG/DL (0.55-1.30) 0.9 MG/DL (0.55-1.30) Estimat Glomerular Filtration Rate 53.2 mL/min (>60) > 60 mL/min (>60) Glucose Level 126 MG/DL (74-106) H 83 MG/DL (74-106) Calcium Level 9.2 MG/DL (8.5-10.1) 8.9 MG/DL (8.5-10.1) Magnesium Level 1.6 MG/DL (1.8-2.4) L 2.1 MG/DL (1.8-2.4) Total Bilirubin 0.5 MG/DL (0.2-1.0) 0.5 MG/DL (0.2-1.0) Aspartate Amino Transf (AST/SGOT) 71 U/L (15-37) H 59 U/L (15-37) H Alanine Aminotransferase (ALT/SGPT) 53 U/L (12-78) 51 U/L (12-78) Alkaline Phosphatase 139 U/L (46-116) H 117 U/L (46-116) H Total Protein 8.1 G/DL (6.4-8.2) 7.3 G/DL (6.4-8.2) Albumin 3.0 G/DL (3.4-5.0) L 2.7 G/DL (3.4-5.0) L Globulin 5.1 g/dL 4.6 g/dL Albumin/Globulin Ratio 0.6 (1.0-2.7) L 0.6 (1.0-2.7) L Objective HEAD AND NECK: No JVD. LUNGS: Clear. CARDIOVASCULAR: Regular S1 and S2 with no gallop or murmur. ABDOMEN: Soft. EXTREMITIES: 1+ pitting edema. Jude Stone MD Jul 10, 2020 13:30
--- NOTE | 2020-07-10 13:50 | NUR ---
*-*DISCHARGE PLANNING*-* CLINICALS HAVE BEEN FAXED TO: [facility] P: [phone] F: [phone] PLACED MULTIPLE CALL TO SPEAK WITH INSTRUCTOR TAP DANCING, NO ANSWER, LEFT 3 VOICE MESSAGES.
--- NOTE | 2020-07-10 15:31 | NUR ---
INSURANCE CLINICALS FAXED TO [facility]#[phone] fax#[phone]
[2020-07-10 16:00] VITALS: BP 116/65
[2020-07-10 20:30] VITALS: BP_SYST 122; BP_SYST 149; BP_DIAS 62; BP_DIAS 83
[2020-07-10] MEDS: Miralax 17gm pkt ORAL SCH (21:15)
--- NOTE | 2020-07-10 21:17 | General Progress Note ---
Subjective ROS Limited/Unobtainable: Yes Allergies: Coded Allergies: No Known Allergies (Unverified , 02/22/15) Objective Last 24 Hour Vital Signs Date Time Temp Pulse Resp B/P (MAP) Pulse Ox O2 Delivery O2 Flow Rate FiO2 07/10/20 17:57 154/63 07/10/20 16:00 98.1 95 20 116/65 (82) 96 07/10/20 16:00 94 07/10/20 12:28 86 07/10/20 12:00 104 07/10/20 12:00 97.7 98 20 158/62 (94) 98 07/10/20 09:00 Nasal Cannula 2.0 07/10/20 08:30 104 173/68 07/10/20 08:30 173/68 07/10/20 08:00 98.6 103 20 173/68 (103) 96 07/10/20 08:00 104 07/10/20 04:31 95 07/10/20 04:30 98.1 86 17 156/70 (98) 95 07/10/20 00:00 94 07/09/20 23:46 98.8 92 17 143/54 (83) 95 07/09/20 21:50 Nasal Cannula 2.0 Intake and Output 07/09/20 07/10/20 19:00 07:00 Intake Total 600 ml 160 ml Balance 600 ml 160 ml Intake Oral 600 ml 160 ml # Voids 3 # Bowel Movements 2 Laboratory Tests 07/10/20 07:03: White Blood Count 10.5, Red Blood Count 3.73L, Hemoglobin 8.4L, Hematocrit 28.0L , Mean Corpuscular Volume 75L, Mean Corpuscular Hemoglobin 22.6L, Mean Cor puscular Hemoglobin Concent 30.2L, Red Cell Distribution Width 21.0H, Platelet Count 263, Mean Platelet Volume 6.9, Neutrophils (%) (Auto) 62.4, Lymphocytes (%) (Auto) 24.3, Monocytes (%) (Auto) 10.2H, Eosinophils (%) (Auto) 2.1, Basophils (%) (Auto) 1.0 07/10/20 07:26: Sodium Level 142, Potassium Level 3.9, Chloride Level 107, Carbon Dioxide Level 30, Anion Gap 5, Blood Urea Nitrogen 10, Creatinine 0.9, Estimat Glomerular Filtration Rate > 60, Glucose Level 83, Calcium Level 8.9, Magnesium Level 2.1, Total Bilirubin 0.5, Aspartate Amino Transf (AST/SGOT) 59H, Alanine Aminotransferase (ALT/SGPT) 51, Alkaline Phosphatase 117H, Total Protein 7.3, Albumin 2.7L, Globulin 4.6, Albumin/Globulin Ratio 0.6L Height (Feet): 5 Height (Inches): 4.00 Weight (Pounds): 179 Assessment/Plan Problem List: (1) Weakness ICD Codes: R53.1 - Weakness SNOMED: 28385528 (2) Hypertensive urgency ICD Codes: I16.0 - Hypertensive urgency SNOMED: 958047729 (3) UTI (urinary tract infection) ICD Codes: N39.0 - Urinary tract infection, site not specified SNOMED: 31313230 (4) DMII (diabetes mellitus, type 2) ICD Codes: E11.9 - Type 2 diabetes mellitus without complications SNOMED: 85542935 (5) Abdominal pain ICD Codes: R10.9 - Unspecified abdominal pain SNOMED: 90200061 (6) Hiatal hernia ICD Codes: K44.9 - Diaphragmatic hernia without obstruction or gangrene SNOMED: 69642606 Status: progressing Assessment/Plan: had a long conversation with grandson.told him pt has exertional dyspnea and weakness and will benefit from snf.i asked him to mention all this to daughter since she cant speak uzbek reviewed chart and labs prn oxgyen needs home oxygen weak and debilitated Swathi Washington MD Jul 10, 2020 21:17
[2020-07-11] VITALS: BP 157/74
--- NOTE | 2020-07-11 03:50 | NUR ---
NURSE NOTES: Assumed pt's care at 1900 from CORY Sterling. No acute dsitre Addendum: 07/11/20 at 0404 by JORGE LOPEZ RN No acute distress note, remains on 2LPM of oxygen. Denies any pain. Meds admin per order. Safety and comfort measures maintained.
[2020-07-11 04:46] VITALS: BP 134/68
[2020-07-11 05:23] LABS: BASOPHILS % (AUTO) 0.9 % (0.0-2.0); EOSINOPHILS % (AUTO) 2.4 % (0.0-3.0); HEMATOCRIT 29.9 % (37.0-47.0); HEMOGLOBIN 8.9 G/DL (12.0-16.0); LYMPHOCYTES % (AUTO) 28.9 % (20.0-45.0); MEAN CORPUSCULAR VOLUME 75 FL (80-99); MONOCYTES % (AUTO) 9.1 % (1.0-10.0); NEUTROPHILS % (AUTO) 58.7 % (45.0-75.0); PLATELET COUNT 278 K/UL (150-450); RED BLOOD COUNT 3.97 M/UL (4.20-5.40); WHITE BLOOD COUNT 11.2 K/UL (4.8-10.8)
[2020-07-11 05:44] LABS: ALANINE AMINOTRANSFERASE 46 U/L (12-78); ALBUMIN 2.7 G/DL (3.4-5.0); ALBUMIN/GLOBULIN RATIO 0.6 (1.0-2.7); ALKALINE PHOSPHATASE 125 U/L (46-116); ANION GAP 7 mmol/L (5-15); ASPARTATE AMINO TRANSFERASE 61 U/L (15-37); BILIRUBIN,TOTAL 0.6 MG/DL (0.2-1.0); BLOOD UREA NITROGEN 11 mg/dL (7-18); CALCIUM 9.1 MG/DL (8.5-10.1); CARBON DIOXIDE 29 MMOL/L (21-32); CHLORIDE 105 MMOL/L (98-107); CREATININE 0.9 MG/DL (0.55-1.30); POTASSIUM 4.1 MMOL/L (3.5-5.1); SODIUM 141 MMOL/L (136-145)
--- NOTE | 2020-07-11 07:21 | NUR ---
NURSE HAND-OFF REPORT: Important Events on Shift: No change in condition Patient Status: Diet: Pending Orders: Pending Results/Labs: Pending MD notification: Latest Vital Signs: Temperature 98.6 , Pulse 84 , B/P 134 /68 , Respiratory Rate 22 , O2 SAT 96 , Room Air, O2 Flow Rate 2.0 . Vital Sign Comment: EKG Rhythm: Sinus Rhythm Rhythm change?: N MD Notified?: - MD Response: Latest Crawford Fall Score: 60 Fall Risk: High Risk Safety Measures: Call light Within Reach, Bed Alarm Zone 1, Side Rails Side Rails x2, Bed position Low and Locked. Fall Precautions: Yellow Socks Yellow Gown Door Sign Patient Fall Education Report given to .
[2020-07-11 08:00] VITALS: BP 153/70
--- NOTE | 2020-07-11 08:56 | NUR ---
*-*DISCHARGE PLANNING*-* CLINICALS HAVE BEEN FAXED TO: [facility] P: [phone] F: [phone] PLACED A CALL TO SPEAK WITH PLUMBING DESIGNER, NO ANSWER, LEFT A VOICE MESSAGES.
--- NOTE | 2020-07-11 09:04 | Pulmonology Progress Note ---
Subjective ROS Limited/Unobtainable: Yes Interval Events: None new reported Constitutional: Denies: fever HEENT: Repors: no symptoms Respiratory: Reports: shortness of breath Cardiovascular: Reports: no symptoms Gastrointestinal/Abdominal: Reports: no symptoms Allergies: Coded Allergies: No Known Allergies (Unverified , 02/22/15) Objective Last 24 Hour Vital Signs Date Time Temp Pulse Resp B/P (MAP) Pulse Ox O2 Delivery O2 Flow Rate FiO2 07/11/20 08:00 95 07/11/20 08:00 98.0 94 20 153/70 (97) 98 07/11/20 06:03 84 07/11/20 04:46 98.6 92 22 134/68 (90) 96 07/11/20 00:00 97.7 104 20 157/74 (101) 95 07/11/20 00:00 102 07/10/20 21:00 Nasal Cannula 2.0 07/10/20 21:00 89 07/10/20 20:30 97.0 95 20 149/62 (91) 98 07/10/20 17:57 154/63 07/10/20 16:00 98.1 95 20 116/65 (82) 96 07/10/20 16:00 94 07/10/20 12:28 86 07/10/20 12:00 104 07/10/20 12:00 97.7 98 20 158/62 (94) 98 Intake and Output 07/10/20 07/11/20 19:00 07:00 Intake Total 510 ml Output Total 350 ml Balance 160 ml Intake Oral 510 ml Output Urine Total 350 ml # Voids 2 # Bowel Movements 1 1 General Appearance: no acute distress HEENT: atraumatic Respiratory: lungs clear Cardiovascular: normal rate, regular rhythm Abdomen: tender - RUQ Laboratory Tests 07/11/20 04:50: White Blood Count 11.2H, Red Blood Count 3.97L, Hemoglobin 8.9L, Hematocrit 29.9L, Mean Corpuscular Volume 75L, Mean Corpuscular Hemoglobin 22.4L, Mean Corpuscular Hemoglobin Concent 29.7L, Red Cell Distribution Width 22.0H, Platelet Count 278, Mean Platelet Volume 7.0, Neutrophils (%) (Auto) 58.7, Lymphocytes (%) (Auto) 28.9, Monocytes (%) (Auto) 9.1, Eosinophils (%) (Auto) 2.4, Basophils (%) (Auto) 0.9, Sodium Level 141, Potassium Level 4.1, Chloride Level 105, Carbon Dioxide Level 29, Anion Gap 7, Blood Urea Nitrogen 11, Crea tinine 0.9, Estimat Glomerular Filtration Rate > 60, Glucose Level 74, Calcium Level 9.1, Magnesium Level 2.0, Total Bilirubin 0.6, Aspartate Amino Transf (AST/SGOT) 61H, Alanine Aminotransferase (ALT/SGPT) 46, Alkaline Phosphatase 125H, Total Protein 7.4, Albumin 2.7L, Globulin 4.7, Albumin/Globulin Ratio 0.6L Current Medications Medications (Trade) Dose Ordered Sig/Yasmany Route PRN Reason Start Time Stop Time Status Last Admin Dose Admin Acetaminophen (Tylenol) 500 mg Q6H PRN ORAL Mild Pain (Pain Scale 1-3) 07/05/20 20:30 08/04/20 20:29 07/08/20 00:27 Amlodipine Besylate (Norvasc) 10 mg DAILY ORAL 07/07/20 09:00 08/06/20 08:59 07/10/20 08:30 Clonidine HCl (Catapres Tab) 0.1 mg Q6H PRN ORAL For High Blood Pressure 07/02/20 02:15 09/30/20 02:14 Docusate Sodium (Colace) 100 mg THREE TIMES A DAY ORAL 07/02/20 18:00 08/01/20 17:59 07/10/20 17:57 Lisinopril (ZestriL) 10 mg BID ORAL 07/06/20 18:00 08/03/20 08:59 07/10/20 17:57 Pantoprazole (Protonix) 40 mg EVERY 12 HOURS ORAL 07/02/20 21:00 08/01/20 20:59 07/10/20 21:15 Polyethylene Glycol (Miralax) 17 gm BEDTIME ORAL 07/05/20 21:00 08/04/20 20:59 07/10/20 21:15 Assessment/Plan Assessment/Plan 1. UTI - s/p Abx - f/u UCx negative (07/01) 2. Hypoxemia - Serial trops neg and 2D Echo EF 55-60% - Desaturates to 85% on room air during transfer, per PT -> now back on 2L NC - pt is pending dc home per primary MD -> pt will need either SNF or home with home oxygen; family refusing SNF -> will consult onsite case manager for home oxygen 3. Hypertensive urgency - now BP better controlled 4. COVID-19 negative (07/01) 5. DVT ppx - on SCD 6. Left base atelectasis on chest CT - Saturation <90% on room air -> continue low flow oxygen as needed 7. ? Liver cirrhosis - GI following - Abd US, hep panel The care for this patient was discussed with my supervising physician Time spent for this case was approximately 31 minutes Jovan Santos Jul 11, 2020 09:04
--- NOTE | 2020-07-11 09:19 | General Progress Note ---
Subjective ROS Limited/Unobtainable: Yes Allergies: Coded Allergies: No Known Allergies (Unverified , 02/22/15) Objective Last 24 Hour Vital Signs Date Time Temp Pulse Resp B/P (MAP) Pulse Ox O2 Delivery O2 Flow Rate FiO2 07/11/20 08:00 95 07/11/20 08:00 98.0 94 20 153/70 (97) 98 07/11/20 06:03 84 07/11/20 04:46 98.6 92 22 134/68 (90) 96 07/11/20 00:00 97.7 104 20 157/74 (101) 95 07/11/20 00:00 102 07/10/20 21:00 Nasal Cannula 2.0 07/10/20 21:00 89 07/10/20 20:30 97.0 95 20 149/62 (91) 98 07/10/20 17:57 154/63 07/10/20 16:00 98.1 95 20 116/65 (82) 96 07/10/20 16:00 94 07/10/20 12:28 86 07/10/20 12:00 104 07/10/20 12:00 97.7 98 20 158/62 (94) 98 Intake and Output 07/10/20 07/11/20 19:00 07:00 Intake Total 510 ml Output Total 350 ml Balance 160 ml Intake Oral 510 ml Output Urine Total 350 ml # Voids 2 # Bowel Movements 1 1 Laboratory Tests 07/11/20 04:50: White Blood Count 11.2H, Red Blood Count 3.97L, Hemoglobin 8.9L, Hematocrit 29.9L, Mean Corpuscular Volume 75L, Mean Corpuscular Hemoglobin 22.4L, Mean Corpuscular Hemoglobin Concent 29.7L, Red Cell Distribution Width 22.0H, Platelet Count 278, Mean Platelet Volume 7.0, Neutrophils (%) (Auto) 58.7, Lymphocytes (%) (Auto) 28.9, Monocytes (%) (Auto) 9.1, Eosinophils (%) (Auto) 2.4, Basophils (%) (Auto) 0.9, Sodium Level 141, Potassium Level 4.1, Chloride Level 105, Carbon Dioxide Level 29, Anion Gap 7, Blood Urea Nitrogen 11, Creatinine 0.9, Estimat Glomerular Filtration Rate > 60, Glucose Level 74, Calcium Level 9.1, Magnesium Level 2.0, Total Bilirubin 0.6, Aspartate Amino Transf (AST/SGOT) 61H, Alanine Aminotransferase (ALT/SGPT) 46, Alkaline Phosphatase 125H, Total Protein 7.4, Albumin 2.7L, Globulin 4.7, Albumin/Globulin Ratio 0.6L Height (Feet): 5 Height (Inches): 4.00 Weight (Pounds): 179 General Appearance: no apparent distress EENT: PERRL/EOMI Neck: supple Cardiovascular: normal peripheral pulses Respiratory/Chest: decreased breath sounds Abdomen: normal bowel sounds, non tender, soft Extremities: non-tender Assessment/Plan Problem List: (1) DMII (diabetes mellitus, type 2) ICD Codes: E11.9 - Type 2 diabetes mellitus without complications SNOMED: 99980130 (2) UTI (urinary tract infection) ICD Codes: N39.0 - Urinary tract infection, site not specified SNOMED: 35415247 (3) Iron deficiency anemia ICD Codes: D50.9 - Iron deficiency anemia, unspecified SNOMED: 97529778 (4) Hiatal hernia ICD Codes: K44.9 - Diaphragmatic hernia without obstruction or gangrene SNOMED: 75657570 (5) Abdominal pain ICD Codes: R10.9 - Unspecified abdominal pain SNOMED: 57250852 Status: progressing Assessment/Plan: iv iron fu H&H fu stool ob patient refusing EGD and colonoscopy fu hepatitis panel>>>positive for hep C needs out patient fu for hep C treatment fu abd us>>>> cirrhosis Charlie Kulkarni MD Jul 11, 2020 09:19
[2020-07-11] MEDS: Lisinopril 10mg tab ORAL SCH ×2 (09:46→18:06)
[2020-07-11] MEDS: Docusate 100mg cap ORAL SCH ×3 (09:46→18:06)
--- NOTE | 2020-07-11 09:47 | NUR ---
Observed patient at room air while sitting in a chair for 5 minutes patient's oxygen level ranged from 85%-94% on room air. Patient mainly stayed in the 88% range while sitting in chair. Her heart rate ranged in the low 90s. Patient was placed back on oxygen at 2 liters. Her oxygen saturation is 97% and heart rate 88.
--- NOTE | 2020-07-11 10:30 | Infectious Diseases Prog Note ---
Assessment/Plan Assessment/Plan IMPRESSION: 1. Atelectasis versus pneumonia treated 2. Pyuria and bacteriuria, ? UTI, treated 3. Diabetes mellitus. 4. Hypertensive, accelerated 5. Cirrhosis. 6. Anemia. 7. s/p cholecystectomy 8. Positive hepatitis C antibody RECOMMENDATION: Observe off antibiotic Subjective ROS Limited/Unobtainable: Yes Constitutional: Reports: no symptoms Respiratory: Reports: dry cough Cardiovascular: Denies: chest pain Allergies: Coded Allergies: No Known Allergies (Unverified , 02/22/15) Objective Last 24 Hour Vital Signs Date Time Temp Pulse Resp B/P (MAP) Pulse Ox O2 Delivery O2 Flow Rate FiO2 07/11/20 09:46 95 153/70 07/11/20 09:46 153/70 07/11/20 09:00 Nasal Cannula 2.0 07/11/20 08:00 95 07/11/20 08:00 98.0 94 20 153/70 (97) 98 07/11/20 06:03 84 07/11/20 04:46 98.6 92 22 134/68 (90) 96 07/11/20 00:00 97.7 104 20 157/74 (101) 95 07/11/20 00:00 102 07/10/20 21:00 Nasal Cannula 2.0 07/10/20 21:00 89 07/10/20 20:30 97.0 95 20 149/62 (91) 98 07/10/20 17:57 154/63 07/10/20 16:00 98.1 95 20 116/65 (82) 96 07/10/20 16:00 94 07/10/20 12:28 86 07/10/20 12:00 104 07/10/20 12:00 97.7 98 20 158/62 (94) 98 Height (Feet): 5 Height (Inches): 4.00 Weight (Pounds): 179 General Appearance: no acute distress HEENT: mucous membranes moist Respiratory/Chest: lungs clear, other - O2 by nasal cannula Cardiovascular: normal rate Abdomen: soft, non tender Extremities: no edema Neurologic/Psychiatric: alert, responsive Laboratory Tests Test 07/11/20 04:50 White Blood Count 11.2 K/UL (4.8-10.8) H Red Blood Count 3.97 M/UL (4.20-5.40) L Hemoglobin 8.9 G/DL (12.0-16.0) L Hematocrit 29.9 % (37.0-47.0) L Mean Corpuscular Volume 75 FL (80-99) L Mean Corpuscular Hemoglobin 22.4 PG (27.0-31.0) L Mean Corpuscular Hemoglobin Concent 29.7 G/DL (32.0-36.0) L Red Cell Distribution Width 22.0 % (11.6-14.8) H Platelet Count 278 K/UL (150-450) Mean Platelet Volume 7.0 FL (6.5-10.1) Neutrophils (%) (Auto) 58.7 % (45.0-75.0) Lymphocytes (%) (Auto) 28.9 % (20.0-45.0) Monocytes (%) (Auto) 9.1 % (1.0-10.0) Eosinophils (%) (Auto) 2.4 % (0.0-3.0) Basophils (%) (Auto) 0.9 % (0.0-2.0) Sodium Level 141 MMOL/L (136-145) Potassium Level 4.1 MMOL/L (3.5-5.1) Chloride Level 105 MMOL/L (98-107) Carbon Dioxide Level 29 MMOL/L (21-32) Anion Gap 7 mmol/L (5-15) Blood Urea Nitrogen 11 mg/dL (7-18) Creatinine 0.9 MG/DL (0.55-1.30) Estimat Glomerular Filtration Rate > 60 mL/min (>60) Glucose Level 74 MG/DL (74-106) Calcium Level 9.1 MG/DL (8.5-10.1) Magnesium Level 2.0 MG/DL (1.8-2.4) Total Bilirubin 0.6 MG/DL (0.2-1.0) Aspartate Amino Transf (AST/SGOT) 61 U/L (15-37) H Alanine Aminotransferase (ALT/SGPT) 46 U/L (12-78) Alkaline Phosphatase 125 U/L (46-116) H Total Protein 7.4 G/DL (6.4-8.2) Albumin 2.7 G/DL (3.4-5.0) L Globulin 4.7 g/dL Albumin/Globulin Ratio 0.6 (1.0-2.7) L Current Medications Medications (Trade) Dose Ordered Sig/Yasmany Route PRN Reason Start Time Stop Time Status Last Admin Dose Admin Acetaminophen (Tylenol) 500 mg Q6H PRN ORAL Mild Pain (Pain Scale 1-3) 07/05/20 20:30 08/04/20 20:29 07/08/20 00:27 Amlodipine Besylate (Norvasc) 10 mg DAILY ORAL 07/07/20 09:00 08/06/20 08:59 07/11/20 09:46 Clonidine HCl (Catapres Tab) 0.1 mg Q6H PRN ORAL For High Blood Pressure 07/02/20 02:15 09/30/20 02:14 Docusate Sodium (Colace) 100 mg THREE TIMES A DAY ORAL 07/02/20 18:00 08/01/20 17:59 07/11/20 09:46 Lisinopril (ZestriL) 10 mg BID ORAL 07/06/20 18:00 08/03/20 08:59 07/11/20 09:46 Pantoprazole (Protonix) 40 mg EVERY 12 HOURS ORAL 07/02/20 21:00 08/01/20 20:59 07/11/20 09:46 Polyethylene Glycol (Miralax) 17 gm BEDTIME ORAL 07/05/20 21:00 08/04/20 20:59 07/10/20 21:15 Keanu Goodson MD Jul 11, 2020 10:30
--- NOTE | 2020-07-11 10:40 | Nephrology Progress Note ---
Assessment/Plan Problem List: (1) Iron deficiency anemia (2) Hypertensive urgency (3) UTI (urinary tract infection) (4) DMII (diabetes mellitus, type 2) Assessment: Hemoglobin A1c 7.1 Assessment Hypertensive urgency Anemia, low MCV Weakness Hiatus hernia UTI DM Plan July 12: Labs reviewed. No new labs drawn today. Renal parameters stable. Continue per current management. July 11: Labs reviewed. Renal parameters stable. Continue per consultants. July 10: Labs reviewed. Renal parameters stable. Continue per consultants. July 09: Labs reviewed. Abnormal electrolytes addressed. Continue per consultants. July 08: Labs reviewed. Low magnesium addressed. Medication list reviewed. Continue per consultants. July 07: No new labs drawn today. Blood pressure stable. Will check lab tomorrow. Medication list reviewed. Continue per consultants. July 06: Labs reviewed. Renal parameters stable. Blood pressure is stable. Medication list reviewed. Blood pressure medication adjusted July 05: Labs reviewed. Blood pressure in check. Continue per consultants. Medication list reviewed. July 04: No blood drawn today. Blood pressure better controlled. Will check lab tomorrow. Continue to rest. July 03: Blood pressure needs better control, hence lisinopril added to Norvasc. IV iron initiated for low iron anemia. Continue per consultants. Stable from renal standpoint of view. Antibiotic for UTI in process. Subjective ROS Limited/Unobtainable: No Constitutional: Reports: malaise Objective Objective Last 24 Hour Vital Signs Date Time Temp Pulse Resp B/P (MAP) Pulse Ox O2 Delivery O2 Flow Rate FiO2 07/11/20 09:46 95 153/70 07/11/20 09:46 153/70 07/11/20 09:00 Nasal Cannula 2.0 07/11/20 08:00 95 07/11/20 08:00 98.0 94 20 153/70 (97) 98 07/11/20 06:03 84 07/11/20 04:46 98.6 92 22 134/68 (90) 96 07/11/20 00:00 97.7 104 20 157/74 (101) 95 07/11/20 00:00 102 07/10/20 21:00 Nasal Cannula 2.0 07/10/20 21:00 89 07/10/20 20:30 97.0 95 20 149/62 (91) 98 07/10/20 17:57 154/63 07/10/20 16:00 98.1 95 20 116/65 (82) 96 07/10/20 16:00 94 07/10/20 12:28 86 07/10/20 12:00 104 07/10/20 12:00 97.7 98 20 158/62 (94) 98 Intake and Output 07/10/20 07/11/20 19:00 07:00 Intake Total 510 ml Output Total 350 ml Balance 160 ml Intake Oral 510 ml Output Urine Total 350 ml # Voids 2 # Bowel Movements 1 1 Current Medications Medications (Trade) Dose Ordered Sig/Yasmany Route PRN Reason Start Time Stop Time Status Last Admin Dose Admin Acetaminophen (Tylenol) 500 mg Q6H PRN ORAL Mild Pain (Pain Scale 1-3) 07/05/20 20:30 08/04/20 20:29 07/08/20 00:27 Amlodipine Besylate (Norvasc) 10 mg DAILY ORAL 07/07/20 09:00 08/06/20 08:59 07/11/20 09:46 Clonidine HCl (Catapres Tab) 0.1 mg Q6H PRN ORAL For High Blood Pressure 07/02/20 02:15 09/30/20 02:14 Docusate Sodium (Colace) 100 mg THREE TIMES A DAY ORAL 07/02/20 18:00 08/01/20 17:59 07/11/20 09:46 Lisinopril (ZestriL) 10 mg BID ORAL 07/06/20 18:00 08/03/20 08:59 07/11/20 09:46 Pantoprazole (Protonix) 40 mg EVERY 12 HOURS ORAL 07/02/20 21:00 08/01/20 20:59 07/11/20 09:46 Polyethylene Glycol (Miralax) 17 gm BEDTIME ORAL 07/05/20 21:00 08/04/20 20:59 07/10/20 21:15 Laboratory Tests 07/11/20 04:50: White Blood Count 11.2H, Red Blood Count 3.97L, Hemoglobin 8.9L, Hematocrit 29.9L, Mean Corpuscular Volume 75L, Mean Corpuscular Hemoglobin 22.4L, Mean Corpuscular Hemoglobin Concent 29.7L, Red Cell Distribution Width 22.0H, Platelet Count 278, Mean Platelet Volume 7.0, Neutrophils (%) (Auto) 58.7, Lymphocytes (%) (Auto) 28.9, Monocytes (%) (Auto) 9.1, Eosinophils (%) (Auto) 2.4, Basophils (%) (Auto) 0.9, Sodium Level 141, Potassium Level 4.1, Chloride Level 105, Carbon Dioxide Level 29, Anion Gap 7, Blood Urea Nitrogen 11, Creatinine 0.9, Estimat Glomerular Filtration Rate > 60, Glucose Level 74, Calcium Level 9.1, Magnesium Level 2.0, Total Bilirubin 0.6, Aspartate Amino Transf (AST/SGOT) 61H, Alanine Aminotransferase (ALT/SGPT) 46, Alkaline Phosphatase 125H, Total Protein 7.4, Albumin 2.7L, Globulin 4.7, Albumin/Globu yang Ratio 0.6L Height (Feet): 5 Height (Inches): 4.00 Weight (Pounds): 179 General Appearance: no apparent distress, lethargic Cardiovascular: tachycardia Respiratory/Chest: decreased breath sounds Abdomen: distended Gordon Pritchett MD Jul 11, 2020 10:40
--- NOTE | 2020-07-11 11:18 | NUR ---
RD ASSESSMENT & RECOMMENDATIONS SEE CARE ACTIVITY FOR COMPLETE ASSESSMENT DAILY ESTIMATED NEEDS: Needs based on cardiac, DM 60kg abw 25-30 kcals/kg 0869-5624 total kcals 1-1.5 g protein/kg 60-90 g total protein 25-30 mL/kg 4624-4361 total fluid mLs NUTRITION DIAGNOSIS: Decreased sodium needs related to cardiac history as evidenced by pt adm w/ Hypertensive urgency, BP now improved(148/63). CURRENT DIET:CCHO LOW PO DIET RECOMMENDATIONS: Low Na / CCHO LOW diet ADDITIONAL RECOMMENDATIONS: 1) Add snacks in b/w meals w/ continued variable po intake 2) Rec POC BG, niss as needed 3) Obtain calibrated bed scale wts 4) Add Glucerna w/ meals, currently w/ poor to fair po intake
--- NOTE | 2020-07-11 11:37 | Cardiac Electrophysiology PN ---
Assessment/Plan Assessment/Plan 1. Shortness of breath. EKG shows sinus rhythm with nonspecific ST-T wave abnormalities. Ruled out [place] protocol. EF 65% on echocardiogram. 2. Accelerated hypertension. On Norvasc 5 po bid and Lisinopril 10 daily On p.r.n. clonidine. 3. Shortness of breath and pneumonia. On 2 liter NC. Fu by Dr. Chaney. 4. Left base atelectasis on chest CT and possible pneumonia DW RN DC pending Subjective Subjective No CP or SOB. DC home pending. Back on 2 liter nasal cannula Objective Last 24 Hour Vital Signs Date Time Temp Pulse Resp B/P (MAP) Pulse Ox O2 Delivery O2 Flow Rate FiO2 07/11/20 09:46 95 153/70 07/11/20 09:46 153/70 07/11/20 09:00 Nasal Cannula 2.0 07/11/20 08:00 95 07/11/20 08:00 98.0 94 20 153/70 (97) 98 07/11/20 06:03 84 07/11/20 04:46 98.6 92 22 134/68 (90) 96 07/11/20 00:00 97.7 104 20 157/74 (101) 95 07/11/20 00:00 102 07/10/20 21:00 Nasal Cannula 2.0 07/10/20 21:00 89 07/10/20 20:30 97.0 95 20 149/62 (91) 98 07/10/20 17:57 154/63 07/10/20 16:00 98.1 95 20 116/65 (82) 96 07/10/20 16:00 94 07/10/20 12:28 86 07/10/20 12:00 104 07/10/20 12:00 97.7 98 20 158/62 (94) 98 Intake and Output 07/10/20 07/11/20 19:00 07:00 Intake Total 510 ml Output Total 350 ml Balance 160 ml Intake Oral 510 ml Output Urine Total 350 ml # Voids 2 # Bowel Movements 1 1 Laboratory Tests Test 07/11/20 04:50 White Blood Count 11.2 K/UL (4.8-10.8) H Red Blood Count 3.97 M/UL (4.20-5.40) L Hemoglobin 8.9 G/DL (12.0-16.0) L Hematocrit 29.9 % (37.0-47.0) L Mean Corpuscular Volume 75 FL (80-99) L Mean Corpuscular Hemoglobin 22.4 PG (27.0-31.0) L Mean Corpuscular Hemoglobin Concent 29.7 G/DL (32.0-36.0) L Red Cell Distribution Width 22.0 % (11.6-14.8) H Platelet Count 278 K/UL (150-450) Mean Platelet Volume 7.0 FL (6.5-10.1) Neutrophils (%) (Auto) 58.7 % (45.0-75.0) Lymphocytes (%) (Auto) 28.9 % (20.0-45.0) Monocytes (%) (Auto) 9.1 % (1.0-10.0) Eosinophils (%) (Auto) 2.4 % (0.0-3.0) Basophils (%) (Auto) 0.9 % (0.0-2.0) Sodium Level 141 MMOL/L (136-145) Potassium Level 4.1 MMOL/L (3.5-5.1) Chloride Level 105 MMOL/L (98-107) Carbon Dioxide Level 29 MMOL/L (21-32) Anion Gap 7 mmol/L (5-15) Blood Urea Nitrogen 11 mg/dL (7-18) Creatinine 0.9 MG/DL (0.55-1.30) Estimat Glomerular Filtration Rate > 60 mL/min (>60) Glucose Level 74 MG/DL (74-106) Calcium Level 9.1 MG/DL (8.5-10.1) Magnesium Level 2.0 MG/DL (1.8-2.4) Total Bilirubin 0.6 MG/DL (0.2-1.0) Aspartate Amino Transf (AST/SGOT) 61 U/L (15-37) H Alanine Aminotransferase (ALT/SGPT) 46 U/L (12-78) Alkaline Phosphatase 125 U/L (46-116) H Total Protein 7.4 G/DL (6.4-8.2) Albumin 2.7 G/DL (3.4-5.0) L Globulin 4.7 g/dL Albumin/Globulin Ratio 0.6 (1.0-2.7) L Objective HEAD AND NECK: No JVD. LUNGS: Clear. CARDIOVASCULAR: Regular S1 and S2 with no gallop or murmur. ABDOMEN: Soft. EXTREMITIES: 1+ pitting edema. Jude Stone MD Jul 11, 2020 11:37
--- NOTE | 2020-07-11 11:47 | NUR ---
INSURANCE CLINICALS FAXED TO [facility]#[phone] fax#[phone]
[2020-07-11 12:00] VITALS: BP 136/68
--- NOTE | 2020-07-11 12:10 | NUR ---
*-*DISCHARGE PLANNING*-* PATIENT HAS BEEN REFERRED TO: [facility] P: [phone] S/W [place]ANDA[place], INTAKE NOT AVAILABLE , WILL CALL BACK . [facility] P: [phone] S/W [place], INTAKE WILL CALL BACK AFTER REVIEW. [facility] P: [phone] S/W CEASAR, WILL CALL BACK AFTER REVIEW. [facility] P: [phone] S/W [place], FOLLOWING UP WITH THE INSURANCE , WILL CALL BACK AFTER REVIEW.
--- NOTE | 2020-07-11 15:52 | NUR ---
MILL WASHER NOTES SPOKE WITH RAYSHAWN ALMANZAR MADE AWARE OF NEEDED AUTHORIZATION FOR HOME OXYGEN TO BE SENT TO [facility]. PER RAYSHAWN SHE WILL FAX THE AUTHORIZATION NOW. LEFT MESSAGE FOR [facility] TO VERIFY RECEIPT OF AUTHORIZATION, NO ANSWER. MESSAGE LEFT. SPOKE WITH MONI AGUILAR ON O2 STATUS.
[2020-07-11 16:00] VITALS: BP 147/64
--- NOTE | 2020-07-11 19:00 | NUR ---
NURSE NOTES: Report received from CORY Delgado. Upon assessment pt is sitting in chair next to bed. A/Ox4; PERRLA. No c/o pain. NSR on monitor. Vitals WNL. Saturating 94% on 2L N/C. Encouraged pt back to bed but prefers to sit at bedside since it's "easier for her to go to the commode." No distress noted. Bed kept in lowest and locked position. Call light within reach. Will monitor.
[2020-07-11 20:00] VITALS: BP 137/63
[2020-07-11] MEDS: Miralax 17gm pkt ORAL SCH (20:11)
--- NOTE | 2020-07-11 21:13 | General Progress Note ---
Subjective ROS Limited/Unobtainable: Yes Allergies: Coded Allergies: No Known Allergies (Unverified , 02/22/15) Objective Last 24 Hour Vital Signs Date Time Temp Pulse Resp B/P (MAP) Pulse Ox O2 Delivery O2 Flow Rate FiO2 07/11/20 20:00 98 07/11/20 20:00 97.8 94 21 137/63 (87) 97 07/11/20 18:06 147/64 07/11/20 16:00 88 07/11/20 16:00 97.9 90 20 147/64 (91) 99 07/11/20 12:00 86 07/11/20 12:00 98.0 87 20 136/68 (90) 100 07/11/20 09:46 95 153/70 07/11/20 09:46 153/70 07/11/20 09:00 Nasal Cannula 2.0 07/11/20 08:00 95 07/11/20 08:00 98.0 94 20 153/70 (97) 98 07/11/20 06:03 84 07/11/20 04:46 98.6 92 22 134/68 (90) 96 07/11/20 00:00 97.7 104 20 157/74 (101) 95 07/11/20 00:00 102 Intake and Output 07/10/20 07/11/20 19:00 07:00 Intake Total 510 ml Output Total 350 ml Balance 160 ml Intake Oral 510 ml Output Urine Total 350 ml # Voids 2 # Bowel Movements 1 1 Laboratory Tests 07/11/20 04:50: White Blood Count 11.2H, Red Blood Count 3.97L, Hemoglobin 8.9L, Hematocrit 29.9L, Mean Corpuscular Volume 75L, Mean Corpuscular Hemoglobin 22.4L, Mean Corpuscular Hemoglobin Concent 29.7L, Red Cell Distribution Width 22.0H, Platelet Count 278, Mean Platelet Volume 7.0, Neutrophils (%) (Auto) 58.7, Lymphocytes (%) (Auto) 28.9, Monocytes (%) (Auto) 9.1, Eosinophils (%) (Auto) 2.4, Basophils (%) (Auto) 0.9, Sodium Level 141, Potassium Level 4.1, Chloride Level 105, Carbon Dioxide Level 29, Anion Gap 7, Blood Urea Nitrogen 11, Creatinine 0.9, Estimat Glomerular Filtration Rate > 60, Glucose Level 74, Calcium Level 9.1, Magnesium Level 2.0, Total Bilirubin 0.6, Aspartate Amino Transf (AST/SGOT) 61H, Alanine Aminotransferase (ALT/SGPT) 46, Alkaline Phosphatase 125H, Total Protein 7.4, Albumin 2.7L, Globulin 4.7, Albumin/Globulin Ratio 0.6L Height (Feet): 5 Height (Inches): 4.00 Weight (Pounds): 179 Assessment/Plan Problem List: (1) Weakness ICD Codes: R53.1 - Weakness SNOMED: 88008303 (2) Hypertensive urgency ICD Codes: I16.0 - Hypertensive urgency SNOMED: 437461774 (3) UTI (urinary tract infection) ICD Codes: N39.0 - Urinary tract infection, site not specified SNOMED: 17751885 (4) DMII (diabetes mellitus, type 2) ICD Codes: E11.9 - Type 2 diabetes mellitus without complications SNOMED: 54829585 (5) Abdominal pain ICD Codes: R10.9 - Unspecified abdominal pain SNOMED: 75314274 (6) Hiatal hernia ICD Codes: K44.9 - Diaphragmatic hernia without obstruction or gangrene SNOMED: 24791722 Status: progressing Assessment/Plan: resp insuff supportive rx prn oxgyen needs home oxygen weak and debilitated Swathi Washington MD Jul 11, 2020 21:13
[2020-07-11] MEDS: Acetaminophen 500mg (ES) tab ORAL PRN (23:20)
[2020-07-12] VITALS (7 sets, daily range): BP systolic 120–167; BP diastolic 53–79
--- NOTE | 2020-07-12 00:35 | NUR ---
NURSE HAND-OFF REPORT: Important Events on Shift: No changes; stable Patient Status: Stable Diet: CCHO Pending Orders: Pending Results/Labs: Pending MD notification: Latest Vital Signs: Temperature 98.2 , Pulse 91 , B/P 147 /68 , Respiratory Rate 20 , O2 SAT 97 , Room Air, O2 Flow Rate 2.0 . Vital Sign Comment: EKG Rhythm: Sinus Rhythm Rhythm change?: N MD Notified?: - MD Response: Latest Crawford Fall Score: 60 Fall Risk: High Risk Safety Measures: Call light Within Reach, Bed Alarm Zone 1, Side Rails Side Rails x2, Bed position Low and Locked. Fall Precautions: Yellow Socks Yellow Gown Door Sign Patient Fall Education Report given to CORY Flores.
--- NOTE | 2020-07-12 00:40 | NUR ---
NURSE NOTES: Report received from CORY Boyle. Patient is awake on bed in stable condition. On oxygen via nasal cannula @ 2Lpm saturating 95%. IV site is on left forearm g-22 saline locked that is patent and intact. Safety measures are in place, bed in lowest and locked position, side rails up x 2, call light button and bedside table within reach, instructed to call for any assistance needed, will continue plan of care.
--- NOTE | 2020-07-12 03:00 | NUR ---
NURSE NOTES: Patient had a BM, collected a sample for her Occult blood stool and sent to lab. Will follow up the result.
--- NOTE | 2020-07-12 04:20 | NUR ---
NURSE NOTES: Sponge bath done and changed all her linens. Patient prefers to sit on the chair and states that she's much more comfortable in that position, instructed on fall prevention. Will continue to monitor.
--- NOTE | 2020-07-12 07:25 | NUR ---
NURSE HAND-OFF REPORT: Important Events on Shift: Patient has been resting well the whole shift with no complaints made. OBS specimen sent. Patient Status: Patient is awake on bed in stable condition, plan of care endorsed. Diet: [facility] diet Pending Orders: none Pending Results/Labs:none Pending MD notification:none Latest Vital Signs: Temperature 97.8 , Pulse 94 , B/P 138 /61 , Respiratory Rate 24 , O2 SAT 97 , Room Air, O2 Flow Rate 2.0 . Vital Sign Comment: stable EKG Rhythm: Sinus Rhythm Rhythm change?: N MD Notified?: - MD Response: Latest Crawford Fall Score: 60 Fall Risk: High Risk Safety Measures: Call light Within Reach, Bed Alarm Zone 1, Side Rails Side Rails x2, Bed position Low and Locked. Fall Precautions: Yellow Socks Yellow Gown Door Sign Patient Fall Education Report given to CORY Delgado.
--- NOTE | 2020-07-12 08:17 | Cardiac Electrophysiology PN ---
Assessment/Plan Assessment/Plan 1. Shortness of breath. EKG shows sinus rhythm with nonspecific ST-T wave abnormalities. Ruled out [place] protocol. EF 65% on echocardiogram. 2. Accelerated hypertension. On Norvasc 5 po bid and Lisinopril 10 daily On p.r.n. clonidine. 3. Shortness of breath and pneumonia. On 2 liter NC. Fu by Dr. Chaney. 4. Left base atelectasis on chest CT and possible pneumonia 5. Anemia, Stool OB pending. Refusing EGD and colonoscopy per Dr Cayla MARTINEZ RN DC pending Subjective Subjective No CP or SOB. DC home pending. Still on 2 liter nasal cannula. Stool OB is pending. Refused EGD and colonoscopy Objective Last 24 Hour Vital Signs Date Time Temp Pulse Resp B/P (MAP) Pulse Ox O2 Delivery O2 Flow Rate FiO2 07/12/20 04:00 92 07/12/20 04:00 97.8 94 24 138/61 (86) 97 07/12/20 00:00 98.2 98 20 147/68 (94) 97 07/12/20 00:00 91 07/11/20 23:50 97.8 07/11/20 21:00 Nasal Cannula 2.0 07/11/20 20:00 98 07/11/20 20:00 97.8 94 21 137/63 (87) 97 07/11/20 18:06 147/64 07/11/20 16:00 88 07/11/20 16:00 97.9 90 20 147/64 (91) 99 07/11/20 12:00 86 07/11/20 12:00 98.0 87 20 136/68 (90) 100 07/11/20 09:46 95 153/70 07/11/20 09:46 153/70 07/11/20 09:00 Nasal Cannula 2.0 Intake and Output 07/11/20 07/12/20 19:00 07:00 Intake Total 500 ml Output Total 300 ml Balance 200 ml Intake Oral 500 ml Output Urine Total 300 ml # Voids 3 # Bowel Movements 1 Laboratory Tests Test 07/12/20 03:00 Stool Occult Blood Pending Objective HEAD AND NECK: No JVD. LUNGS: Clear. CARDIOVASCULAR: Regular S1 and S2 with no gallop or murmur. ABDOMEN: Soft. EXTREMITIES: 1+ pitting edema. Jude Stone MD Jul 12, 2020 08:17
--- NOTE | 2020-07-12 08:18 | Cardiac Electrophysiology PN ---
Assessment/Plan Assessment/Plan 1. Shortness of breath. EKG shows sinus rhythm with nonspecific ST-T wave abnormalities. Ruled out [place] protocol. EF 65% on echocardiogram. 2. Accelerated hypertension. On Norvasc 10 po daily and Lisinopril 10 po bid On p.r.n. clonidine. 3. Shortness of breath and pneumonia. On 2 liter NC. Fu by Dr. Chaney. 4. Left base atelectasis on chest CT and possible pneumonia 5. Anemia, Stool OB pending. Refusing EGD and colonoscopy per Dr Cayla MARTINEZ RN DC pending Subjective Subjective No CP or SOB. DC home pending. Still on 2 liter nasal cannula. Stool OB is pending. Refused EGD and colonoscopy Objective Last 24 Hour Vital Signs Date Time Temp Pulse Resp B/P (MAP) Pulse Ox O2 Delivery O2 Flow Rate FiO2 07/12/20 04:00 92 07/12/20 04:00 97.8 94 24 138/61 (86) 97 07/12/20 00:00 98.2 98 20 147/68 (94) 97 07/12/20 00:00 91 07/11/20 23:50 97.8 07/11/20 21:00 Nasal Cannula 2.0 07/11/20 20:00 98 07/11/20 20:00 97.8 94 21 137/63 (87) 97 07/11/20 18:06 147/64 07/11/20 16:00 88 07/11/20 16:00 97.9 90 20 147/64 (91) 99 07/11/20 12:00 86 07/11/20 12:00 98.0 87 20 136/68 (90) 100 07/11/20 09:46 95 153/70 07/11/20 09:46 153/70 07/11/20 09:00 Nasal Cannula 2.0 Intake and Output 07/11/20 07/12/20 19:00 07:00 Intake Total 500 ml Output Total 300 ml Balance 200 ml Intake Oral 500 ml Output Urine Total 300 ml # Voids 3 # Bowel Movements 1 Laboratory Tests Test 07/12/20 03:00 Stool Occult Blood Pending Objective HEAD AND NECK: No JVD. LUNGS: Clear. CARDIOVASCULAR: Regular S1 and S2 with no gallop or murmur. ABDOMEN: Soft. EXTREMITIES: 1+ pitting edema. Jude Stone MD 10, 2021 08:18
[2020-07-12] MEDS: Docusate 100mg cap ORAL SCH ×3 (09:44→17:14)
[2020-07-12] MEDS: Lisinopril 10mg tab ORAL SCH ×2 (09:44→17:14)
--- NOTE | 2020-07-12 11:02 | Pulmonology Progress Note ---
Subjective ROS Limited/Unobtainable: Yes Interval Events: None new reported Constitutional: Reports: no symptoms HEENT: Repors: no symptoms Respiratory: Reports: shortness of breath Cardiovascular: Reports: no symptoms Gastrointestinal/Abdominal: Reports: no symptoms Allergies: Coded Allergies: No Known Allergies (Unverified , 02/22/15) Objective Last 24 Hour Vital Signs Date Time Temp Pulse Resp B/P (MAP) Pulse Ox O2 Delivery O2 Flow Rate FiO2 07/12/20 09:44 139/53 07/12/20 09:43 92 139/53 07/12/20 08:00 97.5 89 24 139/53 (81) 100 07/12/20 08:00 92 07/12/20 04:00 92 07/12/20 04:00 97.8 94 24 138/61 (86) 97 07/12/20 00:00 98.2 98 20 147/68 (94) 97 07/12/20 00:00 91 07/11/20 23:50 97.8 07/11/20 21:00 Nasal Cannula 2.0 07/11/20 20:00 98 07/11/20 20:00 97.8 94 21 137/63 (87) 97 07/11/20 18:06 147/64 07/11/20 16:00 88 07/11/20 16:00 97.9 90 20 147/64 (91) 99 07/11/20 12:00 86 07/11/20 12:00 98.0 87 20 136/68 (90) 100 Intake and Output 07/11/20 07/12/20 19:00 07:00 Intake Total 500 ml Output Total 300 ml Balance 200 ml Intake Oral 500 ml Output Urine Total 300 ml # Voids 3 # Bowel Movements 1 General Appearance: no acute distress HEENT: atraumatic Respiratory: lungs clear Cardiovascular: normal rate, regular rhythm Abdomen: tender - RUQ Laboratory Tests 07/12/20 03:00: Stool Occult Blood Positive Current Medications Medications (Trade) Dose Ordered Sig/Yasmany Route PRN Reason Start Time Stop Time Status Last Admin Dose Admin Acetaminophen (Tylenol) 500 mg Q6H PRN ORAL Mild Pain (Pain Scale 1-3) 07/05/20 20:30 08/04/20 20:29 07/11/20 23:20 Amlodipine Besylate (Norvasc) 10 mg DAILY ORAL 07/07/20 09:00 08/06/20 08:59 07/12/20 09:43 Clonidine HCl (Catapres Tab) 0.1 mg Q6H PRN ORAL For High Blood Pressure 07/02/20 02:15 09/30/20 02:14 Docusate Sodium (Colace) 100 mg THREE TIMES A DAY ORAL 07/02/20 18:00 08/01/20 17:59 07/12/20 09:44 Lisinopril (ZestriL) 10 mg BID ORAL 07/06/20 18:00 08/03/20 08:59 07/12/20 09:44 Pantoprazole (Protonix) 40 mg EVERY 12 HOURS ORAL 07/02/20 21:00 08/01/20 20:59 07/12/20 09:44 Polyethylene Glycol (Miralax) 17 gm BEDTIME ORAL 07/05/20 21:00 08/04/20 20:59 07/11/20 20:11 Assessment/Plan Assessment/Plan 1. UTI - s/p Abx - f/u UCx negative (07/01) 2. Hypoxemia - Serial trops neg and 2D Echo EF 55-60% - Desaturates to 85% on room air during transfer, per PT -> now back on 2L NC - pt is pending dc home per primary MD -> pt will need either SNF or home with home oxygen; family refusing SNF -> will consult family preservation caseworker for home oxygen 3. Hypertensive urgency - now BP better controlled 4. COVID-19 negative (07/01) 5. DVT ppx - on SCD 6. Left base atelectasis on chest CT - Saturation <90% on room air -> continue low flow oxygen as needed 7. ? Liver cirrhosis - GI following - Abd US, hep panel 7. Anemia - Stool OB (+) -> pt refusing EGD/[place] per GI maintenance shop manager working on authorization of home oxygen The care for this patient was discussed with my supervising physician Time spent for this case was approximately 31 minutes Jovan Santos Jul 12, 2020 11:02
--- NOTE | 2020-07-12 11:10 | NUR ---
PT NOTE Attempted to see patient for PT treatment. Patient declining to participate with PT, c/o not feeling well, c/o neck pain rated at 10/10. Danny RAY notified, will follow.
--- NOTE | 2020-07-12 12:50 | NUR ---
Patient states that she is nauseous and feels dizzy and her eyes hurt. Contacted Dr. Washington who ordered patient to have zofran every 6 hours PRN.
--- NOTE | 2020-07-12 12:53 | Infectious Diseases Prog Note ---
Assessment/Plan Assessment/Plan IMPRESSION: 1. Atelectasis versus pneumonia treated 2. Pyuria and bacteriuria, ? UTI, treated 3. Diabetes mellitus. 4. Hypertensive, accelerated 5. Cirrhosis. 6. Anemia. 7. 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 RECOMMENDATION: Observe off antibiotic f/u CBC Ophthalmology evaluation Subjective ROS Limited/Unobtainable: Yes HEENT: Reports: visual change, other - can not see with left eye Allergies: Coded Allergies: No Known Allergies (Unverified , 02/22/15) Objective Last 24 Hour Vital Signs Date Time Temp Pulse Resp B/P (MAP) Pulse Ox O2 Delivery O2 Flow Rate FiO2 07/12/20 09:44 139/53 07/12/20 09:43 92 139/53 07/12/20 08:00 97.5 89 24 139/53 (81) 100 07/12/20 08:00 92 07/12/20 04:00 92 07/12/20 04:00 97.8 94 24 138/61 (86) 97 07/12/20 00:00 98.2 98 20 147/68 (94) 97 07/12/20 00:00 91 07/11/20 23:50 97.8 07/11/20 21:00 Nasal Cannula 2.0 07/11/20 20:00 98 07/11/20 20:00 97.8 94 21 137/63 (87) 97 07/11/20 18:06 147/64 07/11/20 16:00 88 07/11/20 16:00 97.9 90 20 147/64 (91) 99 Height (Feet): 5 Height (Inches): 4.00 Weight (Pounds): 179 General Appearance: no acute distress HEENT: mucous membranes moist Respiratory/Chest: lungs clear Cardiovascular: normal rate Abdomen: soft, non tender Extremities: other - mild legs edema Neurologic/Psychiatric: alert, responsive Laboratory Tests Test 07/12/20 03:00 Stool Occult Blood Positive (NEGATIVE) Current Medications Medications (Trade) Dose Ordered Sig/Yasmany Route PRN Reason Start Time Stop Time Status Last Admin Dose Admin Acetaminophen (Tylenol) 500 mg Q6H PRN ORAL Mild Pain (Pain Scale 1-3) 07/05/20 20:30 08/04/20 20:29 07/11/20 23:20 Amlodipine Besylate (Norvasc) 10 mg DAILY ORAL 07/07/20 09:00 08/06/20 08:59 07/12/20 09:43 Clonidine HCl (Catapres Tab) 0.1 mg Q6H PRN ORAL For High Blood Pressure 07/02/20 02:15 09/30/20 02:14 Docusate Sodium (Colace) 100 mg THREE TIMES A DAY ORAL 07/02/20 18:00 08/01/20 17:59 07/12/20 09:44 Lisinopril (ZestriL) 10 mg BID ORAL 07/06/20 18:00 08/03/20 08:59 07/12/20 09:44 Ondansetron HCl (Zofran) 4 mg Q6H PRN IVP Nausea & Vomiting 07/12/20 12:15 08/11/20 12:14 Pantoprazole (Protonix) 40 mg EVERY 12 HOURS ORAL 07/02/20 21:00 08/01/20 20:59 07/12/20 09:44 Polyethylene Glycol (Miralax) 17 gm BEDTIME ORAL 07/05/20 21:00 08/04/20 20:59 07/11/20 20:11 Keanu Goodson MD Jul 12, 2020 12:53
--- NOTE | 2020-07-12 13:56 | NUR ---
INSURANCE CLINICALS FAXED TO [facility]#[phone] fax#[phone]
--- NOTE | 2020-07-12 15:54 | General Progress Note ---
Subjective ROS Limited/Unobtainable: Yes Allergies: Coded Allergies: No Known Allergies (Unverified , 02/22/15) Objective Last 24 Hour Vital Signs Date Time Temp Pulse Resp B/P (MAP) Pulse Ox O2 Delivery O2 Flow Rate FiO2 07/12/20 12:00 97.7 107 20 156/66 (96) 100 07/12/20 12:00 102 07/12/20 09:44 139/53 07/12/20 09:43 92 139/53 07/12/20 09:00 Nasal Cannula 2.0 07/12/20 08:00 97.5 89 24 139/53 (81) 100 07/12/20 08:00 92 07/12/20 04:00 92 07/12/20 04:00 97.8 94 24 138/61 (86) 97 07/12/20 00:00 98.2 98 20 147/68 (94) 97 07/12/20 00:00 91 07/11/20 23:50 97.8 07/11/20 21:00 Nasal Cannula 2.0 07/11/20 20:00 98 07/11/20 20:00 97.8 94 21 137/63 (87) 97 07/11/20 18:06 147/64 07/11/20 16:00 88 07/11/20 16:00 97.9 90 20 147/64 (91) 99 Intake and Output 07/11/20 07/12/20 19:00 07:00 Intake Total 500 ml Output Total 300 ml Balance 200 ml Intake Oral 500 ml Output Urine Total 300 ml # Voids 3 # Bowel Movements 1 Laboratory Tests 07/12/20 03:00: Stool Occult Blood Positive Height (Feet): 5 Height (Inches): 4.00 Weight (Pounds): 179 General Appearance: no apparent distress EENT: normal ENT inspection Neck: supple Cardiovascular: normal rate Respiratory/Chest: decreased breath sounds Abdomen: hypoactive bowel sounds Extremities: non-tender Assessment/Plan Problem List: (1) DMII (diabetes mellitus, type 2) ICD Codes: E11.9 - Type 2 diabetes mellitus without complications SNOMED: 03656376 (2) UTI (urinary tract infection) ICD Codes: N39.0 - Urinary tract infection, site not specified SNOMED: 59110121 (3) Iron deficiency anemia ICD Codes: D50.9 - Iron deficiency anemia, unspecified SNOMED: 96320645 (4) Hiatal hernia ICD Codes: K44.9 - Diaphragmatic hernia without obstruction or gangrene SNOMED: 76735833 (5) Abdominal pain ICD Codes: R10.9 - Unspecified abdominal pain SNOMED: 05502319 Status: progressing Assessment/Plan: iv iron fu H&H fu stool ob patient refusing EGD and colonoscopy fu hepatitis panel>>>positive for hep C needs out patient fu for hep C treatment fu abd us>>>> cirrhosis Charlie Kulkarni MD Jul 12, 2020 15:54
--- NOTE | 2020-07-12 17:54 | NUR ---
Received call back from Dr. Kulkarni. Advised of patient's positive occult blood stool. He advised he would speak to the patient on tomorrow to determine if she would like to have further testing.
--- NOTE | 2020-07-12 19:41 | NUR ---
NURSE NOTES: Received patient up on chair with eyes closed, easily arousable. O2 via NC at 2LPM in place, no SOB or acute distress. Call light within reach. Will continue plan of care.
--- NOTE | 2020-07-12 19:58 | General Progress Note ---
Subjective ROS Limited/Unobtainable: Yes Allergies: Coded Allergies: No Known Allergies (Unverified , 02/22/15) Objective Last 24 Hour Vital Signs Date Time Temp Pulse Resp B/P (MAP) Pulse Ox O2 Delivery O2 Flow Rate FiO2 07/12/20 17:14 144/59 07/12/20 16:00 89 07/12/20 16:00 97.5 98 20 144/59 (87) 95 07/12/20 12:00 97.7 107 20 156/66 (96) 100 07/12/20 12:00 102 07/12/20 09:44 139/53 07/12/20 09:43 92 139/53 07/12/20 09:00 Nasal Cannula 2.0 07/12/20 08:00 97.5 89 24 139/53 (81) 100 07/12/20 08:00 92 07/12/20 04:00 92 07/12/20 04:00 97.8 94 24 138/61 (86) 97 07/12/20 00:00 98.2 98 20 147/68 (94) 97 07/12/20 00:00 91 07/11/20 23:50 97.8 07/11/20 21:00 Nasal Cannula 2.0 07/11/20 20:00 98 07/11/20 20:00 97.8 94 21 137/63 (87) 97 Intake and Output 07/11/20 07/12/20 19:00 07:00 Intake Total 500 ml Output Total 300 ml Balance 200 ml Intake Oral 500 ml Output Urine Total 300 ml # Voids 3 # Bowel Movements 1 Laboratory Tests 07/12/20 03:00: Stool Occult Blood Positive Height (Feet): 5 Height (Inches): 4.00 Weight (Pounds): 179 Assessment/Plan Problem List: (1) Weakness ICD Codes: R53.1 - Weakness SNOMED: 98828873 (2) Hypertensive urgency ICD Codes: I16.0 - Hypertensive urgency SNOMED: 682015286 (3) UTI (urinary tract infection) ICD Codes: N39.0 - Urinary tract infection, site not specified SNOMED: 44772769 (4) DMII (diabetes mellitus, type 2) ICD Codes: E11.9 - Type 2 diabetes mellitus without complications SNOMED: 67991109 (5) Abdominal pain ICD Codes: R10.9 - Unspecified abdominal pain SNOMED: 85890257 (6) Hiatal hernia ICD Codes: K44.9 - Diaphragmatic hernia without obstruction or gangrene SNOMED: 39883572 Status: progressing Assessment/Plan: dm pna exertional dyspnea check lytes and sugar needs home oxygen weak Swathi Washington MD Jul 12, 2020 19:58
[2020-07-12] MEDS: Miralax 17gm pkt ORAL SCH (20:59)
[2020-07-13 04:00] VITALS: BP 119/66
[2020-07-13 06:12] LABS: BASOPHILS % (AUTO) 1.3 % (0.0-2.0); EOSINOPHILS % (AUTO) 4.6 % (0.0-3.0); HEMATOCRIT 30.7 % (37.0-47.0); LYMPHOCYTES % (AUTO) 29.3 % (20.0-45.0); MEAN CORPUSCULAR VOLUME 77 FL (80-99); MONOCYTES % (AUTO) 8.5 % (1.0-10.0); NEUTROPHILS % (AUTO) 56.3 % (45.0-75.0); PLATELET COUNT 272 K/UL (150-450); RED BLOOD COUNT 3.98 M/UL (4.20-5.40); RED CELL DISTRIBUTION WIDTH 23.7 % (11.6-14.8); WHITE BLOOD COUNT 9.7 K/UL (4.8-10.8)
--- NOTE | 2020-07-13 06:26 | NUR ---
NURSE HAND-OFF REPORT: Important Events on Shift: Patient Status: alert Diet: ccho Pending Orders: Pending Results/Labs: Pending MD notification: Latest Vital Signs: Temperature 98.6 , Pulse 76 , B/P 119 /66 , Respiratory Rate 20 , O2 SAT 95 , Room Air, O2 Flow Rate 2.0 . Vital Sign Comment: EKG Rhythm: Sinus Rhythm Rhythm change?: N MD Notified?: - MD Response: Latest Crawford Fall Score: 60 Fall Risk: High Risk Safety Measures: Call light Within Reach, Bed Alarm Zone 1, Side Rails Side Rails x2, Bed position Low and Locked. Fall Precautions: Yellow Socks Yellow Gown Door Sign Patient Fall Education . Addendum: 07/13/20 at 0728 by Shanda Angel RN NURSE NOTES: Report given to Sara RAY
[2020-07-13 08:00] VITALS: BP 115/67
[2020-07-13 08:57] VITALS: BP 115/67
[2020-07-13] MEDS: Docusate 100mg cap ORAL SCH (08:57)
[2020-07-13] MEDS: Lisinopril 10mg tab ORAL SCH (08:57)
--- NOTE | 2020-07-13 09:01 | Pulmonology Progress Note ---
Subjective ROS Limited/Unobtainable: Yes Interval Events: None new reported Constitutional: Reports: no symptoms HEENT: Repors: no symptoms Respiratory: Reports: shortness of breath Cardiovascular: Reports: no symptoms Gastrointestinal/Abdominal: Reports: no symptoms Allergies: Coded Allergies: No Known Allergies (Unverified , 02/22/15) Objective Last 24 Hour Vital Signs Date Time Temp Pulse Resp B/P (MAP) Pulse Ox O2 Delivery O2 Flow Rate FiO2 07/13/20 08:00 97.7 84 20 115/67 (83) 95 07/13/20 08:00 93 07/13/20 04:00 76 07/13/20 04:00 98.6 89 20 119/66 (83) 95 07/13/20 00:00 92 07/12/20 23:31 97.9 97 20 167/76 (106) 100 07/12/20 21:00 Nasal Cannula 2.0 07/12/20 20:00 80 07/12/20 20:00 97.7 93 20 120/79 (93) 98 07/12/20 17:14 144/59 07/12/20 16:00 89 07/12/20 16:00 97.5 98 20 144/59 (87) 95 07/12/20 12:00 97.7 107 20 156/66 (96) 100 07/12/20 12:00 102 07/12/20 09:44 139/53 07/12/20 09:43 92 139/53 Intake and Output 07/12/20 07/13/20 19:00 07:00 # Voids 3 3 # Bowel Movements 1 General Appearance: no acute distress HEENT: atraumatic Respiratory: lungs clear Cardiovascular: normal rate, regular rhythm Abdomen: tender - RUQ Laboratory Tests 07/13/20 05:03: White Blood Count 9.7, Red Blood Count 3.98L, Hemoglobin 9.0L, Hematocrit 30.7L, Mean Corpuscular Volume 77L, Mean Corpuscular Hemoglobin 22.8L, Mean Corpuscular Hemoglobin Concent 29.5L, Red Cell Distribution Width 23.7H, Platelet Count 272, Mean Platelet Volume 7.0, Neutrophils (%) (Auto) 56.3, Lymphocytes (%) (Auto) 29.3, Monocytes (%) (Auto) 8.5, Eosinophils (%) (Auto) 4.6H, Basophils (%) (Auto) 1.3 Current Medications Medications (Trade) Dose Ordered Sig/Yasmany Route PRN Reason Start Time Stop Time Status Last Admin Dose Admin Acetaminophen (Tylenol) 500 mg Q6H PRN ORAL Mild Pain (Pain Scale 1-3) 07/05/20 20:30 08/04/20 20:29 07/11/20 23:20 Amlodipine Besylate (Norvasc) 10 mg DAILY ORAL 07/07/20 09:00 08/06/20 08:59 07/12/20 09:43 Clonidine HCl (Catapres Tab) 0.1 mg Q6H PRN ORAL For High Blood Pressure 07/02/20 02:15 09/30/20 02:14 Docusate Sodium (Colace) 100 mg THREE TIMES A DAY ORAL 07/02/20 18:00 08/01/20 17:59 07/12/20 17:14 Lisinopril (ZestriL) 10 mg BID ORAL 07/06/20 18:00 08/03/20 08:59 07/12/20 17:14 Ondansetron HCl (Zofran) 4 mg Q6H PRN IVP Nausea & Vomiting 07/12/20 12:15 08/11/20 12:14 07/12/20 12:52 Pantoprazole (Protonix) 40 mg EVERY 12 HOURS ORAL 07/02/20 21:00 08/01/20 20:59 07/12/20 20:59 Polyethylene Glycol (Miralax) 17 gm BEDTIME ORAL 07/05/20 21:00 08/04/20 20:59 07/12/20 20:59 Assessment/Plan Assessment/Plan 1. UTI - s/p Abx - f/u UCx negative (07/01) 2. Hypoxemia - Serial trops neg and 2D Echo EF 55-60% - Desaturates to 85% on room air during transfer, per PT -> now back on 2L NC - home oxygen has been delivered to pt's home. 3. Hypertensive urgency - now BP better controlled 4. COVID-19 negative (07/01) 5. DVT ppx - on SCD 6. Left base atelectasis on chest CT - Saturation <90% on room air -> continue low flow oxygen as needed 7. ? Liver cirrhosis - GI following - Abd US, hep panel 7. Anemia - Stool OB (+) -> pt refusing EGD/Humble per GI Home oxygen approved and delivered Medically stable for discharge from pulmonary standpoint. Continue oxygen 2L/min upon discharge. The care for this patient was discussed with my supervising physician Time spent for this case was approximately 31 minutes Jovan Santos Jul 13, 2020 09:01
--- NOTE | 2020-07-13 10:38 | Cardiac Electrophysiology PN ---
Assessment/Plan Assessment/Plan 1. Shortness of breath. EKG shows sinus rhythm with nonspecific ST-T wave abnormalities. Ruled out DE protocol. EF 65% on echocardiogram. 2. Accelerated hypertension. On Norvasc 10 po daily and Lisinopril 10 po bid On p.r.n. clonidine. 3. Shortness of breath and pneumonia. On 2 liter NC. Fu by Dr. Chaney. 4. Left base atelectasis on chest CT and possible pneumonia 5. Anemia, Stool OB pending. Refused EGD and colonoscopy per Dr Cayla MARTINEZ RN DC pending Subjective Subjective No CP or SOB on 2 liter nasal cannula. Stool OB is pending. Refused EGD and colonoscopy Objective Last 24 Hour Vital Signs Date Time Temp Pulse Resp B/P (MAP) Pulse Ox O2 Delivery O2 Flow Rate FiO2 07/13/20 09:00 Nasal Cannula 2.0 07/13/20 08:57 93 115/67 07/13/20 08:57 115/67 07/13/20 08:00 97.7 84 20 115/67 (83) 95 07/13/20 08:00 93 07/13/20 04:00 76 07/13/20 04:00 98.6 89 20 119/66 (83) 95 07/13/20 00:00 92 07/12/20 23:31 97.9 97 20 167/76 (106) 100 07/12/20 21:00 Nasal Cannula 2.0 07/12/20 20:00 80 07/12/20 20:00 97.7 93 20 120/79 (93) 98 07/12/20 17:14 144/59 07/12/20 16:00 89 07/12/20 16:00 97.5 98 20 144/59 (87) 95 07/12/20 12:00 97.7 107 20 156/66 (96) 100 07/12/20 12:00 102 Intake and Output 07/12/20 07/13/20 19:00 07:00 # Voids 3 3 # Bowel Movements 1 Laboratory Tests Test 07/13/20 05:03 White Blood Count 9.7 K/UL (4.8-10.8) Red Blood Count 3.98 M/UL (4.20-5.40) L Hemoglobin 9.0 G/DL (12.0-16.0) L Hematocrit 30.7 % (37.0-47.0) L Mean Corpuscular Volume 77 FL (80-99) L Mean Corpuscular Hemoglobin 22.8 PG (27.0-31.0) L Mean Corpuscular Hemoglobin Concent 29.5 G/DL (32.0-36.0) L Red Cell Distribution Width 23.7 % (11.6-14.8) H Platelet Count 272 K/UL (150-450) Mean Platelet Volume 7.0 FL (6.5-10.1) Neutrophils (%) (Auto) 56.3 % (45.0-75.0) Lymphocytes (%) (Auto) 29.3 % (20.0-45.0) Monocytes (%) (Auto) 8.5 % (1.0-10.0) Eosinophils (%) (Auto) 4.6 % (0.0-3.0) H Basophils (%) (Auto) 1.3 % (0.0-2.0) Objective HEAD AND NECK: No JVD. LUNGS: Clear. CARDIOVASCULAR: Regular S1 and S2 with no gallop or murmur. ABDOMEN: Soft. EXTREMITIES: 1+ pitting edema. Jude Stone MD Jul 13, 2020 10:38
--- NOTE | 2020-07-13 11:04 | Nephrology Progress Note ---
Assessment/Plan Problem List: (1) Iron deficiency anemia (2) Hypertensive urgency (3) UTI (urinary tract infection) (4) DMII (diabetes mellitus, type 2) Assessment: Hemoglobin A1c 7.1 Assessment Hypertensive urgency Anemia, low MCV Weakness Hiatus hernia UTI DM Plan July 13: No CHEM panel drawn today. CBC stable. Medication list reviewed. RN states that the patient is due for discharge. Stable from renal standpoint of view. July 12: Labs reviewed. No new labs drawn today. Renal parameters stable. Continue per current management. July 11: Labs reviewed. Renal parameters stable. Continue per consultants. July 10: Labs reviewed. Renal parameters stable. Continue per consultants. July 09: Labs reviewed. Abnormal electrolytes addressed. Continue per consultants. July 08: Labs reviewed. Low magnesium addressed. Medication list reviewed. Continue per consultants. July 07: No new labs drawn today. Blood pressure stable. Will check lab tomorrow. Medication list reviewed. Continue per consultants. July 06: Labs reviewed. Renal parameters stable. Blood pressure is stable. Medication list reviewed. Blood pressure medication adjusted July 05: Labs reviewed. Blood pressure in check. Continue per consultants. Medication list reviewed. July 04: No blood drawn today. Blood pressure better controlled. Will check lab tomorrow. Continue to rest. July 03: Blood pressure needs better control, hence lisinopril added to Norvasc. IV iron initiated for low iron anemia. Continue per consultants. Stable from renal standpoint of view. Antibiotic for UTI in process. Subjective ROS Limited/Unobtainable: No Constitutional: Reports: malaise Objective Objective Last 24 Hour Vital Signs Date Time Temp Pulse Resp B/P (MAP) Pulse Ox O2 Delivery O2 Flow Rate FiO2 07/13/20 09:00 Nasal Cannula 2.0 07/13/20 08:57 93 115/67 07/13/20 08:57 115/67 07/13/20 08:00 97.7 84 20 115/67 (83) 95 07/13/20 08:00 93 07/13/20 04:00 76 07/13/20 04:00 98.6 89 20 119/66 (83) 95 07/13/20 00:00 92 07/12/20 23:31 97.9 97 20 167/76 (106) 100 07/12/20 21:00 Nasal Cannula 2.0 07/12/20 20:00 80 07/12/20 20:00 97.7 93 20 120/79 (93) 98 07/12/20 17:14 144/59 07/12/20 16:00 89 07/12/20 16:00 97.5 98 20 144/59 (87) 95 07/12/20 12:00 97.7 107 20 156/66 (96) 100 07/12/20 12:00 102 Intake and Output 07/12/20 07/13/20 19:00 07:00 # Voids 3 3 # Bowel Movements 1 Current Medications Medications (Trade) Dose Ordered Sig/Yasmany Route PRN Reason Start Time Stop Time Status Last Admin Dose Admin Acetaminophen (Tylenol) 500 mg Q6H PRN ORAL Mild Pain (Pain Scale 1-3) 07/05/20 20:30 08/04/20 20:29 07/11/20 23:20 Amlodipine Besylate (Norvasc) 10 mg DAILY ORAL 07/07/20 09:00 08/06/20 08:59 07/12/20 09:43 Clonidine HCl (Catapres Tab) 0.1 mg Q6H PRN ORAL For High Blood Pressure 07/02/20 02:15 09/30/20 02:14 Docusate Sodium (Colace) 100 mg THREE TIMES A DAY ORAL 07/02/20 18:00 08/01/20 17:59 07/13/20 08:57 Lisinopril (ZestriL) 10 mg BID ORAL 07/06/20 18:00 08/03/20 08:59 07/12/20 17:14 Ondansetron HCl (Zofran) 4 mg Q6H PRN IVP Nausea & Vomiting 07/12/20 12:15 08/11/20 12:14 07/12/20 12:52 Pantoprazole (Protonix) 40 mg EVERY 12 HOURS ORAL 07/02/20 21:00 08/01/20 20:59 07/13/20 08:57 Polyethylene Glycol (Miralax) 17 gm BEDTIME ORAL 07/05/20 21:00 08/04/20 20:59 07/12/20 20:59 Laboratory Tests 07/13/20 05:03: White Blood Count 9.7, Red Blood Count 3.98L, Hemoglobin 9.0L, Hematocrit 30.7L, Mean Corpuscular Volume 77L, Mean Corpuscular Hemoglobin 22.8L, Mean Corpuscular Hemoglobin Concent 29.5L, Red Cell Distribution Width 23.7H, Platelet Count 272, Mean Platelet Volume 7.0, Neutrophils (%) (Auto) 56.3, Lymphocytes (%) (Auto) 29.3, Monocytes (%) (Auto) 8.5, Eosinophils (%) (Auto) 4.6H, Basophils (%) (Auto) 1.3 Height (Feet): 5 Height (Inches): 4.00 Weight (Pounds): 179 General Appearance: no apparent distress Cardiovascular: tachycardia Respiratory/Chest: decreased breath sounds Abdomen: distended Gordon Pritchett MD Jul 13, 2020 11:04
--- NOTE | 2020-07-13 11:07 | Infectious Diseases Prog Note ---
Assessment/Plan Assessment/Plan IMPRESSION: 1. Atelectasis versus pneumonia treated 2. Pyuria and bacteriuria, ? UTI, treated 3. Diabetes mellitus. 4. Hypertensive, accelerated 5. Cirrhosis. 6. Anemia. 7. 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 RECOMMENDATION: Observe off antibiotic f/u CBC Ophthalmology evaluation Subjective ROS Limited/Unobtainable: Yes Constitutional: Denies: fever Allergies: Coded Allergies: No Known Allergies (Unverified , 02/22/15) Objective Last 24 Hour Vital Signs Date Time Temp Pulse Resp B/P (MAP) Pulse Ox O2 Delivery O2 Flow Rate FiO2 07/13/20 09:00 Nasal Cannula 2.0 07/13/20 08:57 93 115/67 07/13/20 08:57 115/67 07/13/20 08:00 97.7 84 20 115/67 (83) 95 07/13/20 08:00 93 07/13/20 04:00 76 07/13/20 04:00 98.6 89 20 119/66 (83) 95 07/13/20 00:00 92 07/12/20 23:31 97.9 97 20 167/76 (106) 100 07/12/20 21:00 Nasal Cannula 2.0 07/12/20 20:00 80 07/12/20 20:00 97.7 93 20 120/79 (93) 98 07/12/20 17:14 144/59 07/12/20 16:00 89 07/12/20 16:00 97.5 98 20 144/59 (87) 95 07/12/20 12:00 97.7 107 20 156/66 (96) 100 07/12/20 12:00 102 Height (Feet): 5 Height (Inches): 4.00 Weight (Pounds): 179 HEENT: mucous membranes moist Respiratory/Chest: lungs clear Cardiovascular: normal rate Abdomen: soft, non tender Extremities: other - legs edema Neurologic/Psychiatric: other - sleeping Laboratory Tests Test 07/13/20 05:03 White Blood Count 9.7 K/UL (4.8-10.8) Red Blood Count 3.98 M/UL (4.20-5.40) L Hemoglobin 9.0 G/DL (12.0-16.0) L Hematocrit 30.7 % (37.0-47.0) L Mean Corpuscular Volume 77 FL (80-99) L Mean Corpuscular Hemoglobin 22.8 PG (27.0-31.0) L Mean Corpuscular Hemoglobin Concent 29.5 G/DL (32.0-36.0) L Red Cell Distribution Width 23.7 % (11.6-14.8) H Platelet Count 272 K/UL (150-450) Mean Platelet Volume 7.0 FL (6.5-10.1) Neutrophils (%) (Auto) 56.3 % (45.0-75.0) Lymphocytes (%) (Auto) 29.3 % (20.0-45.0) Monocytes (%) (Auto) 8.5 % (1.0-10.0) Eosinophils (%) (Auto) 4.6 % (0.0-3.0) H Basophils (%) (Auto) 1.3 % (0.0-2.0) Current Medications Medications (Trade) Dose Ordered Sig/Yasmany Route PRN Reason Start Time Stop Time Status Last Admin Dose Admin Acetaminophen (Tylenol) 500 mg Q6H PRN ORAL Mild Pain (Pain Scale 1-3) 07/05/20 20:30 08/04/20 20:29 07/11/20 23:20 Amlodipine Besylate (Norvasc) 10 mg DAILY ORAL 07/07/20 09:00 08/06/20 08:59 07/12/20 09:43 Clonidine HCl (Catapres Tab) 0.1 mg Q6H PRN ORAL For High Blood Pressure 07/02/20 02:15 09/30/20 02:14 Docusate Sodium (Colace) 100 mg THREE TIMES A DAY ORAL 07/02/20 18:00 08/01/20 17:59 07/13/20 08:57 Lisinopril (ZestriL) 10 mg BID ORAL 07/06/20 18:00 08/03/20 08:59 07/12/20 17:14 Ondansetron HCl (Zofran) 4 mg Q6H PRN IVP Nausea & Vomiting 07/12/20 12:15 08/11/20 12:14 07/12/20 12:52 Pantoprazole (Protonix) 40 mg EVERY 12 HOURS ORAL 07/02/20 21:00 08/01/20 20:59 07/13/20 08:57 Polyethylene Glycol (Miralax) 17 gm BEDTIME ORAL 07/05/20 21:00 08/04/20 20:59 07/12/20 20:59 Keanu Goodson MD Jul 13, 2020 11:07
--- NOTE | 2020-07-13 11:50 | NUR ---
d/c instructions discussed with daughter Ayanna assisted patient in vehicle per family -they are going straight home
--- NOTE | 2020-07-13 15:51 | NUR ---
INSURANCE CLINICALS FAXED TO [facility]#[phone] fax#[phone]
--- NOTE | 2020-07-14 13:35 | Discharge Summary ---
Discharge Summary Discharge Summary _ Date of admission: 07/01/2020 Date of discharge: 07/13/[address] Washington History of Present Illness and Brief Hospital Course Ms. Romo is an 80-year-old female with past medical history of hypertension, and diabetes mellitus, who presented to ED for evaluation of headache and fatigue x3 days. Chest x-ray showed some vascular congestion versus infiltrate, herniation of bowel in the left side versus mass. CT of chest showed hiatal hernia, moderate left base atelectasis, evidence of cirrhosis and cholecystectomy. Head CT was negative for acute intracranial abnormality. Patient was admitted to the hospital for further work-up. Patient had pyuria and bacteriuria. Patient was started on a short course of antibiotics. Follow-up urine culture was negative for growth. Patient was having acute respiratory distress on arrival. Patient was placed on low-flow oxygen via nasal cannula. Patient continued to fail weaning trials. Patient was found to be saturating well on low-flow oxygen via nasal cannula. However, patient desaturated in the 80s upon slight exertion. Patient required home oxygen. Patient presented with systolic blood pressure as high as 180s. Patient's blood pressure was better controlled with Norvasc and lisinopril. Clonidine was given as needed. Patient was found to be anemic. Her H&H remained stable, however. Patient was started on IV iron. Patient's stool occult blood was positive. Patient refused further evaluation with endoscopy and colonoscopy. Given the abnormal liver function test, patient was evaluated with an abdominal ultrasound which revealed heterogeneous liver with surface nodularity, likely cirrhosis. Mild ectasia of the common bile duct was demonstrated as well. Patient tested positive for hepatitis C antibody. Patient was instructed to follow-up with a GI specialist for hepatitis C treatment. Patient was treated for UTI, hypertension, anemia, and respiratory distress. Joey ovalle was medically stable for discharge and was discharged home with home oxygen on 07/13/2020. Consultants: Cardiology Dr. Stone Infectious disease Dr. Goodson Gastroenterology Dr. Martinez Nephrology Dr. Olea Pulmonology Dr. Chaney Discharge Condition Stable Discharge Activity As tolerated Final diagnoses Hypoxic respiratory failure Accelerated hypertension Left base atelectasis Iron deficiency anemia Pyuria Bacteriuria Diabetes mellitus Cirrhosis Status post cholecystectomy Positive hepatitis C antibody Left eye blindness Hiatal hernia I have been assigned to dictate discharge summary for this account. Jovan Santos Jul 14, 2020 13:35
== END 2020-07-13 11:50 | disposition home or self-care (01) | DRG 689 ==
LOC: EMR 18:20 → 2E 22:58 → CMPBEDREQ 23:07
DX: N39.0 Urinary tract infection, site not specified (principal); J96.01 Acute respiratory failure with hypoxia; J18.9 Pneumonia, unspecified organism; J98.11 Atelectasis; I16.0 Hypertensive urgency; R06.03 Acute respiratory distress; K44.9 Diaphragmatic hernia without obstruction or gangrene; D50.9 Iron deficiency anemia, unspecified; E11.9 Type 2 diabetes mellitus without complications; K74.60 Unspecified cirrhosis of liver; Z90.49 Acquired absence of other specified parts of digestive tract; H54.62 Unqualified visual loss, left eye, normal vision right eye
CPT/HCPCS: 36415; 70450; 71045; 71250; 76700; 80053; 80061; 81003; 82105; 82270; 82607; 82728; 82746; 82977; 83036; 83540; 83550; 83735; 83880; 84100; 84443; 84484; 84550; 85025; 85610; 85730; 86039; 86140; 86235; 86705; 86709; 86803; 87040; 87086; 87340; 93306; J2405